=== PATIENT | female | born 1975 | race Caucasian/White ===

== ENCOUNTER 2016-08-10 14:38 | Emergency (ER) | payer MEDICARE, MEDICAID ==
[2005-12-31 18:10] VITALS: BP 97/63
[~2016-08-10] VITALS: Ht 157.5 cm; Wt 87.7 kg
[~2016-08-10 14:38] MED LIST: ABILIFY30 MG PO; ALBUTEROL0.83 MG/ML IH; ANTABUSE250 MG PO; ATARAX; ATARAX50 MG PO; ATIVAN2 MG PO; B COMPLEX & B121 TAB PO; B12 SHOTS; BENZTROPINE1 MG PO; BUSPIRONE; CARBATROL300 MG; CATAPRES 0.1MG0.1 MG PO; CHLORPROMAZINE10 M1 PO; CIPRO 500MG TA500 MG PO; CLINDAMYCIN300 MG PO; CLONAZEPAM0.5 MG PO; DESYREL 50MG50 MG PO; DEXILANT PO; DISULFIRAM250 MG; DUO-KAPS1 CAP PO; EFFEXOR 3737.5 MG/TA PO; EQUETRO300MG; FERROUSAL325 MG; FLAGYL500 MG PO; GEODON80 MG PO; HYDROXY; KLONOPIN 0.5MG0.5 MG PO; KLONOPIN 1MG1 MG PO; LAMICTAL 100MG100 MG PO; LAMICTAL CD5 MG PO; LAMICTAL XR100 MG PO; LAMICTAL XR200 MG PO; LAMICTAL150 MG PO; LATUDA80 MG PO; LEXAPRO 5MG5 MG PO; LEXAPRO20 MG PO; LIP PO; LIPITOR 80MG80 MG PO; LITHIUM 30300 MG/CAP PO; LITHIUM 60600 MG/CAP PO; LITHIUM8 MEQ/5 ML PO; METAMUCIL1 PDR PO; MINIPRESS 1M1 MG/CAP PO; MINIPRESS 5M5 MG/CAP PO; MINIPRESS2 MG; MINIPRESS2 MG PO; NEURONTIN100 MG/CAP PO; NEXIUM PO; NORCO 325 MG-51 TAB PO; OLEPTRO150 MG PO; PERCOCET 325 MG1 TA2 PO; PERCOCET 325 MG1 TAB PO; PERCOCET 500 MG1 TAB PO; PERPHENAZINE; PRIL40 PO; PRILOSEC 20MG20 MG PO; PROTONIX 40MG T40 MG PO; RT ADVAIR 228 DISKUS IH; RT SPIRIVA18 MCG IH; TAMIFLU 75MG75 MG PO; TEGRETOL100 MG PO; TRILEPTAL 300M300 MG PO; VALIUM 5MG T5 MG/TAB PO; VENLAFAXINE225 MG PO; VESICARE10 MG PO; VITAMIN B121000 MCG SQ; ZANAFLEX 4MG TAB4 MG PO; ZANTAC150 MG PO; ZIPRASIDONE; ZOCOR 80MG80 MG PO; ZOCOR5 MG; ZOFRAN 4MG T4 MG/TAB PO; ZOFRAN ODT4 MG PO; ZOLOFT 100MG100 MG PO; [UNRECOGNIZED DRUG - OTHER] PO; antibiotic
[2016-08-10 14:39] VITALS: TEMP 98
[2016-08-10 15:26] LABS: BASO % 0.2 % (0.0-2.0); EOS # 0.4 (0.0-0.7); EOS % 2.2 % (0-4.0); GRAN # 11.7 (1.4-6.5); GRAN % 71.7 % (42.2-75.2); HEMATOCRIT 41.7 % (37.0-47.0); HEMOGLOBIN 13.9 g/dl (12.5-16.0); LYMPH # 3.5 (1.2-3.4); LYMPH % 21.3 % (20.0-51.0); MEAN CELL VOLUME 100 fl (80.0-100.0); MEAN CORPUSCULAR HEMOGLOBIN 33 pg (27.0-31.0); MEAN CORPUSCULAR HGB CONC 33 g/dl (33.0-37.0); MEAN PLATELET VOLUME 8.6 fl (7.4-10.4); MONO # 0.7 (0.1-0.6); MONO % 4.3 % (1.7-9.3); PLATELET COUNT 290 K/mm3 (130-400); RED BLOOD COUNT 4.16 M/mm3 (4.10-5.30); REDCELL DISTRIBUTION WIDTH-CV 12.7 % (11.5-14.5); WHITE BLOOD COUNT 16.3 K/mm3 (4.8-10.8)
[2016-08-10 15:34] LABS: ADJUSTED CALCIUM 9.2 mg/dL (8.4-10.2); ALANINE AMINOTRANSFERASE 35 U/L (9-52); ALBUMIN 4.2 gm/dL (3.5-5.0); ALKALINE PHOSPHATASE 74 U/L (50-136); ANION GAP 11 mmol/L (7-16); BILIRUBIN,TOTAL 0.8 mg/dL (0.0-1.0); BLOOD UREA NITROGEN 7 mg/dL (7-17); CALCIUM 9.4 mg/dL (8.4-10.2); CARBON DIOXIDE 23 mmol/L (22-30); CHLORIDE 105 mmol/L (98-107); CREATININE, serum 1.08 mg/dL (0.52-1.25); GLUCOSE 60 mg/dL (74-106); LIPASE 39 U/L (23-300); POTASSIUM 3.8 mmol/L (3.4-5.0); SODIUM 139 mmol/L (137-145); TOTAL PROTEIN 6.7 gm/dL (6.4-8.2)
[2016-08-10] MEDS ORDERED: NORCO 325 MG-101 TAB PO (15:44)
[2016-08-10] MEDS ORDERED: BREO IH (15:45)
[2016-08-10 15:46] LABS: TROPONIN-I < 0.012 ng/mL (0.000-0.034)
[2016-08-10] MEDS ORDERED: LAMICTAL200 MG PO (15:47)
[2016-08-10] MEDS ORDERED: ABILIFY5 MG PO (15:47)
[2016-08-10 15:48] LABS: PH 6 (5-8); URINE APPEARANCE Hazy; URINE BACTERIA Rare /hpf; URINE BILIRUBIN Negative (NEGATIVE); URINE BLOOD 2+ (NEGATIVE); URINE COLOR Yellow; URINE GLUCOSE Negative (NEGATIVE); URINE KETONE Negative (NEGATIVE); URINE UROBILINOGEN Negative (NEGATIVE); URINE WBC 0-2 /hpf
[2016-08-10] MEDS ORDERED: LAMICTAL 100MG100 MG PO (15:48)
[2016-08-10] MEDS ORDERED: NEXIUM 40MG40 MG PO (15:49)
[2016-08-10] MEDS ORDERED: CEFTIN500 MG PO (17:21)
[2016-08-10] MEDS ORDERED: VALIUM 5MG T5 MG/TAB PO (17:23)
[2016-08-10 18:00] VITALS: BP 108/69; PULSE 64
== END 2016-08-10 18:00 | disposition home or self-care (01) ==
LOC: COL.ER 14:38
PROVIDERS: Physician Assistant
DX: R07.89 Other chest pain (principal); M62.830 Muscle spasm of back; J44.9 Chronic obstructive pulmonary disease, unspecified; F17.210 Nicotine dependence, cigarettes, uncomplicated
CPT/HCPCS: J2270

== ENCOUNTER 2016-09-12 15:14 | Emergency (ER) | payer MEDICARE, MEDICAID ==
[2005-12-31 18:10] VITALS: BP 97/63
[~2016-09-12] VITALS: Ht 157.5 cm; Wt 90.0 kg
[~2016-09-12 15:14] MED LIST changes: +ABILIFY5 MG PO; +BREO IH; +CEFTIN500 MG PO; +LAMICTAL200 MG PO; +NEXIUM 40MG40 MG PO; +NORCO 325 MG-101 TAB PO
[2016-09-12 15:15] VITALS: BP 113/82; TEMP 98.3
[2016-09-12 16:41] VITALS: PULSE 90
== END 2016-09-12 16:42 | disposition home or self-care (01) ==
LOC: COL.ER 15:14
DX: S30.0XXA Contusion of lower back and pelvis, initial encounter (principal); W01.198A Fall on same level from slipping, tripping and stumbling with subsequent striking against other object, initial encounter; Y92.009 Unspecified place in unspecified non-institutional (private) residence as the place of occurrence of the external cause
CPT/HCPCS: J1885

== ENCOUNTER 2016-12-21 10:40 | Emergency (ER) | payer MEDICARE, MEDICAID ==
[2005-12-31 18:10] VITALS: BP 97/63
[~2016-12-21] VITALS: Ht 154.9 cm; Wt 85.5 kg
[2016-12-21 10:46] VITALS: TEMP 97.7
[2016-12-21 11:37] LABS: BASO % 0.2 % (0.0-2.0); EOS # 0.2 (0.0-0.7); EOS % 1.4 % (0-4.0); GRAN # 8.6 (1.4-6.5); GRAN % 77.7 % (42.2-75.2); HEMATOCRIT 44.1 % (37.0-47.0); HEMOGLOBIN 14.6 g/dl (12.5-16.0); LYMPH # 1.6 (1.2-3.4); LYMPH % 14.8 % (20.0-51.0); MEAN CELL VOLUME 100 fl (80.0-100.0); MEAN CORPUSCULAR HEMOGLOBIN 33 pg (27.0-31.0); MEAN CORPUSCULAR HGB CONC 33 g/dl (33.0-37.0); MEAN PLATELET VOLUME 8.7 fl (7.4-10.4); MONO # 0.6 (0.1-0.6); MONO % 5.4 % (1.7-9.3); PLATELET COUNT 310 K/mm3 (130-400); RED BLOOD COUNT 4.42 M/mm3 (4.10-5.30); REDCELL DISTRIBUTION WIDTH-CV 13.2 % (11.5-14.5)
[2016-12-21 11:39] LABS: ADJUSTED CALCIUM 9.7 mg/dL (8.4-10.2); ALANINE AMINOTRANSFERASE 29 U/L (9-52); ALBUMIN 4.3 gm/dL (3.5-5.0); ALKALINE PHOSPHATASE 91 U/L (50-136); ANION GAP 9 mmol/L (7-16); BILIRUBIN,TOTAL 0.7 mg/dL (0.0-1.0); BLOOD UREA NITROGEN 2 mg/dL (7-17); CALCIUM 9.9 mg/dL (8.4-10.2); CARBON DIOXIDE 23 mmol/L (22-30); CHLORIDE 107 mmol/L (98-107); CREATININE, serum 0.83 mg/dL (0.52-1.25); GLUCOSE 96 mg/dL (74-106); POTASSIUM 3.5 mmol/L (3.4-5.0); SODIUM 139 mmol/L (137-145); TOTAL PROTEIN 7.1 gm/dL (6.4-8.2)
[2016-12-21 11:40] LABS: AMPHETAMINE URINE POSITIVE; BARBITURATES URINE NEGATIVE; BENZODIAZEPINES URINE NEGATIVE; BUPRENORPHINE URINE NEGATIVE; METHADONE URINE NEGATIVE; OPIATES URINE POSITIVE; OXYCODONE URINE NEGATIVE; PHENCYCLIDINE URINE NEGATIVE; PROPOXYPHENE URINE NEGATIVE; THC CANNABINOIDS URINE NEGATIVE
[2016-12-21] MEDS ORDERED: ABIL400 (12:25)
[2016-12-21] MEDS ORDERED: LIORESAL 1010 MG/TAB PO (12:26)
[2016-12-21] MEDS ORDERED: LITHIUM CA150 MG/CAP PO (12:36)
[2016-12-21] MEDS ORDERED: PATADAY 2.5 ML2.5 ML OU (12:41)
[2016-12-21] MEDS ORDERED: ADDERALL10 MG PO (12:42)
[2016-12-21] MEDS ORDERED: VENTOLIN0.09 MG IH (12:42)
[2016-12-21] MEDS ORDERED: BASE, PCCA POLY1 FLA (12:43)
[2016-12-21] MEDS ORDERED: REXULTI1 MG PO (12:44)
[2016-12-21] MEDS ORDERED: MYRBETR50MG PO (12:44)
[2016-12-21] MEDS ORDERED: CELEBREX 200MG200 MG PO (12:45)
[2016-12-21] MEDS ORDERED: INCRUSE EL62.5 MCG/A IH (12:45)
[2016-12-21 14:00] VITALS: BP 139/93
[2016-12-21 14:21] VITALS: PULSE 78
== END 2016-12-21 14:22 | disposition home or self-care (01) ==
LOC: COL.ER 10:40
PROVIDERS: Physician Assistant Medical
DX: R26.81 Unsteadiness on feet (principal); F31.9 Bipolar disorder, unspecified; F25.9 Schizoaffective disorder, unspecified

== ENCOUNTER 2016-12-23 09:34 | Emergency (ER) | payer MEDICARE, MEDICAID ==
[2005-12-31 18:10] VITALS: BP 97/63
[~2016-12-23] VITALS: Ht 154.9 cm; Wt 81.8 kg
[~2016-12-23 09:34] MED LIST changes: +ABIL400; +ADDERALL10 MG PO; +BASE, PCCA POLY1 FLA; +CELEBREX 200MG200 MG PO; +INCRUSE EL62.5 MCG/A IH; +LIORESAL 1010 MG/TAB PO; +LITHIUM CA150 MG/CAP PO; +MYRBETR50MG PO; +PATADAY 2.5 ML2.5 ML OU; +REXULTI1 MG PO; +VENTOLIN0.09 MG IH
[2016-12-23 09:48] VITALS: BP 131/77; TEMP 98.3
[2016-12-23 10:58] LABS: BASO % 0.2 % (0.0-2.0); EOS # 0.5 (0.0-0.7); EOS % 3.8 % (0-4.0); GRAN # 8.7 (1.4-6.5); GRAN % 71.3 % (42.2-75.2); HEMATOCRIT 42.1 % (37.0-47.0); HEMOGLOBIN 13.9 g/dl (12.5-16.0); LYMPH # 2.3 (1.2-3.4); LYMPH % 18.4 % (20.0-51.0); MEAN CELL VOLUME 100 fl (80.0-100.0); MEAN CORPUSCULAR HEMOGLOBIN 33 pg (27.0-31.0); MEAN CORPUSCULAR HGB CONC 33 g/dl (33.0-37.0); MEAN PLATELET VOLUME 8.6 fl (7.4-10.4); MONO # 0.7 (0.1-0.6); PLATELET COUNT 264 K/mm3 (130-400); RED BLOOD COUNT 4.21 M/mm3 (4.10-5.30); REDCELL DISTRIBUTION WIDTH-CV 13.3 % (11.5-14.5); WHITE BLOOD COUNT 12.3 K/mm3 (4.8-10.8)
[2016-12-23 11:16] LABS: ACETAMINOPHEN < 10 ug/mL (10-30); ADJUSTED CALCIUM 9.8 mg/dL (8.4-10.2); ALANINE AMINOTRANSFERASE 31 U/L (9-52); ALBUMIN 3.7 gm/dL (3.5-5.0); ALKALINE PHOSPHATASE 84 U/L (50-136); ANION GAP 9 mmol/L (7-16); BILIRUBIN,TOTAL 0.9 mg/dL (0.0-1.0); BLOOD UREA NITROGEN 5 mg/dL (7-17); CALCIUM 9.6 mg/dL (8.4-10.2); CARBON DIOXIDE 22 mmol/L (22-30); CHLORIDE 107 mmol/L (98-107); CREATININE, serum 1.01 mg/dL (0.52-1.25); GLUCOSE 93 mg/dL (74-106); POTASSIUM 3.5 mmol/L (3.4-5.0); SALICYLATE < 1.0 mg/dL; SODIUM 138 mmol/L (137-145); TOTAL PROTEIN 6.4 gm/dL (6.4-8.2)
[2016-12-23 11:24] LABS: AMPHETAMINE URINE POSITIVE; BARBITURATES URINE NEGATIVE; BENZODIAZEPINES URINE NEGATIVE; BUPRENORPHINE URINE NEGATIVE; METHADONE URINE NEGATIVE; OPIATES URINE POSITIVE; OXYCODONE URINE NEGATIVE; PHENCYCLIDINE URINE NEGATIVE; PROPOXYPHENE URINE NEGATIVE; THC CANNABINOIDS URINE NEGATIVE
[2016-12-23 11:24] LABS: LITHIUM 2.2 mmol/L (0.6-1.2)
[2016-12-23 17:38] VITALS: PULSE 71
== END 2016-12-23 18:00 ==
LOC: COL.ER 09:34
PROVIDERS: Nurse Practitioner
DX: F29 Unspecified psychosis not due to a substance or known physiological condition (principal); F15.90 Other stimulant use, unspecified, uncomplicated; F31.9 Bipolar disorder, unspecified; F25.9 Schizoaffective disorder, unspecified; Z90.49 Acquired absence of other specified parts of digestive tract; Z90.710 Acquired absence of both cervix and uterus

== ENCOUNTER → 2017-02-19 | Outpatient (CLI) | payer MEDICARE, MEDICAID | LOC: COL.RAD 10:00 | DX: R13.10 Dysphagia, unspecified (principal) ==

== ENCOUNTER 2017-03-19 10:52 | Emergency (ER) | payer MEDICARE, MEDICAID ==
[2005-12-31 18:10] VITALS: BP 97/63
[~2017-03-19] VITALS: Ht 157.5 cm; Wt 89.5 kg
[2017-03-19 11:09] VITALS: BP 118/73; PULSE 76; TEMP 98.7
== END 2017-03-19 13:44 | disposition home or self-care (01) ==
LOC: COL.ER 10:52
DX: G89.29 Other chronic pain (principal); M25.551 Pain in right hip; I10 Essential (primary) hypertension; F25.0 Schizoaffective disorder, bipolar type; F12.10 Cannabis abuse, uncomplicated; F17.210 Nicotine dependence, cigarettes, uncomplicated; Z90.710 Acquired absence of both cervix and uterus; Z90.49 Acquired absence of other specified parts of digestive tract; Z98.51 Tubal ligation status; Z98.890 Other specified postprocedural states
CPT/HCPCS: J1100; J1885

== ENCOUNTER → 2017-04-09 | Outpatient (CLI) | payer MEDICARE, MEDICAID | LOC: COL.CARD 04-07 11:00 | DX: R55 Syncope and collapse (principal) ==

== ENCOUNTER 2017-05-14 10:36 | Emergency (ER) | payer MEDICARE ==
[2005-12-31 18:10] VITALS: BP 97/63
[~2017-05-14] VITALS: Ht 157.5 cm; Wt 90.9 kg
[2017-05-14 10:39] VITALS: TEMP 98.6
[2017-05-14 11:41] LABS: BASO % 0.4 % (0.0-2.0); EOS # 0.2 (0.0-0.7); EOS % 1.9 % (0-4.0); GRAN # 8.1 (1.4-6.5); GRAN % 72.1 % (42.2-75.2); HEMATOCRIT 43.1 % (37.0-47.0); HEMOGLOBIN 14.3 g/dl (12.5-16.0); LYMPH # 2.2 (1.2-3.4); LYMPH % 19.6 % (20.0-51.0); MEAN CELL VOLUME 97 fl (80.0-100.0); MEAN CORPUSCULAR HEMOGLOBIN 32 pg (27.0-31.0); MEAN CORPUSCULAR HGB CONC 33 g/dl (33.0-37.0); MONO # 0.6 (0.1-0.6); MONO % 5.6 % (1.7-9.3); PLATELET COUNT 320 K/mm3 (130-400); RED BLOOD COUNT 4.46 M/mm3 (4.10-5.30); REDCELL DISTRIBUTION WIDTH-CV 12.5 % (11.5-14.5)
[2017-05-14 11:53] LABS: ALANINE AMINOTRANSFERASE 28 U/L (9-52); ALBUMIN 4.4 gm/dL (3.5-5.0); ALKALINE PHOSPHATASE 110 U/L (50-136); ANION GAP 12 mmol/L (7-16); AST,SGOT 31 U/L (15-37); BILIRUBIN,TOTAL 0.6 mg/dL (0.0-1.0); BLOOD UREA NITROGEN 7 mg/dL (7-17); CALCIUM 9.5 mg/dL (8.4-10.2); CARBON DIOXIDE 25 mmol/L (22-30); CHLORIDE 107 mmol/L (98-107); CREATININE, serum 0.88 mg/dL (0.52-1.25); GLUCOSE 106 mg/dL (74-106); POTASSIUM 3.7 mmol/L (3.4-5.0); SODIUM 143 mmol/L (137-145); TOTAL PROTEIN 7.3 gm/dL (6.4-8.2)
[2017-05-14 12:07] LABS: PROLACTIN 52.8 ng/mL (3.0-18.6)
[2017-05-14 12:48] LABS: LITHIUM < 0.2 mmol/L (0.6-1.2)
[2017-05-14] MEDS ORDERED: LEXAPRO 5MG5 MG PO (13:47)
[2017-05-14] MEDS ORDERED: TRILEPTAL 300M300 MG PO (14:23)
[2017-05-14 14:39] VITALS: BP 134/85; PULSE 60
== END 2017-05-14 14:47 | disposition home or self-care (01) ==
LOC: COL.ER 10:36
PROVIDERS: Emergency Medicine
DX: G40.909 Epilepsy, unspecified, not intractable, without status epilepticus (principal); J44.9 Chronic obstructive pulmonary disease, unspecified; F17.210 Nicotine dependence, cigarettes, uncomplicated
CPT/HCPCS: J7030

== ENCOUNTER 2017-05-27 08:21 | Emergency (ER) | payer MEDICARE ==
[2005-12-31 18:10] VITALS: BP 97/63
[~2017-05-27] VITALS: Ht 157.5 cm; Wt 90.9 kg
[2017-05-27 08:24] VITALS: PULSE 90; TEMP 97.7
[2017-05-27 09:05] LABS: COLLECTION METHOD CLEAN CATCH
[2017-05-27 09:13] LABS: MUCOUS Present /lpf; PH 5 (5-8); URINE APPEARANCE Hazy; URINE BACTERIA Rare /hpf; URINE BILIRUBIN Negative (NEGATIVE); URINE BLOOD 1+ (NEGATIVE); URINE COLOR Yellow; URINE GLUCOSE Negative (NEGATIVE); URINE KETONE Negative (NEGATIVE); URINE LEUKOCYTE ESTERASE Negative (NEGATIVE); URINE NITRATE Negative (NEGATIVE); URINE PROTEIN(semi-quant) Negative (NEGATIVE); URINE RBC 0-2 /hpf; URINE UROBILINOGEN Negative (NEGATIVE)
[2017-05-27 11:09] VITALS: BP 104/69
[2017-05-27] MEDS ORDERED: MAG-OX 400400 MG/TAB PO (11:27)
== END 2017-05-27 11:18 | disposition home or self-care (01) ==
LOC: COL.ER 08:21
PROVIDERS: Physician Assistant
DX: G43.909 Migraine, unspecified, not intractable, without status migrainosus (principal); G40.909 Epilepsy, unspecified, not intractable, without status epilepticus; J44.9 Chronic obstructive pulmonary disease, unspecified; G89.29 Other chronic pain; F17.210 Nicotine dependence, cigarettes, uncomplicated
CPT/HCPCS: J0595; J2550

== ENCOUNTER 2017-05-29 19:18 | Inpatient (IN) | payer MEDICARE ==
[~2017-05-29] VITALS: Ht 157.5 cm; Wt 96.0 kg
[~2017-05-29 19:18] MED LIST changes: +MAG-OX 400400 MG/TAB PO
[2017-05-29 21:04] LABS: BASO # 0.1 (0.0-0.2); BASO % 0.4 % (0.0-2.0); EOS # 0.4 (0.0-0.7); EOS % 2.7 % (0-4.0); GRAN # 8.3 (1.4-6.5); GRAN % 63.6 % (42.2-75.2); HEMATOCRIT 40.6 % (37.0-47.0); HEMOGLOBIN 13.7 g/dl (12.5-16.0); LYMPH # 3.3 (1.2-3.4); LYMPH % 25.6 % (20.0-51.0); MEAN CELL VOLUME 94 fl (80.0-100.0); MEAN CORPUSCULAR HEMOGLOBIN 32 pg (27.0-31.0); MEAN CORPUSCULAR HGB CONC 34 g/dl (33.0-37.0); MEAN PLATELET VOLUME 8.4 fl (7.4-10.4); MONO % 7.3 % (1.7-9.3); PLATELET COUNT 367 K/mm3 (130-400); RED BLOOD COUNT 4.32 M/mm3 (4.10-5.30); REDCELL DISTRIBUTION WIDTH-CV 12.2 % (11.5-14.5)
[2017-05-29 21:19] LABS: ALANINE AMINOTRANSFERASE 31 U/L (9-52); ALBUMIN 4.4 gm/dL (3.5-5.0); ALKALINE PHOSPHATASE 101 U/L (50-136); ANION GAP 8 mmol/L (7-16); AST,SGOT 31 U/L (15-37); BILIRUBIN,TOTAL 0.6 mg/dL (0.0-1.0); BLOOD UREA NITROGEN 10 mg/dL (7-17); CALCIUM 9.3 mg/dL (8.4-10.2); CARBON DIOXIDE 22 mmol/L (22-30); CHLORIDE 94 mmol/L (98-107); CREATININE, serum 0.91 mg/dL (0.52-1.25); GLUCOSE 89 mg/dL (74-106); POTASSIUM 4.5 mmol/L (3.4-5.0); SODIUM 124 mmol/L (137-145); TOTAL PROTEIN 7.4 gm/dL (6.4-8.2)
[2017-05-29 21:20] LABS: C-REACTIVE PROTEIN < 0.5 mg/dL (0.0-0.9)
[2017-05-29] MEDS ORDERED: TRILEPTAL600 MG PO (21:41)
[2017-05-29] MEDS ORDERED: GEODON80 MG PO (21:45)
[2017-05-29 23:49] VITALS: BP 115/75; PULSE 78; TEMP 97.4
[2017-05-30 04:18] VITALS: BP 114/78; PULSE 66; TEMP 97.6
[2017-05-30 04:24] LABS: BASO % 0.4 % (0.0-2.0); EOS # 0.5 (0.0-0.7); EOS % 4.2 % (0-4.0); GRAN # 5.7 (1.4-6.5); GRAN % 52.4 % (42.2-75.2); HEMATOCRIT 38.2 % (37.0-47.0); HEMOGLOBIN 12.9 g/dl (12.5-16.0); LYMPH # 3.7 (1.2-3.4); LYMPH % 34.3 % (20.0-51.0); MEAN CELL VOLUME 93 fl (80.0-100.0); MEAN CORPUSCULAR HEMOGLOBIN 32 pg (27.0-31.0); MEAN CORPUSCULAR HGB CONC 34 g/dl (33.0-37.0); MEAN PLATELET VOLUME 8.4 fl (7.4-10.4); MONO # 0.9 (0.1-0.6); MONO % 8.4 % (1.7-9.3); PLATELET COUNT 327 K/mm3 (130-400); REDCELL DISTRIBUTION WIDTH-CV 12.3 % (11.5-14.5)
[2017-05-30 04:34] LABS: CALCIUM 8.8 mg/dL (8.4-10.2); CHOLESTEROL RISK RATIO 4.4; CREATININE, serum 0.87 mg/dL (0.52-1.25); POTASSIUM 4.1 mmol/L (3.4-5.0)
[2017-05-30 07:32] VITALS: BP 110/70; PULSE 74; TEMP 98.1
[2017-05-30 11:54] VITALS: BP 110/70; PULSE 67; TEMP 97.9
[2017-05-30 15:38] VITALS: BP 111/67; PULSE 69; TEMP 97.9
[2017-05-30 19:15] VITALS: BP 113/65; PULSE 64; TEMP 97.9
[2017-05-31 00:07] VITALS: BP 98/59; PULSE 70; TEMP 97.8
[2017-05-31 04:57] VITALS: BP 99/57; PULSE 66; TEMP 98.2
[2017-05-31 04:59] LABS: MAGNESIUM 1.6 mg/dL (1.6-2.3)
[2017-05-31 08:11] VITALS: BP 102/59; PULSE 81; TEMP 98.2
[2017-05-31] MEDS ORDERED: PERCOCET 325 MG1 TA2 PO (10:41)
[2017-05-31 11:54] VITALS: BP 93/60; PULSE 64; TEMP 97.9
[2017-05-31 15:08] VITALS: BP 107/44; PULSE 72; TEMP 98.6
[2017-05-31 15:12] VITALS: BP 108/63; PULSE 73; TEMP 97.6
[2017-05-31] MEDS ORDERED: LEXAPRO 10MG10 MG PO (16:17)
[2017-05-31] MEDS ORDERED: CLARITIN 1010 MG/TAB PO (16:22)
[2017-05-31] MEDS ORDERED: SINGULAIR 110 MG/TAB PO (16:22)
[2017-05-31] MEDS ORDERED: NEXIUM 40MG40 MG PO (16:22)
[2017-05-31] MEDS ORDERED: NEURONTIN300 MG/CAP PO (16:23)
[2017-05-31] MEDS ORDERED: ENABLEX15 MG PO (16:23)
[2017-05-31] MEDS ORDERED: TORADOL 10MG TA10 MG PO (16:24)
[2017-05-31] MEDS ORDERED: D3-5050000 IU PO (16:24)
[2017-05-31] MEDS ORDERED: LAMICTAL 25MG T25 MG PO (16:30)
== END 2017-05-31 17:45 | disposition home or self-care (01) | DRG 641 ==
LOC: COL.ER 19:18 → MEDICAL 21:31
PROVIDERS: Emergency Medicine; Nurse Practitioner
DX: E87.1 Hypo-osmolality and hyponatremia (principal); R56.9 Unspecified convulsions; J44.9 Chronic obstructive pulmonary disease, unspecified; T42.1X5A Adverse effect of iminostilbenes, initial encounter; F31.9 Bipolar disorder, unspecified; F17.210 Nicotine dependence, cigarettes, uncomplicated; G43.119 Migraine with aura, intractable, without status migrainosus
CPT/HCPCS: 99222-AI; 99232-AI; 99239; J0595; J1170; J1200; J1885; J2405; J2550; J2765; J7030; J7040; J7050; Q9967

== ENCOUNTER 2017-06-05 11:50 | Emergency (ER) | payer MEDICARE ==
[2005-12-31 18:10] VITALS: BP 97/63
[~2017-06-05] VITALS: Ht 157.5 cm; Wt 90.9 kg
[~2017-06-05 11:50] MED LIST changes: +CLARITIN 1010 MG/TAB PO; +D3-5050000 IU PO; +ENABLEX15 MG PO; +LAMICTAL 25MG T25 MG PO; +LEXAPRO 10MG10 MG PO; +NEURONTIN300 MG/CAP PO; +SINGULAIR 110 MG/TAB PO; +TORADOL 10MG TA10 MG PO; +TRILEPTAL600 MG PO
[2017-06-05 11:55] VITALS: TEMP 98.8
[2017-06-05 13:52] LABS: BASO % 0.3 % (0.0-2.0); EOS # 0.3 (0.0-0.7); EOS % 2.9 % (0-4.0); GRAN % 68.4 % (42.2-75.2); HEMATOCRIT 40.8 % (37.0-47.0); HEMOGLOBIN 13.2 g/dl (12.5-16.0); LYMPH # 2.2 (1.2-3.4); LYMPH % 21.6 % (20.0-51.0); MEAN CELL VOLUME 97 fl (80.0-100.0); MEAN CORPUSCULAR HEMOGLOBIN 31 pg (27.0-31.0); MEAN CORPUSCULAR HGB CONC 32 g/dl (33.0-37.0); MEAN PLATELET VOLUME 8.8 fl (7.4-10.4); MONO # 0.7 (0.1-0.6); MONO % 6.6 % (1.7-9.3); PLATELET COUNT 311 K/mm3 (130-400); RED BLOOD COUNT 4.21 M/mm3 (4.10-5.30); REDCELL DISTRIBUTION WIDTH-CV 13.1 % (11.5-14.5)
[2017-06-05 14:07] LABS: ALANINE AMINOTRANSFERASE 38 U/L (9-52); ALBUMIN 4.3 gm/dL (3.5-5.0); ALKALINE PHOSPHATASE 107 U/L (50-136); ANION GAP 7 mmol/L (7-16); AST,SGOT 32 U/L (15-37); BILIRUBIN,TOTAL 0.5 mg/dL (0.0-1.0); BLOOD UREA NITROGEN 9 mg/dL (7-17); CALCIUM 9.7 mg/dL (8.4-10.2); CARBON DIOXIDE 23 mmol/L (22-30); CHLORIDE 106 mmol/L (98-107); CREATININE, serum 1.03 mg/dL (0.52-1.25); GLUCOSE 103 mg/dL (74-106); POTASSIUM 4.1 mmol/L (3.4-5.0); SODIUM 136 mmol/L (137-145); TOTAL PROTEIN 7.3 gm/dL (6.4-8.2)
[2017-06-05 14:18] LABS: C-REACTIVE PROTEIN < 0.5 mg/dL (0.0-0.9)
[2017-06-05 14:19] LABS: COLLECTION METHOD CLEAN CATCH
[2017-06-05 14:25] LABS: MUCOUS Present /lpf; PH 7 (5-8); URINE APPEARANCE Clear; URINE BACTERIA Rare /hpf; URINE BILIRUBIN Negative (NEGATIVE); URINE BLOOD 2+ (NEGATIVE); URINE COLOR Yellow; URINE GLUCOSE Negative (NEGATIVE); URINE KETONE Negative (NEGATIVE); URINE LEUKOCYTE ESTERASE Negative (NEGATIVE); URINE NITRATE Negative (NEGATIVE); URINE PROTEIN(semi-quant) Negative (NEGATIVE); URINE RBC 0-2 /hpf; URINE UROBILINOGEN Negative (NEGATIVE)
[2017-06-05 15:54] VITALS: BP 116/78; PULSE 78
== END 2017-06-05 15:58 | disposition home or self-care (01) ==
LOC: COL.ER 11:50
PROVIDERS: Family Medicine
DX: G43.909 Migraine, unspecified, not intractable, without status migrainosus (principal); G40.909 Epilepsy, unspecified, not intractable, without status epilepticus; F17.210 Nicotine dependence, cigarettes, uncomplicated
CPT/HCPCS: J1170; J1885; J2405; J7030

== ENCOUNTER 2017-06-09 14:02 | Emergency (ER) | payer MEDICARE ==
[2005-12-31 18:10] VITALS: BP 97/63
[~2017-06-09] VITALS: Ht 157.5 cm; Wt 90.9 kg
[2017-06-09 14:05] VITALS: BP 112/65; TEMP 98.6
[2017-06-09 16:14] VITALS: PULSE 82
== END 2017-06-09 16:15 | disposition home or self-care (01) ==
LOC: COL.ER 14:02
DX: G43.909 Migraine, unspecified, not intractable, without status migrainosus (principal); F31.9 Bipolar disorder, unspecified
CPT/HCPCS: J1170; J2060; J2405

== ENCOUNTER 2017-06-19 15:09 | Emergency (ER) | payer MEDICARE, MEDICAID ==
[2005-12-31 18:10] VITALS: BP 97/63
[~2017-06-19] VITALS: Ht 157.5 cm; Wt 90.9 kg
[2017-06-19 15:20] VITALS: BP 120/71; TEMP 99.3
[2017-06-19] MEDS ORDERED: SEROQUEL50 MG PO (15:48)
[2017-06-19] MEDS ORDERED: SEROQUEL 2525 MG/TAB PO (15:48)
[2017-06-19 16:18] LABS: CALCIUM 9.7 mg/dL (8.4-10.2); CREATININE, serum 1.06 mg/dL (0.52-1.25); POTASSIUM 4.4 mmol/L (3.4-5.0)
[2017-06-19 18:20] VITALS: PULSE 98
== END 2017-06-19 18:23 | disposition home or self-care (01) ==
LOC: COL.ER 15:09
PROVIDERS: Emergency Medicine
DX: G43.909 Migraine, unspecified, not intractable, without status migrainosus (principal); J44.9 Chronic obstructive pulmonary disease, unspecified; F25.9 Schizoaffective disorder, unspecified; F31.9 Bipolar disorder, unspecified; F17.210 Nicotine dependence, cigarettes, uncomplicated; Z98.51 Tubal ligation status; Z90.710 Acquired absence of both cervix and uterus; Z79.51 Long term (current) use of inhaled steroids
CPT/HCPCS: J0780; J1170; J1200; J1885; J7030

== ENCOUNTER 2017-07-03 23:08 | Emergency (ER) | payer MEDICARE, MEDICAID ==
[~2017-07-03] VITALS: Ht 157.5 cm; Wt 92.3 kg
[~2017-07-03 23:08] MED LIST changes: +SEROQUEL 2525 MG/TAB PO; +SEROQUEL50 MG PO
[2017-07-03 23:29] LABS: BASO % 0.3 % (0.0-2.0); EOS # 0.1 (0.0-0.7); EOS % 0.6 % (0-4.0); GRAN # 12.7 (1.4-6.5); GRAN % 80.2 % (42.2-75.2); HEMATOCRIT 40.9 % (37.0-47.0); HEMOGLOBIN 13.1 g/dl (12.5-16.0); LYMPH # 2.1 (1.2-3.4); LYMPH % 13.4 % (20.0-51.0); MEAN CELL VOLUME 97 fl (80.0-100.0); MEAN CORPUSCULAR HEMOGLOBIN 31 pg (27.0-31.0); MEAN CORPUSCULAR HGB CONC 32 g/dl (33.0-37.0); MEAN PLATELET VOLUME 8.5 fl (7.4-10.4); MONO # 0.8 (0.1-0.6); MONO % 5.1 % (1.7-9.3); PLATELET COUNT 294 K/mm3 (130-400); RED BLOOD COUNT 4.23 M/mm3 (4.10-5.30); REDCELL DISTRIBUTION WIDTH-CV 13.2 % (11.5-14.5)
[2017-07-03 23:40] LABS: ALANINE AMINOTRANSFERASE 30 U/L (9-52); ALBUMIN 3.7 gm/dL (3.5-5.0); ALCOHOL(ethanol),MEDICAL < 10 mg/dL; ALKALINE PHOSPHATASE 92 U/L (50-136); ANION GAP 10 mmol/L (7-16); AST,SGOT 22 U/L (15-37); BILIRUBIN,TOTAL 0.5 mg/dL (0.0-1.0); BLOOD UREA NITROGEN 8 mg/dL (7-17); CALCIUM 8.6 mg/dL (8.4-10.2); CARBON DIOXIDE 19 mmol/L (22-30); CHLORIDE 114 mmol/L (98-107); GLUCOSE 117 mg/dL (74-106); POTASSIUM 3.7 mmol/L (3.4-5.0); SODIUM 142 mmol/L (137-145); TOTAL PROTEIN 6.5 gm/dL (6.4-8.2)
[2017-07-03 23:56] LABS: PROLACTIN 82.4 ng/mL (3.0-18.6)
[2017-07-03 23:57] LABS: ACETAMINOPHEN 189 ug/mL (10-30); SALICYLATE < 1.0 mg/dL
[2017-07-04 03:00] LABS: INR 1.1 (0.8-3.0); PROTHROMBIN TIME 12.3 SECONDS (9.7-12.8)
[2017-07-04 03:00] LABS: COLLECTION METHOD CLEAN CATCH
[2017-07-04 03:05] LABS: PH 5 (5-8); SQUAMOUS EPITHELIAL 0-2 /hpf; URINE APPEARANCE Clear; URINE BACTERIA None Seen /hpf; URINE BILIRUBIN Negative (NEGATIVE); URINE BLOOD Negative (NEGATIVE); URINE COLOR Yellow; URINE GLUCOSE Negative (NEGATIVE); URINE KETONE Negative (NEGATIVE); URINE LEUKOCYTE ESTERASE Negative (NEGATIVE); URINE NITRATE Negative (NEGATIVE); URINE PROTEIN(semi-quant) Negative (NEGATIVE); URINE RBC 0-2 /hpf; URINE UROBILINOGEN Negative (NEGATIVE)
[2017-07-04 04:05] VITALS: BP 132/84; PULSE 74
[2017-07-04 07:37] LABS: TRICYCLIC ANTIDEPRESS URINE POSITIVE
== END 2017-07-04 04:05 | disposition short-term general hospital (02) ==
LOC: COL.ER 23:08
PROVIDERS: Emergency Medicine
DX: G40.909 Epilepsy, unspecified, not intractable, without status epilepticus (principal); T39.1X5A Adverse effect of 4-Aminophenol derivatives, initial encounter; I10 Essential (primary) hypertension; F31.9 Bipolar disorder, unspecified; E78.5 Hyperlipidemia, unspecified; F17.210 Nicotine dependence, cigarettes, uncomplicated; Z98.51 Tubal ligation status; Z90.710 Acquired absence of both cervix and uterus; Z98.890 Other specified postprocedural states; Z79.51 Long term (current) use of inhaled steroids
CPT/HCPCS: J0132; J7030; J7060

== ENCOUNTER 2017-07-25 13:46 | Emergency (ER) | payer MEDICARE, MEDICAID ==
[2005-12-31 18:10] VITALS: BP 97/63
[~2017-07-25] VITALS: Ht 157.5 cm; Wt 93.2 kg
[2017-07-25 13:50] VITALS: BP 127/71; TEMP 98.9
[2017-07-25 14:34] LABS: COLLECTION METHOD CLEAN CATCH
[2017-07-25 14:38] LABS: BASO % 0.3 % (0.0-2.0); EOS # 0.3 (0.0-0.7); EOS % 2.2 % (0-4.0); GRAN # 7.9 (1.4-6.5); GRAN % 66.4 % (42.2-75.2); HEMATOCRIT 39.1 % (37.0-47.0); HEMOGLOBIN 12.8 g/dl (12.5-16.0); LYMPH # 2.9 (1.2-3.4); LYMPH % 24.7 % (20.0-51.0); MEAN CELL VOLUME 94 fl (80.0-100.0); MEAN CORPUSCULAR HEMOGLOBIN 31 pg (27.0-31.0); MEAN CORPUSCULAR HGB CONC 33 g/dl (33.0-37.0); MEAN PLATELET VOLUME 8.6 fl (7.4-10.4); MONO # 0.7 (0.1-0.6); MONO % 6.1 % (1.7-9.3); PLATELET COUNT 337 K/mm3 (130-400); RED BLOOD COUNT 4.15 M/mm3 (4.10-5.30); REDCELL DISTRIBUTION WIDTH-CV 13.7 % (11.5-14.5)
[2017-07-25 14:40] LABS: PH 6 (5-8); SQUAMOUS EPITHELIAL 0-2 /hpf; URINE APPEARANCE Clear; URINE BACTERIA None Seen /hpf; URINE BILIRUBIN Negative (NEGATIVE); URINE BLOOD Negative (NEGATIVE); URINE COLOR Straw; URINE GLUCOSE Negative (NEGATIVE); URINE KETONE Negative (NEGATIVE); URINE LEUKOCYTE ESTERASE Negative (NEGATIVE); URINE NITRATE Negative (NEGATIVE); URINE PROTEIN(semi-quant) Negative (NEGATIVE); URINE RBC 0-2 /hpf; URINE UROBILINOGEN Negative (NEGATIVE)
[2017-07-25 14:42] LABS: PROTHROMBIN TIME 11.1 SECONDS (9.7-12.8)
[2017-07-25 14:48] LABS: ACETAMINOPHEN < 10 ug/mL (10-30); ALANINE AMINOTRANSFERASE 53 U/L (9-52); ALBUMIN 3.8 gm/dL (3.5-5.0); ALKALINE PHOSPHATASE 103 U/L (50-136); ANION GAP 11 mmol/L (7-16); AST,SGOT 24 U/L (15-37); BILIRUBIN,TOTAL 0.4 mg/dL (0.0-1.0); BLOOD UREA NITROGEN 15 mg/dL (7-17); CARBON DIOXIDE 24 mmol/L (22-30); CHLORIDE 105 mmol/L (98-107); CREATININE, serum 1.06 mg/dL (0.52-1.25); GLUCOSE 99 mg/dL (74-106); LIPASE 29 U/L (23-300); SALICYLATE < 1.0 mg/dL; SODIUM 140 mmol/L (137-145)
[2017-07-25] MEDS ORDERED: ULTRAM 50MG TAB50 MG PO (15:32)
[2017-07-25 16:35] VITALS: PULSE 64
== END 2017-07-25 16:35 | disposition home or self-care (01) ==
LOC: COL.ER 13:46
PROVIDERS: Emergency Medicine
DX: R10.12 Left upper quadrant pain (principal)
CPT/HCPCS: J1885; J2270; J7030

== ENCOUNTER 2017-08-07 23:10 | Emergency (ER) | payer MEDICARE, MEDICAID ==
[2005-12-31 18:10] VITALS: BP 97/63
[~2017-08-07] VITALS: Ht 157.5 cm; Wt 95.5 kg
[2017-08-07 23:10] VITALS: BP 108/72; TEMP 97.5
[~2017-08-07 23:10] MED LIST changes: +ULTRAM 50MG TAB50 MG PO
[2017-08-07 23:55] LABS: BASO % 0.3 % (0.0-2.0); EOS # 0.3 (0.0-0.7); EOS % 2.1 % (0-4.0); GRAN # 9.1 (1.4-6.5); GRAN % 68.1 % (42.2-75.2); HEMATOCRIT 38.3 % (37.0-47.0); HEMOGLOBIN 12.6 g/dl (12.5-16.0); LYMPH % 22.3 % (20.0-51.0); MEAN CELL VOLUME 91 fl (80.0-100.0); MEAN CORPUSCULAR HEMOGLOBIN 30 pg (27.0-31.0); MEAN CORPUSCULAR HGB CONC 33 g/dl (33.0-37.0); MEAN PLATELET VOLUME 8.5 fl (7.4-10.4); MONO # 0.9 (0.1-0.6); MONO % 6.8 % (1.7-9.3); PLATELET COUNT 384 K/mm3 (130-400); RED BLOOD COUNT 4.19 M/mm3 (4.10-5.30); REDCELL DISTRIBUTION WIDTH-CV 13.5 % (11.5-14.5)
[2017-08-08 00:02] LABS: INR 1.1 (0.8-3.0); PROTHROMBIN TIME 12.4 SECONDS (9.7-12.8)
[2017-08-08 00:05] LABS: PARTIAL THROMBOPLASTIN TIME 32.2 SECONDS (26.0-37.0)
[2017-08-08 00:06] LABS: D-DIMER < 200.00 ng/mLDDu (200-230)
[2017-08-08 00:08] LABS: ALANINE AMINOTRANSFERASE 40 U/L (9-52); ALBUMIN 3.6 gm/dL (3.5-5.0); ALKALINE PHOSPHATASE 117 U/L (50-136); ANION GAP 11 mmol/L (7-16); AST,SGOT 32 U/L (15-37); BLOOD UREA NITROGEN 12 mg/dL (7-17); CALCIUM 8.8 mg/dL (8.4-10.2); CARBON DIOXIDE 26 mmol/L (22-30); CHLORIDE 105 mmol/L (98-107); GLUCOSE 92 mg/dL (74-106); POTASSIUM 3.3 mmol/L (3.4-5.0); SODIUM 142 mmol/L (137-145); TOTAL PROTEIN 6.9 gm/dL (6.4-8.2)
[2017-08-08 00:17] LABS: TROPONIN-I < 0.012 ng/mL (0.000-0.034)
[2017-08-08] MEDS ORDERED: KLONOPIN 0.5MG0.5 MG PO (00:25)
[2017-08-08] MEDS ORDERED: MAG-OX 400400 MG/TAB PO (00:26)
[2017-08-08 02:38] VITALS: PULSE 69
== END 2017-08-08 02:36 | disposition home or self-care (01) ==
LOC: COL.ER 23:10
PROVIDERS: Family Medicine
DX: R07.89 Other chest pain (principal); G43.909 Migraine, unspecified, not intractable, without status migrainosus; J44.9 Chronic obstructive pulmonary disease, unspecified; F31.9 Bipolar disorder, unspecified; Z79.51 Long term (current) use of inhaled steroids

== ENCOUNTER 2017-08-24 11:15 | Outpatient (RCR) | payer MEDICARE, MEDICAID | END 2017-09-20 14:12 | disposition home or self-care (01) | LOC: WSPT 11:15 | DX: M54.41 Lumbago with sciatica, right side (principal); M25.80 Other specified joint disorders, unspecified joint; G89.29 Other chronic pain | CPT/HCPCS: G8978-GP; G8979-GP ==

== ENCOUNTER 2017-08-26 13:58 | Emergency (ER) | payer MEDICARE, MEDICAID ==
[2005-12-31 18:10] VITALS: BP 97/63
[~2017-08-26] VITALS: Ht 157.5 cm; Wt 90.9 kg
[2017-08-26 14:00] VITALS: TEMP 97.2
[2017-08-26 15:22] LABS: BASO % 0.3 % (0.0-2.0); EOS # 0.3 (0.0-0.7); EOS % 3.4 % (0-4.0); GRAN # 5.7 (1.4-6.5); GRAN % 60.9 % (42.2-75.2); HEMATOCRIT 40.7 % (37.0-47.0); HEMOGLOBIN 13.4 g/dl (12.5-16.0); LYMPH # 2.6 (1.2-3.4); LYMPH % 27.6 % (20.0-51.0); MEAN CELL VOLUME 88 fl (80.0-100.0); MEAN CORPUSCULAR HEMOGLOBIN 29 pg (27.0-31.0); MEAN CORPUSCULAR HGB CONC 33 g/dl (33.0-37.0); MONO # 0.7 (0.1-0.6); MONO % 7.5 % (1.7-9.3); PLATELET COUNT 308 K/mm3 (130-400); RED BLOOD COUNT 4.61 M/mm3 (4.10-5.30); REDCELL DISTRIBUTION WIDTH-CV 13.8 % (11.5-14.5)
[2017-08-26 15:36] LABS: ALBUMIN 3.8 gm/dL (3.5-5.0); BILIRUBIN,TOTAL 0.5 mg/dL (0.0-1.0); CALCIUM 9.2 mg/dL (8.4-10.2); CREATININE, serum 1.13 mg/dL (0.52-1.25); POTASSIUM 3.1 mmol/L (3.4-5.0); TOTAL PROTEIN 7.3 gm/dL (6.4-8.2)
[2017-08-26 16:26] LABS: TROPONIN-I < 0.012 ng/mL (0.000-0.034)
[2017-08-26 16:31] LABS: PROLACTIN 76.9 ng/mL (3.0-18.6)
[2017-08-26 17:06] VITALS: BP 117/70; PULSE 66
== END 2017-08-26 17:08 | disposition home or self-care (01) ==
LOC: COL.ER 13:58
PROVIDERS: Emergency Medicine
DX: R55 Syncope and collapse (principal); I10 Essential (primary) hypertension; J44.9 Chronic obstructive pulmonary disease, unspecified; G40.909 Epilepsy, unspecified, not intractable, without status epilepticus; G43.909 Migraine, unspecified, not intractable, without status migrainosus; E78.5 Hyperlipidemia, unspecified; F17.210 Nicotine dependence, cigarettes, uncomplicated; Z90.49 Acquired absence of other specified parts of digestive tract; Z90.710 Acquired absence of both cervix and uterus; Z98.890 Other specified postprocedural states; Z98.51 Tubal ligation status; Z79.51 Long term (current) use of inhaled steroids

== ENCOUNTER 2017-09-13 14:11 | Emergency (ER) | payer MEDICARE, MEDICAID ==
[2005-12-31 18:10] VITALS: BP 97/63
[~2017-09-13] VITALS: Ht 157.5 cm; Wt 93.5 kg
[2017-09-13 14:15] VITALS: TEMP 97.9
[2017-09-13 15:50] LABS: ALANINE AMINOTRANSFERASE 36 U/L (9-52); ALKALINE PHOSPHATASE 122 U/L (50-136); ANION GAP 11 mmol/L (7-16); AST,SGOT 39 U/L (15-37); BILIRUBIN,TOTAL 0.7 mg/dL (0.0-1.0); CALCIUM 9.4 mg/dL (8.4-10.2); CARBON DIOXIDE 24 mmol/L (22-30); CHLORIDE 102 mmol/L (98-107); CREATININE, serum 1.03 mg/dL (0.52-1.25); GLUCOSE 106 mg/dL (74-106); POTASSIUM 3.9 mmol/L (3.4-5.0); SODIUM 137 mmol/L (137-145); TOTAL PROTEIN 7.5 gm/dL (6.4-8.2)
[2017-09-13 15:56] LABS: ACETAMINOPHEN < 10 ug/mL (10-30); ALCOHOL(ethanol),MEDICAL < 10 mg/dL; SALICYLATE < 1.0 mg/dL
[2017-09-13 16:07] LABS: ALBUMIN 3.9 gm/dL (3.5-5.0); BLOOD UREA NITROGEN 7 mg/dL (7-17)
[2017-09-13 16:16] LABS: TRICYCLIC ANTIDEPRESS URINE NEGATIVE
[2017-09-13 19:23] VITALS: BP 101/72; PULSE 64
== END 2017-09-13 19:24 | disposition home or self-care (01) ==
LOC: COL.ER 14:11
PROVIDERS: Emergency Medicine
DX: R51 Headache (principal); Z79.51 Long term (current) use of inhaled steroids
CPT/HCPCS: J2765

== ENCOUNTER → 2017-09-22 | Outpatient (CLI) | payer MEDICARE, MEDICAID | LOC: COL.RAD 07:10 | DX: I34.1 Nonrheumatic mitral (valve) prolapse (principal); G40.909 Epilepsy, unspecified, not intractable, without status epilepticus; H53.462 Homonymous bilateral field defects, left side; R41.82 Altered mental status, unspecified; G43.009 Migraine without aura, not intractable, without status migrainosus ==

== ENCOUNTER 2017-10-03 21:00 | Emergency (ER) | payer MEDICARE, MEDICAID ==
[2005-12-31 18:10] VITALS: BP 97/63
[~2017-10-03] VITALS: Ht 157.5 cm; Wt 93.6 kg
[2017-10-03 21:03] VITALS: BP 115/68; TEMP 98.8
[2017-10-03 23:35] VITALS: PULSE 89
== END 2017-10-03 23:35 | disposition home or self-care (01) ==
LOC: COL.ER 21:00
DX: G43.909 Migraine, unspecified, not intractable, without status migrainosus (principal); E78.5 Hyperlipidemia, unspecified; F31.9 Bipolar disorder, unspecified; F17.210 Nicotine dependence, cigarettes, uncomplicated; F12.90 Cannabis use, unspecified, uncomplicated; Z98.51 Tubal ligation status; Z98.890 Other specified postprocedural states
CPT/HCPCS: J1170; J1885

== ENCOUNTER 2017-10-13 11:45 | Outpatient (RCR) | payer MEDICARE, MEDICAID ==
[2017-10-29] MEDS ORDERED: ASPI325T6 PO (07:47)
[2017-10-29] MEDS ORDERED: KLONOPIN 1MG1 MG PO (07:50)
[2017-10-29] MEDS ORDERED: CYANOCOBAL1000 MCG/M IM (07:51)
[2017-10-29] MEDS ORDERED: ZETIA 10MG TAB10 MG PO (07:55)
[2017-10-29] MEDS ORDERED: FLONASE NASAL S16 GM NS (07:56)
[2017-10-29] MEDS ORDERED: MELATONIN5 M1 PO (08:14)
[2017-10-29] MEDS ORDERED: ALEVE 220MG220 MG PO (08:15)
[2017-10-29] MEDS ORDERED: VITAMIND3 5000 PO (08:17)
[2017-10-29] MEDS ORDERED: NATURAL IRON65 MG PO (08:18)
[2017-10-29] MEDS ORDERED: VITAMIN C500 MG PO (08:18)
[2017-11-07] MEDS ORDERED: KLONOPIN 0.5MG0.5 MG PO (12:55)
[2017-11-07] MEDS ORDERED: NEXIUM 40MG40 MG PO (12:57)
[2017-11-07] MEDS ORDERED: HCTZ 25MG TAB25 MG PO (12:59)
[2017-11-07] MEDS ORDERED: PATADAY 2.5 ML2.5 ML OU (13:02)
[2017-11-07] MEDS ORDERED: K-TAB20 PO (13:03)
[2017-11-07] MEDS ORDERED: D3-5050000 IU PO (13:05)
[2017-11-07] MEDS ORDERED: FLEXERIL 1010 MG/TAB PO (13:06)
[2017-11-07] MEDS ORDERED: LIDODERM 5% PATC1 EA TP (13:24)
== END 2018-01-04 | disposition home or self-care (01) ==
LOC: WSPT
DX: M54.5 Low back pain (principal); G89.29 Other chronic pain; M53.3 Sacrococcygeal disorders, not elsewhere classified; M70.72 Other bursitis of hip, left hip; M70.71 Other bursitis of hip, right hip; M76.30 Iliotibial band syndrome, unspecified leg; Z79.899 Other long term (current) drug therapy; Z79.82 Long term (current) use of aspirin; F17.210 Nicotine dependence, cigarettes, uncomplicated; Z68.38 Body mass index [BMI] 38.0-38.9, adult
CPT/HCPCS: G8978-GP; G8979-GP

== ENCOUNTER 2017-10-14 11:30 | Outpatient (RCR) | payer MEDICARE, MEDICAID ==
[2017-10-29] MEDS ORDERED: ASPI325T6 PO (07:47)
[2017-10-29] MEDS ORDERED: KLONOPIN 1MG1 MG PO (07:50)
[2017-10-29] MEDS ORDERED: CYANOCOBAL1000 MCG/M IM (07:51)
[2017-10-29] MEDS ORDERED: ZETIA 10MG TAB10 MG PO (07:55)
[2017-10-29] MEDS ORDERED: FLONASE NASAL S16 GM NS (07:56)
[2017-10-29] MEDS ORDERED: MELATONIN5 M1 PO (08:14)
[2017-10-29] MEDS ORDERED: ALEVE 220MG220 MG PO (08:15)
[2017-10-29] MEDS ORDERED: VITAMIND3 5000 PO (08:17)
[2017-10-29] MEDS ORDERED: VITAMIN C500 MG PO (08:18)
[2017-10-29] MEDS ORDERED: NATURAL IRON65 MG PO (08:18)
[2017-11-07] MEDS ORDERED: KLONOPIN 0.5MG0.5 MG PO (12:55)
[2017-11-07] MEDS ORDERED: NEXIUM 40MG40 MG PO (12:57)
[2017-11-07] MEDS ORDERED: HCTZ 25MG TAB25 MG PO (12:59)
[2017-11-07] MEDS ORDERED: PATADAY 2.5 ML2.5 ML OU (13:02)
[2017-11-07] MEDS ORDERED: K-TAB20 PO (13:03)
[2017-11-07] MEDS ORDERED: D3-5050000 IU PO (13:05)
[2017-11-07] MEDS ORDERED: FLEXERIL 1010 MG/TAB PO (13:06)
[2017-11-07] MEDS ORDERED: LIDODERM 5% PATC1 EA TP (13:24)
== END 2017-12-02 11:16 | disposition home or self-care (01) ==
LOC: WSOT 11:30
DX: G56.03 Carpal tunnel syndrome, bilateral upper limbs (principal)
CPT/HCPCS: G8987-GO; G8988-GO

== ENCOUNTER 2017-10-29 07:13 | Outpatient (CLI) | payer MEDICARE, MEDICAID ==
[2005-12-31 18:10] VITALS: BP 97/63
[~2017-10-29] VITALS: Ht 157.6 cm; Wt 91.0 kg
[2017-10-29] MEDS ORDERED: ASPI325T6 PO (07:47)
[2017-10-29] MEDS ORDERED: KLONOPIN 1MG1 MG PO (07:50)
[2017-10-29] MEDS ORDERED: CYANOCOBAL1000 MCG/M IM (07:51)
[2017-10-29] MEDS ORDERED: ZETIA 10MG TAB10 MG PO (07:55)
[2017-10-29] MEDS ORDERED: FLONASE NASAL S16 GM NS (07:56)
[2017-10-29] MEDS ORDERED: MELATONIN5 M1 PO (08:14)
[2017-10-29] MEDS ORDERED: ALEVE 220MG220 MG PO (08:15)
[2017-10-29] MEDS ORDERED: VITAMIND3 5000 PO (08:17)
[2017-10-29] MEDS ORDERED: NATURAL IRON65 MG PO (08:18)
[2017-10-29] MEDS ORDERED: VITAMIN C500 MG PO (08:18)
[2017-10-29 08:42] VITALS: BP 104/59; PULSE 83; TEMP 98.6
[2017-10-29 10:22] VITALS: BP 108/64; PULSE 74; TEMP 97.2
[2017-10-29 10:54] VITALS: BP 99/66; PULSE 68
== END 2017-10-29 11:36 | disposition home or self-care (01) ==
LOC: COL.CAR 07:13
DX: R55 Syncope and collapse (principal); G43.909 Migraine, unspecified, not intractable, without status migrainosus

== ENCOUNTER 2017-11-07 12:06 | Emergency (ER) | payer MEDICARE, MEDICAID ==
[2005-12-31 18:10] VITALS: BP 97/63
[~2017-11-07] VITALS: Ht 157.5 cm; Wt 92.4 kg
[~2017-11-07 12:06] MED LIST changes: -FLEXERIL 1010 MG/TAB PO; -HCTZ 25MG TAB25 MG PO; -K-TAB20 PO; -LIDODERM 5% PATC1 EA TP
[2017-11-07 12:09] VITALS: BP 132/82; PULSE 99; TEMP 98.7
[2017-11-07] MEDS ORDERED: KLONOPIN 0.5MG0.5 MG PO (12:55)
[2017-11-07] MEDS ORDERED: NEXIUM 40MG40 MG PO (12:57)
[2017-11-07] MEDS ORDERED: HCTZ 25MG TAB25 MG PO (12:59)
[2017-11-07] MEDS ORDERED: PATADAY 2.5 ML2.5 ML OU (13:02)
[2017-11-07] MEDS ORDERED: K-TAB20 PO (13:03)
[2017-11-07] MEDS ORDERED: D3-5050000 IU PO (13:05)
[2017-11-07] MEDS ORDERED: FLEXERIL 1010 MG/TAB PO (13:06)
[2017-11-07] MEDS ORDERED: LIDODERM 5% PATC1 EA TP (13:24)
== END 2017-11-07 13:26 | disposition home or self-care (01) ==
LOC: COL.ER 12:06
DX: M54.5 Low back pain (principal); F31.9 Bipolar disorder, unspecified; G89.29 Other chronic pain; F41.9 Anxiety disorder, unspecified; F17.210 Nicotine dependence, cigarettes, uncomplicated; Z79.51 Long term (current) use of inhaled steroids; X50.0XXA Overexertion from strenuous movement or load, initial encounter; Y92.096 Garden or yard of other non-institutional residence as the place of occurrence of the external cause

== ENCOUNTER → 2017-11-07 | Outpatient (CLI) | payer MEDICARE, MEDICAID ==
[~2017-11-07] MED LIST changes: +ALEVE 220MG220 MG PO; +ASPI325T6 PO; +CYANOCOBAL1000 MCG/M IM; +FLEXERIL 1010 MG/TAB PO; +FLONASE NASAL S16 GM NS; +HCTZ 25MG TAB25 MG PO; +K-TAB20 PO; +LIDODERM 5% PATC1 EA TP; +MELATONIN5 M1 PO; +NATURAL IRON65 MG PO; +VITAMIN C500 MG PO; +VITAMIND3 5000 PO; +ZETIA 10MG TAB10 MG PO
== END ==
LOC: COL.RAD 11:44
DX: M54.17 Radiculopathy, lumbosacral region (principal); Z96.9 Presence of functional implant, unspecified

== ENCOUNTER 2018-01-21 07:38 | Day surgery (SDC) | payer MEDICARE, MEDICAID ==
[2005-12-31 18:10] VITALS: BP 97/63
[~2018-01-21] VITALS: Ht 157.5 cm; Wt 94.9 kg
[~2018-01-21 07:38] MED LIST changes: +FLEXERIL 1010 MG/TAB PO; +HCTZ 25MG TAB25 MG PO; +K-TAB20 PO; +LIDODERM 5% PATC1 EA TP
[2018-01-21 08:17] VITALS: BP 103/68; PULSE 77; TEMP 98.5
[2018-01-21] MEDS ORDERED: LAMICTAL200 MG PO (08:28)
[2018-01-21] MEDS ORDERED: LEXAPRO20 MG PO (08:38)
[2018-01-21] MEDS ORDERED: ROXICODONE 55 MG/TAB PO (08:50)
[2018-01-21 10:47] VITALS: BP 96/64; PULSE 71; TEMP 98
[2018-01-21 11:02] VITALS: BP 95/54; PULSE 70
[2018-01-21 11:17] VITALS: BP 95/55; PULSE 69
== END 2018-01-21 11:31 | disposition home or self-care (01) ==
LOC: SDCO 07:38
DX: N39.41 Urge incontinence (principal); R15.2 Fecal urgency; R35.0 Frequency of micturition; J44.9 Chronic obstructive pulmonary disease, unspecified; K21.9 Gastro-esophageal reflux disease without esophagitis; E78.5 Hyperlipidemia, unspecified; G47.33 Obstructive sleep apnea (adult) (pediatric); G62.9 Polyneuropathy, unspecified; G89.29 Other chronic pain; M54.5 Low back pain; F17.210 Nicotine dependence, cigarettes, uncomplicated; F32.9 Major depressive disorder, single episode, unspecified; G43.909 Migraine, unspecified, not intractable, without status migrainosus; E66.9 Obesity, unspecified; Z68.37 Body mass index [BMI] 37.0-37.9, adult; Z90.49 Acquired absence of other specified parts of digestive tract; Z90.710 Acquired absence of both cervix and uterus; Z79.82 Long term (current) use of aspirin; Z88.1 Allergy status to other antibiotic agents; Z88.8 Allergy status to other drugs, medicaments and biological substances; Z84.1 Family history of disorders of kidney and ureter; Z82.49 Family history of ischemic heart disease and other diseases of the circulatory system
CPT/HCPCS: C1767; C1778; C1787; C1894; J1100; J1885; J2250; J2405; J2704; J3010; J7120

== ENCOUNTER → 2018-01-25 | Outpatient (CLI) | payer MEDICARE, MEDICAID ==
[~2018-01-25] VITALS: Ht 154.9 cm; Wt 95.7 kg
[~2018-01-25] MED LIST changes: +ROXICODONE 55 MG/TAB PO
[2018-01-25 08:17] VITALS: BP 90/60; PULSE 72
== END ==
LOC: LIGHT 07:47
DX: G47.33 Obstructive sleep apnea (adult) (pediatric) (principal); M54.5 Low back pain; F32.9 Major depressive disorder, single episode, unspecified; E66.9 Obesity, unspecified; Z68.39 Body mass index [BMI] 39.0-39.9, adult; Z71.3 Dietary counseling and surveillance
CPT/HCPCS: G0463

== ENCOUNTER 2018-02-19 12:15 | Emergency (ER) | payer MEDICARE, MEDICAID ==
[2005-12-31 18:10] VITALS: BP 97/63
[~2018-02-19] VITALS: Ht 154.9 cm; Wt 95.5 kg
[2018-02-19 12:22] VITALS: TEMP 99.4
[2018-02-19 13:39] LABS: BASO % 0.3 % (0.0-2.0); EOS # 0.3 (0.0-0.7); EOS % 3.3 % (0-4.0); GRAN # 6.3 (1.4-6.5); GRAN % 70.8 % (42.2-75.2); HEMATOCRIT 47.7 % (37.0-47.0); HEMOGLOBIN 16.5 g/dl (12.5-16.0); LYMPH # 1.6 (1.2-3.4); MEAN CELL VOLUME 99 fl (80.0-100.0); MEAN CORPUSCULAR HEMOGLOBIN 34 pg (27.0-31.0); MEAN CORPUSCULAR HGB CONC 35 g/dl (33.0-37.0); MEAN PLATELET VOLUME 8.4 fl (7.4-10.4); MONO # 0.7 (0.1-0.6); MONO % 7.3 % (1.7-9.3); PLATELET COUNT 260 K/mm3 (130-400); RED BLOOD COUNT 4.81 M/mm3 (4.10-5.30); REDCELL DISTRIBUTION WIDTH-CV 12.5 % (11.5-14.5)
[2018-02-19 13:49] LABS: ALANINE AMINOTRANSFERASE 33 U/L (9-52); ALBUMIN 3.8 gm/dL (3.5-5.0); ALKALINE PHOSPHATASE 80 U/L (50-136); ANION GAP 5 mmol/L (7-16); AST,SGOT 24 U/L (15-37); BILIRUBIN,TOTAL 0.7 mg/dL (0.0-1.0); BLOOD UREA NITROGEN 13 mg/dL (7-17); CALCIUM 9.2 mg/dL (8.4-10.2); CARBON DIOXIDE 29 mmol/L (22-30); CHLORIDE 106 mmol/L (98-107); CREATININE, serum 0.88 mg/dL (0.52-1.25); GLUCOSE 99 mg/dL (74-106); POTASSIUM 4.1 mmol/L (3.4-5.0); SODIUM 140 mmol/L (137-145); TOTAL PROTEIN 6.6 gm/dL (6.4-8.2)
[2018-02-19 14:00] LABS: TROPONIN-I < 0.012 ng/mL (0.000-0.034)
[2018-02-19 16:20] VITALS: BP 107/69; PULSE 65
== END 2018-02-19 16:23 | disposition home or self-care (01) ==
LOC: COL.ER 12:15
PROVIDERS: Physician Assistant Medical
DX: R07.89 Other chest pain (principal); M79.662 Pain in left lower leg; F25.9 Schizoaffective disorder, unspecified; E78.5 Hyperlipidemia, unspecified; F17.210 Nicotine dependence, cigarettes, uncomplicated; Z90.49 Acquired absence of other specified parts of digestive tract; Z90.710 Acquired absence of both cervix and uterus; Z98.51 Tubal ligation status; Z98.890 Other specified postprocedural states; Z88.6 Allergy status to analgesic agent; Z88.8 Allergy status to other drugs, medicaments and biological substances
CPT/HCPCS: J2270; J2405

== ENCOUNTER → 2018-02-22 | Outpatient (CLI) | payer MEDICARE, MEDICAID ==
[~2018-02-22] VITALS: Ht 154.9 cm; Wt 95.7 kg
== END ==
LOC: LIGHT 09:52
DX: G47.33 Obstructive sleep apnea (adult) (pediatric) (principal); M54.5 Low back pain; E66.01 Morbid (severe) obesity due to excess calories; Z68.39 Body mass index [BMI] 39.0-39.9, adult; Z71.3 Dietary counseling and surveillance

== ENCOUNTER 2018-02-23 11:57 | Emergency (ER) | payer MEDICARE, MEDICAID ==
[2005-12-31 18:10] VITALS: BP 97/63
[~2018-02-23] VITALS: Ht 154.9 cm; Wt 95.5 kg
[2018-02-23 12:04] VITALS: BP 112/59; TEMP 99
[2018-02-23 16:56] VITALS: PULSE 63
== END 2018-02-23 16:59 | disposition home or self-care (01) ==
LOC: COL.ER 11:57
DX: J44.1 Chronic obstructive pulmonary disease with (acute) exacerbation (principal); R51 Headache; E78.5 Hyperlipidemia, unspecified; F31.9 Bipolar disorder, unspecified; F41.9 Anxiety disorder, unspecified; Z90.49 Acquired absence of other specified parts of digestive tract; Z98.51 Tubal ligation status
CPT/HCPCS: J2270; J8540

== ENCOUNTER → 2018-03-08 | Outpatient (CLI) | payer MEDICARE, MEDICAID ==
[~2018-03-08] VITALS: Ht 154.9 cm; Wt 95.0 kg
[2018-03-08 14:05] VITALS: BP 100/60; PULSE 72
== END ==
LOC: LIGHT 13:53
DX: G47.33 Obstructive sleep apnea (adult) (pediatric) (principal); M54.5 Low back pain; F32.9 Major depressive disorder, single episode, unspecified; E66.9 Obesity, unspecified; Z68.39 Body mass index [BMI] 39.0-39.9, adult; Z71.3 Dietary counseling and surveillance
CPT/HCPCS: G0463

== ENCOUNTER 2018-03-25 21:01 | Emergency (ER) | payer MEDICARE, MEDICAID ==
[2005-12-31 18:10] VITALS: BP 97/63
[~2018-03-25] VITALS: Ht 154.9 cm; Wt 93.2 kg
[2018-03-25 21:06] VITALS: TEMP 98
[2018-03-25 21:38] LABS: BASO % 0.3 % (0.0-2.0); EOS # 0.1 (0.0-0.7); EOS % 0.9 % (0-4.0); GRAN # 7.7 (1.4-6.5); GRAN % 79.5 % (42.2-75.2); HEMATOCRIT 46.2 % (37.0-47.0); HEMOGLOBIN 15.7 g/dl (12.5-16.0); LYMPH # 1.1 (1.2-3.4); LYMPH % 11.8 % (20.0-51.0); MEAN CELL VOLUME 99 fl (80.0-100.0); MEAN CORPUSCULAR HEMOGLOBIN 34 pg (27.0-31.0); MEAN CORPUSCULAR HGB CONC 34 g/dl (33.0-37.0); MEAN PLATELET VOLUME 8.7 fl (7.4-10.4); MONO # 0.7 (0.1-0.6); MONO % 7.2 % (1.7-9.3); PLATELET COUNT 219 K/mm3 (130-400); RED BLOOD COUNT 4.69 M/mm3 (4.10-5.30); REDCELL DISTRIBUTION WIDTH-CV 11.8 % (11.5-14.5)
[2018-03-25 21:59] LABS: ALANINE AMINOTRANSFERASE 35 U/L (9-52); ALBUMIN 3.7 gm/dL (3.5-5.0); ALKALINE PHOSPHATASE 82 U/L (50-136); ANION GAP 6 mmol/L (7-16); AST,SGOT 27 U/L (15-37); BILIRUBIN,TOTAL 0.5 mg/dL (0.0-1.0); BLOOD UREA NITROGEN 10 mg/dL (7-17); CARBON DIOXIDE 26 mmol/L (22-30); CHLORIDE 109 mmol/L (98-107); CREATININE, serum 0.89 mg/dL (0.52-1.25); GLUCOSE 109 mg/dL (74-106); LIPASE 56 U/L (23-300); POTASSIUM 3.6 mmol/L (3.4-5.0); SODIUM 140 mmol/L (137-145); TOTAL PROTEIN 6.4 gm/dL (6.4-8.2)
[2018-03-25 22:00] LABS: INR 0.9 (0.8-3.0); PROTHROMBIN TIME 10.7 SECONDS (9.7-12.8)
[2018-03-25 22:14] LABS: TROPONIN-I < 0.012 ng/mL (0.000-0.034)
[2018-03-25] MEDS ORDERED: NITROSTAT0.4 MG/TAB SL (23:17)
[2018-03-26 01:49] VITALS: BP 110/63; PULSE 72
[2018-03-28] VITALS (336 sets, daily range): O2SAT 88–100
[2018-03-29] VITALS (250 sets, daily range): O2SAT 88–100
== END 2018-03-26 02:12 | disposition home or self-care (01) ==
LOC: COL.ER 21:01
PROVIDERS: Emergency Medicine
DX: R07.89 Other chest pain (principal); Z79.51 Long term (current) use of inhaled steroids; Z79.82 Long term (current) use of aspirin
CPT/HCPCS: J0780; J1170; J7030

== ENCOUNTER 2018-03-28 06:41 | Day surgery (SDC) | payer MEDICARE, MEDICAID ==
[~2018-03-28] VITALS: Ht 154.9 cm; Wt 92.5 kg
[2018-03-28] VITALS (18 sets, daily range): BP systolic 99–132; BP diastolic 50–86; PULSE 67–90; TEMP 98–99.2
[~2018-03-28 06:41] MED LIST changes: +NITROSTAT0.4 MG/TAB SL
[2018-03-28 07:27] LABS: HEMOGLOBIN 16.5 g/dl (12.5-16.0); MEAN CELL VOLUME 97 fl (80.0-100.0); MEAN CORPUSCULAR HEMOGLOBIN 33 pg (27.0-31.0); MEAN CORPUSCULAR HGB CONC 34 g/dl (33.0-37.0); PLATELET COUNT 149 K/mm3 (130-400); RED BLOOD COUNT 4.94 M/mm3 (4.10-5.30); REDCELL DISTRIBUTION WIDTH-CV 11.9 % (11.5-14.5)
[2018-03-28 07:32] LABS: INR 1.1 (0.8-3.0); PROTHROMBIN TIME 12.9 SECONDS (9.7-12.8)
[2018-03-28] MEDS ORDERED: NITROSTAT0.4 MG/TAB SL (08:03)
[2018-03-28 08:05] LABS: CALCIUM 8.7 mg/dL (8.4-10.2); CREATININE, serum 0.86 mg/dL (0.52-1.25); POTASSIUM 3.9 mmol/L (3.4-5.0)
[2018-03-28] MEDS ORDERED: VITAMIN B-625 MG PO (08:06)
[2018-03-28] MEDS ORDERED: ZANAFLEX2 MG PO (14:44)
[2018-03-29] VITALS: BP 93/52; PULSE 76
[2018-03-29 04:00] VITALS: BP 104/59; PULSE 83; TEMP 98.2
[2018-03-29 05:38] LABS: BASO % 0.3 % (0.0-2.0); EOS # 0.1 (0.0-0.7); EOS % 1.3 % (0-4.0); GRAN # 6.4 (1.4-6.5); GRAN % 69.1 % (42.2-75.2); HEMATOCRIT 45.3 % (37.0-47.0); HEMOGLOBIN 15.3 g/dl (12.5-16.0); LYMPH # 1.9 (1.2-3.4); LYMPH % 19.9 % (20.0-51.0); MEAN CELL VOLUME 97 fl (80.0-100.0); MEAN CORPUSCULAR HEMOGLOBIN 33 pg (27.0-31.0); MEAN CORPUSCULAR HGB CONC 34 g/dl (33.0-37.0); MEAN PLATELET VOLUME 8.9 fl (7.4-10.4); MONO # 0.9 (0.1-0.6); MONO % 9.2 % (1.7-9.3); PLATELET COUNT 131 K/mm3 (130-400); RED BLOOD COUNT 4.66 M/mm3 (4.10-5.30); REDCELL DISTRIBUTION WIDTH-CV 12.1 % (11.5-14.5)
[2018-03-29 05:47] LABS: CALCIUM 8.7 mg/dL (8.4-10.2); CREATININE, serum 0.85 mg/dL (0.52-1.25); POTASSIUM 3.9 mmol/L (3.4-5.0)
[2018-03-29 08:15] VITALS: BP 111/56; PULSE 89; TEMP 98.3
[2018-03-29] MEDS ORDERED: BRILINTA90 MG PO (09:18)
[2018-03-29] MEDS ORDERED: TOPROL XL 25MG25 MG PO (09:19)
[2018-03-29] MEDS ORDERED: ASPIRIN E.C. 8181 MG PO (11:59)
== END 2018-03-29 12:00 | disposition home or self-care (01) ==
LOC: COL.CAR 06:41 → ICU 11:00 → COL.CAR 03-29 12:00
PROVIDERS: Internal Medicine Cardiovascular Disease; Nurse Practitioner
DX: I25.10 Atherosclerotic heart disease of native coronary artery without angina pectoris (principal); G47.33 Obstructive sleep apnea (adult) (pediatric); I34.1 Nonrheumatic mitral (valve) prolapse; F17.210 Nicotine dependence, cigarettes, uncomplicated; F41.9 Anxiety disorder, unspecified; F31.9 Bipolar disorder, unspecified; I10 Essential (primary) hypertension; E78.2 Mixed hyperlipidemia; G40.909 Epilepsy, unspecified, not intractable, without status epilepticus; K21.9 Gastro-esophageal reflux disease without esophagitis; I42.9 Cardiomyopathy, unspecified; Z82.49 Family history of ischemic heart disease and other diseases of the circulatory system; F32.89 Other specified depressive episodes; Z79.899 Other long term (current) drug therapy; Z79.82 Long term (current) use of aspirin
CPT/HCPCS: OP; C1725; C1760; C1769; C1874; C1887; C1894; C9600; J0583; J1644; J2250; J3010; Q9967

== ENCOUNTER 2018-04-01 14:30 | Observation (INO) | payer MEDICARE, MEDICAID ==
[~2018-04-01] VITALS: Ht 154.9 cm; Wt 94.3 kg
[~2018-04-01 14:30] MED LIST changes: +ASPIRIN E.C. 8181 MG PO; +BRILINTA90 MG PO; +TOPROL XL 25MG25 MG PO; +VITAMIN B-625 MG PO; +ZANAFLEX2 MG PO
[2018-04-01 14:52] LABS: BASO # 0.1 (0.0-0.2); BASO % 0.3 % (0.0-2.0); EOS # 0.2 (0.0-0.7); GRAN % 76.9 % (42.2-75.2); HEMATOCRIT 46.4 % (37.0-47.0); LYMPH # 2.5 (1.2-3.4); LYMPH % 13.6 % (20.0-51.0); MEAN CELL VOLUME 98 fl (80.0-100.0); MEAN CORPUSCULAR HEMOGLOBIN 34 pg (27.0-31.0); MEAN CORPUSCULAR HGB CONC 35 g/dl (33.0-37.0); MEAN PLATELET VOLUME 8.6 fl (7.4-10.4); MONO # 1.4 (0.1-0.6); MONO % 7.7 % (1.7-9.3); PLATELET COUNT 220 K/mm3 (130-400); RED BLOOD COUNT 4.76 M/mm3 (4.10-5.30); REDCELL DISTRIBUTION WIDTH-CV 11.9 % (11.5-14.5)
[2018-04-01 14:59] LABS: PROTHROMBIN TIME 11.3 SECONDS (9.7-12.8)
[2018-04-01 15:01] LABS: ALBUMIN 3.8 gm/dL (3.5-5.0); CALCIUM 8.8 mg/dL (8.4-10.2); CREATININE, serum 1.19 mg/dL (0.52-1.25); POTASSIUM 3.3 mmol/L (3.4-5.0); TOTAL PROTEIN 6.7 gm/dL (6.4-8.2)
[2018-04-01 15:12] LABS: TROPONIN-I 0.024 ng/mL (0.000-0.034)
[2018-04-01 21:53] VITALS: BP 92/50; PULSE 65; TEMP 98.5
[2018-04-01] MEDS ORDERED: KLONOPIN 0.5MG0.5 MG PO (22:15)
[2018-04-02] VITALS (7 sets, daily range): BP systolic 84–101; BP diastolic 33–58; PULSE 55–66; TEMP 97.4–98.2
[2018-04-02 06:08] LABS: BASO % 0.3 % (0.0-2.0); EOS # 0.2 (0.0-0.7); EOS % 2.3 % (0-4.0); GRAN # 6.3 (1.4-6.5); GRAN % 66.8 % (42.2-75.2); HEMATOCRIT 42.8 % (37.0-47.0); HEMOGLOBIN 14.6 g/dl (12.5-16.0); LYMPH # 1.9 (1.2-3.4); LYMPH % 19.7 % (20.0-51.0); MEAN CELL VOLUME 97 fl (80.0-100.0); MEAN CORPUSCULAR HEMOGLOBIN 33 pg (27.0-31.0); MEAN CORPUSCULAR HGB CONC 34 g/dl (33.0-37.0); MEAN PLATELET VOLUME 8.5 fl (7.4-10.4); MONO % 10.4 % (1.7-9.3); PLATELET COUNT 198 K/mm3 (130-400); RED BLOOD COUNT 4.42 M/mm3 (4.10-5.30); REDCELL DISTRIBUTION WIDTH-CV 11.9 % (11.5-14.5)
[2018-04-02 06:21] LABS: CALCIUM 8.3 mg/dL (8.4-10.2); CREATININE, serum 0.88 mg/dL (0.52-1.25); POTASSIUM 3.3 mmol/L (3.4-5.0)
[2018-04-02 10:53] LABS: COLLECTION METHOD CLEAN CATCH
[2018-04-02 11:03] LABS: PH 5 (5-8); URINE APPEARANCE Clear; URINE BACTERIA None Seen /hpf; URINE BILIRUBIN Negative (NEGATIVE); URINE BLOOD Negative (NEGATIVE); URINE COLOR Yellow; URINE GLUCOSE Negative (NEGATIVE); URINE KETONE Negative (NEGATIVE); URINE LEUKOCYTE ESTERASE Negative (NEGATIVE); URINE NITRATE Negative (NEGATIVE); URINE PROTEIN(semi-quant) Negative (NEGATIVE); URINE RBC 0-2 /hpf; URINE UROBILINOGEN Negative (NEGATIVE)
[2018-04-05] MEDS ORDERED: CHANTIX 1MG1 MG PO (13:57)
== END 2018-04-02 10:58 | disposition left against medical advice (07) ==
LOC: COL.ER 14:30 → MEDICAL 20:42
PROVIDERS: Emergency Medicine; Nurse Practitioner
DX: Z53.21 Procedure and treatment not carried out due to patient leaving prior to being seen by health care provider (principal); D72.829 Elevated white blood cell count, unspecified; E87.6 Hypokalemia; J44.9 Chronic obstructive pulmonary disease, unspecified; I25.10 Atherosclerotic heart disease of native coronary artery without angina pectoris; Z95.5 Presence of coronary angioplasty implant and graft; R56.9 Unspecified convulsions; F17.210 Nicotine dependence, cigarettes, uncomplicated; Z79.899 Other long term (current) drug therapy; Z79.82 Long term (current) use of aspirin; R07.89 Other chest pain; F31.9 Bipolar disorder, unspecified; Z96.9 Presence of functional implant, unspecified
CPT/HCPCS: G0378; J2270; J3010; J7030; J7040; Q9967

== ENCOUNTER → 2018-04-05 | Outpatient (CLI) | payer MEDICARE, MEDICAID ==
[~2018-04-05] VITALS: Ht 154.9 cm; Wt 93.0 kg
[~2018-04-05] MED LIST changes: +CHANTIX 1MG1 MG PO
[2018-04-05 13:58] VITALS: BP 94/52; PULSE 64
== END ==
LOC: LIGHT 13:42
DX: G47.33 Obstructive sleep apnea (adult) (pediatric) (principal); M54.5 Low back pain; F32.9 Major depressive disorder, single episode, unspecified; E66.9 Obesity, unspecified; Z68.38 Body mass index [BMI] 38.0-38.9, adult; Z71.3 Dietary counseling and surveillance
CPT/HCPCS: G0463

== ENCOUNTER 2018-04-08 11:15 | Emergency (ER) | payer MEDICARE, MEDICAID ==
[2005-12-31 18:10] VITALS: BP 97/63
[~2018-04-08] VITALS: Ht 154.9 cm; Wt 93.2 kg
[2018-04-08 11:18] VITALS: BP 115/68; TEMP 98
[2018-04-08 12:22] LABS: BASO % 0.4 % (0.0-2.0); EOS # 0.2 (0.0-0.7); EOS % 2.2 % (0-4.0); GRAN # 7.2 (1.4-6.5); HEMATOCRIT 44.7 % (37.0-47.0); LYMPH % 19.5 % (20.0-51.0); MEAN CELL VOLUME 98 fl (80.0-100.0); MEAN CORPUSCULAR HEMOGLOBIN 33 pg (27.0-31.0); MEAN CORPUSCULAR HGB CONC 34 g/dl (33.0-37.0); MEAN PLATELET VOLUME 8.1 fl (7.4-10.4); MONO # 0.9 (0.1-0.6); MONO % 8.5 % (1.7-9.3); PLATELET COUNT 340 K/mm3 (130-400); RED BLOOD COUNT 4.57 M/mm3 (4.10-5.30)
[2018-04-08 12:25] LABS: ALBUMIN 3.3 gm/dL (3.5-5.0); BILIRUBIN,TOTAL 0.6 mg/dL (0.0-1.0); CALCIUM 8.8 mg/dL (8.4-10.2); CREATININE, serum 0.92 mg/dL (0.52-1.25); POTASSIUM 3.8 mmol/L (3.4-5.0); TOTAL PROTEIN 6.1 gm/dL (6.4-8.2)
[2018-04-08 12:41] LABS: PROLACTIN 50.9 ng/mL (3.0-18.6)
[2018-04-08 13:00] LABS: COLLECTION METHOD CLEAN CATCH
[2018-04-08 13:11] LABS: MUCOUS Present /lpf; PH 5 (5-8); URINE APPEARANCE Clear; URINE BACTERIA None Seen /hpf; URINE BILIRUBIN Negative (NEGATIVE); URINE BLOOD Negative (NEGATIVE); URINE COLOR Yellow; URINE GLUCOSE Negative (NEGATIVE); URINE KETONE Negative (NEGATIVE); URINE LEUKOCYTE ESTERASE Negative (NEGATIVE); URINE NITRATE Negative (NEGATIVE); URINE PROTEIN(semi-quant) Negative (NEGATIVE); URINE UROBILINOGEN Negative (NEGATIVE); URINE WBC None Seen /hpf
[2018-04-08 16:39] VITALS: PULSE 67
== END 2018-04-08 16:39 | disposition home or self-care (01) ==
LOC: COL.ER 11:15
PROVIDERS: Emergency Medicine
DX: G40.909 Epilepsy, unspecified, not intractable, without status epilepticus (principal); J44.9 Chronic obstructive pulmonary disease, unspecified; I25.10 Atherosclerotic heart disease of native coronary artery without angina pectoris; F17.210 Nicotine dependence, cigarettes, uncomplicated; Z79.82 Long term (current) use of aspirin; Z79.51 Long term (current) use of inhaled steroids
CPT/HCPCS: J2060

== ENCOUNTER 2018-04-13 15:50 | Outpatient (RCR) | payer MEDICARE, MEDICAID ==
[2018-05-23] MEDS ORDERED: D3-5050000 IU (11:37)
[2018-05-23] MEDS ORDERED: TOPAMAX 25MG25 M1 PO (11:40)
[2018-07-01] MEDS ORDERED: TAMIFLU 75MG75 MG PO (20:40)
== END 2018-07-10 | disposition home or self-care (01) ==
LOC: COL.CR
DX: Z48.812 Encounter for surgical aftercare following surgery on the circulatory system (principal); Z95.5 Presence of coronary angioplasty implant and graft

== ENCOUNTER 2018-04-29 19:21 | Emergency (ER) | payer MEDICARE, MEDICAID ==
[2005-12-31 18:10] VITALS: BP 97/63
[~2018-04-29] VITALS: Ht 154.9 cm; Wt 93.2 kg
[2018-04-29 19:25] VITALS: TEMP 98.8
[2018-04-29 21:31] LABS: BASO % 0.2 % (0.0-2.0); EOS # 0.4 (0.0-0.7); EOS % 3.2 % (0-4.0); GRAN # 8.6 (1.4-6.5); GRAN % 71.3 % (42.2-75.2); HEMATOCRIT 42.4 % (37.0-47.0); HEMOGLOBIN 14.1 g/dl (12.5-16.0); LYMPH # 2.3 (1.2-3.4); LYMPH % 18.8 % (20.0-51.0); MEAN CELL VOLUME 101 fl (80.0-100.0); MEAN CORPUSCULAR HEMOGLOBIN 34 pg (27.0-31.0); MEAN CORPUSCULAR HGB CONC 33 g/dl (33.0-37.0); MEAN PLATELET VOLUME 7.9 fl (7.4-10.4); MONO # 0.7 (0.1-0.6); MONO % 6.1 % (1.7-9.3); PLATELET COUNT 291 K/mm3 (130-400); REDCELL DISTRIBUTION WIDTH-CV 13.2 % (11.5-14.5)
[2018-04-29 21:44] LABS: ALANINE AMINOTRANSFERASE 24 U/L (9-52); ALKALINE PHOSPHATASE 101 U/L (50-136); ANION GAP 4 mmol/L (7-16); AST,SGOT 25 U/L (15-37); BILIRUBIN,TOTAL 0.5 mg/dL (0.0-1.0); BLOOD UREA NITROGEN 10 mg/dL (7-17); CALCIUM 9.4 mg/dL (8.4-10.2); CARBON DIOXIDE 30 mmol/L (22-30); CHLORIDE 105 mmol/L (98-107); CREATININE, serum 1.15 mg/dL (0.52-1.25); GLUCOSE 91 mg/dL (74-106); POTASSIUM 3.8 mmol/L (3.4-5.0); SODIUM 139 mmol/L (137-145); TOTAL PROTEIN 6.9 gm/dL (6.4-8.2)
[2018-04-29 21:57] LABS: TROPONIN-I < 0.012 ng/mL (0.000-0.034)
[2018-04-29 22:32] VITALS: BP 99/77; PULSE 71
== END 2018-04-29 22:38 | disposition home or self-care (01) ==
LOC: COL.ER 19:21
PROVIDERS: Emergency Medicine
DX: J44.9 Chronic obstructive pulmonary disease, unspecified (principal); R07.81 Pleurodynia; G89.29 Other chronic pain; I10 Essential (primary) hypertension; F17.210 Nicotine dependence, cigarettes, uncomplicated; Z79.82 Long term (current) use of aspirin; Z79.891 Long term (current) use of opiate analgesic; Z95.5 Presence of coronary angioplasty implant and graft
CPT/HCPCS: J3010

== ENCOUNTER → 2018-05-02 | Outpatient (CLI) | payer MEDICARE, MEDICAID | LOC: COL.RAD 08:10 | DX: R51 Headache (principal) ==

== ENCOUNTER → 2018-05-20 | Outpatient (CLI) | payer MEDICARE, MEDICAID ==
[~2018-05-20] MED LIST changes: +D3-5050000 IU; +TOPAMAX 25MG25 M1 PO
== END ==
LOC: COL.RAD 11:30
DX: G44.311 Acute post-traumatic headache, intractable (principal)

== ENCOUNTER 2018-05-23 10:35 | Emergency (ER) | payer MEDICARE, MEDICAID ==
[2005-12-31 18:10] VITALS: BP 97/63
[~2018-05-23] VITALS: Ht 154.9 cm; Wt 91.4 kg
[~2018-05-23 10:35] MED LIST changes: -D3-5050000 IU; -TOPAMAX 25MG25 M1 PO
[2018-05-23 10:50] VITALS: TEMP 98
[2018-05-23] MEDS ORDERED: D3-5050000 IU (11:37)
[2018-05-23] MEDS ORDERED: TOPAMAX 25MG25 M1 PO (11:40)
[2018-05-23 12:18] LABS: BASO % 0.3 % (0.0-2.0); EOS # 0.3 (0.0-0.7); EOS % 3.6 % (0-4.0); GRAN # 7.1 (1.4-6.5); GRAN % 75.5 % (42.2-75.2); HEMOGLOBIN 13.7 g/dl (12.5-16.0); LYMPH # 1.2 (1.2-3.4); MEAN CELL VOLUME 103 fl (80.0-100.0); MEAN CORPUSCULAR HEMOGLOBIN 34 pg (27.0-31.0); MEAN CORPUSCULAR HGB CONC 33 g/dl (33.0-37.0); MEAN PLATELET VOLUME 8.8 fl (7.4-10.4); MONO # 0.7 (0.1-0.6); MONO % 7.3 % (1.7-9.3); PLATELET COUNT 252 K/mm3 (130-400); RED BLOOD COUNT 4.08 M/mm3 (4.10-5.30); REDCELL DISTRIBUTION WIDTH-CV 13.2 % (11.5-14.5)
[2018-05-23 12:34] LABS: ALANINE AMINOTRANSFERASE 38 U/L (9-52); ALBUMIN 3.2 gm/dL (3.5-5.0); ALKALINE PHOSPHATASE 80 U/L (50-136); ANION GAP 5 mmol/L (7-16); AST,SGOT 36 U/L (15-37); BILIRUBIN,TOTAL 0.5 mg/dL (0.0-1.0); BLOOD UREA NITROGEN 8 mg/dL (7-17); CALCIUM 8.7 mg/dL (8.4-10.2); CARBON DIOXIDE 25 mmol/L (22-30); CHLORIDE 110 mmol/L (98-107); CREATININE, serum 1.14 mg/dL (0.52-1.25); GLUCOSE 87 mg/dL (74-106); POTASSIUM 3.8 mmol/L (3.4-5.0); SODIUM 140 mmol/L (137-145); TOTAL PROTEIN 5.9 gm/dL (6.4-8.2)
[2018-05-23 12:35] LABS: C-REACTIVE PROTEIN < 0.5 mg/dL (0.0-0.9)
[2018-05-23 13:23] VITALS: BP 107/69; PULSE 67
== END 2018-05-23 13:32 | disposition home or self-care (01) ==
LOC: COL.ER 10:35
PROVIDERS: Family Medicine
DX: R53.81 Other malaise (principal); R53.83 Other fatigue; J44.9 Chronic obstructive pulmonary disease, unspecified; Z79.82 Long term (current) use of aspirin; Z79.51 Long term (current) use of inhaled steroids
CPT/HCPCS: J7030

== ENCOUNTER 2018-07-01 15:46 | Emergency (ER) | payer MEDICARE, MEDICAID ==
[2005-12-31 18:10] VITALS: BP 97/63
[~2018-07-01] VITALS: Ht 154.9 cm; Wt 90.9 kg
[~2018-07-01 15:46] MED LIST changes: +D3-5050000 IU; +TOPAMAX 25MG25 M1 PO
[2018-07-01 15:58] VITALS: TEMP 99.7
[2018-07-01 17:20] LABS: BASO % 0.2 % (0.0-2.0); EOS # 0.1 (0.0-0.7); EOS % 0.7 % (0-4.0); GRAN # 10.1 (1.4-6.5); GRAN % 87.3 % (42.2-75.2); HEMATOCRIT 42.6 % (37.0-47.0); HEMOGLOBIN 14.3 g/dl (12.5-16.0); LYMPH # 0.8 (1.2-3.4); LYMPH % 6.6 % (20.0-51.0); MEAN CELL VOLUME 101 fl (80.0-100.0); MEAN CORPUSCULAR HEMOGLOBIN 34 pg (27.0-31.0); MEAN CORPUSCULAR HGB CONC 34 g/dl (33.0-37.0); MEAN PLATELET VOLUME 8.7 fl (7.4-10.4); MONO # 0.6 (0.1-0.6); MONO % 4.9 % (1.7-9.3); PLATELET COUNT 266 K/mm3 (130-400); RED BLOOD COUNT 4.23 M/mm3 (4.10-5.30)
[2018-07-01 17:23] LABS: PROTHROMBIN TIME 10.8 SECONDS (9.7-12.8)
[2018-07-01 17:26] LABS: PARTIAL THROMBOPLASTIN TIME 36.8 SECONDS (26.0-37.0)
[2018-07-01 17:33] LABS: ALANINE AMINOTRANSFERASE 78 U/L (9-52); ALBUMIN 4.1 gm/dL (3.5-5.0); ALKALINE PHOSPHATASE 107 U/L (50-136); ANION GAP 8 mmol/L (7-16); AST,SGOT 46 U/L (15-37); BILIRUBIN,TOTAL 0.6 mg/dL (0.0-1.0); BLOOD UREA NITROGEN 12 mg/dL (7-17); CALCIUM 9.7 mg/dL (8.4-10.2); CARBON DIOXIDE 20 mmol/L (22-30); CHLORIDE 112 mmol/L (98-107); CREATININE, serum 1.09 mg/dL (0.52-1.25); GLUCOSE 97 mg/dL (74-106); LIPASE 106 U/L (23-300); POTASSIUM 3.5 mmol/L (3.4-5.0); SODIUM 140 mmol/L (137-145); TOTAL PROTEIN 7.2 gm/dL (6.4-8.2)
[2018-07-01 17:36] LABS: C-REACTIVE PROTEIN < 0.5 mg/dL (0.0-0.9)
[2018-07-01 17:45] LABS: TROPONIN-I < 0.012 ng/mL (0.000-0.035)
[2018-07-01] MEDS ORDERED: TAMIFLU 75MG75 MG PO (20:40)
[2018-07-01 20:47] VITALS: BP 106/65; PULSE 92
== END 2018-07-01 20:51 | disposition home or self-care (01) ==
LOC: COL.ER 15:46
PROVIDERS: Emergency Medicine
DX: J10.1 Influenza due to other identified influenza virus with other respiratory manifestations (principal); K21.9 Gastro-esophageal reflux disease without esophagitis; F17.210 Nicotine dependence, cigarettes, uncomplicated; J44.9 Chronic obstructive pulmonary disease, unspecified; I10 Essential (primary) hypertension; Z98.890 Other specified postprocedural states
CPT/HCPCS: J3010

== ENCOUNTER → 2018-07-05 | Outpatient (CLI) | payer MEDICARE, MEDICAID ==
[~2018-07-05] VITALS: Ht 154.9 cm; Wt 83.0 kg
[2018-07-05 15:19] VITALS: BP 94/64; PULSE 72
== END ==
LOC: LIGHT 05-17 08:34
DX: G47.33 Obstructive sleep apnea (adult) (pediatric) (principal); M54.5 Low back pain; F32.9 Major depressive disorder, single episode, unspecified; E66.9 Obesity, unspecified; Z68.34 Body mass index [BMI] 34.0-34.9, adult; Z71.3 Dietary counseling and surveillance
CPT/HCPCS: G0463

== ENCOUNTER 2018-07-21 19:58 | Emergency (ER) | payer MEDICARE, MEDICAID ==
[2005-12-31 18:10] VITALS: BP 97/63
[~2018-07-21] VITALS: Ht 154.9 cm; Wt 84.1 kg
[2018-07-21 20:08] VITALS: BP 120/82; PULSE 77; TEMP 98.5
[2018-07-21] MEDS ORDERED: NORCO 325 MG-51 TAB PO (21:55)
== END 2018-07-21 22:23 | disposition home or self-care (01) ==
LOC: COL.ER 19:58
DX: M54.5 Low back pain (principal); F17.210 Nicotine dependence, cigarettes, uncomplicated; Z79.82 Long term (current) use of aspirin; Z79.51 Long term (current) use of inhaled steroids

== ENCOUNTER 2018-08-02 06:02 | Day surgery (SDC) | payer MEDICARE, MEDICAID ==
[2005-12-31 18:10] VITALS: BP 97/63
[~2018-08-02] VITALS: Ht 154.9 cm; Wt 82.9 kg
[2018-08-02 06:51] VITALS: BP 101/69; PULSE 80; TEMP 97.7
[2018-08-02] MEDS ORDERED: DESYREL 100MG100 MG PO (07:17)
--- NOTE | 2018-08-02 07:19 | NUR ---
PATIENT VERY DROWSY AND SPEAKING VERY SLOW, ASKING FOR SOMETHING FOR NERVES. REVIEWED MED LIST THAT WAS ALREADY IN THE SYSTEM. PATIENT DID NOT BRING A LIST ENCOURAGED PATIENT STRONGLY TO BRING BOTTLES OF MEDS OR A LIST FROM HER PYCAIN.
--- NOTE | 2018-08-02 07:23 | NUR ---
CALL LIGHT IN REACH NO ONE WITH PATIENT, WILL NEED TO CALL FOR RIDE.
[2018-08-02 08:00] VITALS: BP 101/69; PULSE 63; TEMP 97.5
--- NOTE | 2018-08-02 08:00 | NUR ---
TO BAY 4 PER CART FROM ENDOSCOPY. AMBULTED TO RECLINER WITH 2 ASSIST AND TOLERATED WELL. ONCE IN CHAIR PATIENT ASLEEP. AROUSES TO NAME AND FALLS BACK TO SLEEP.
[2018-08-02 08:15] VITALS: BP 88/69; PULSE 67
--- NOTE | 2018-08-02 08:15 | NUR ---
MORE AWAKE AND ASKING FOR SOMETHING TO EAT AND DRINK RECEIVED WATER, OJ, AND WATER SITTING UP AND FEEDING SELF
[2018-08-02] MEDS ORDERED: DIFLUCAN200 MG PO (08:19)
[2018-08-02 08:37] VITALS: BP 99/63; PULSE 56
--- NOTE | 2018-08-02 08:37 | NUR ---
RECEIVED DISCHARGE INSTRUCTIONS AND VERBALIZED UNDERSTANDING RECEIVED PRESCRIPTION FOR DIFLUCAN
--- NOTE | 2018-08-02 08:40 | NUR ---
DR BUSTOS INTO TALK WITH PATIENT PATIENT CALLED FOR RIDE HOME
--- NOTE | 2018-08-02 09:15 | NUR ---
DISCHARGED PER WC BY NURSING STAFF TO PRIVATE CAR IN CARE OF FRIEND IVON
== END 2018-08-02 09:42 | disposition home or self-care (01) ==
LOC: SDCO 06:02
DX: K29.50 Unspecified chronic gastritis without bleeding (principal); K22.8 Other specified diseases of esophagus; K31.84 Gastroparesis; Z79.82 Long term (current) use of aspirin; Z79.899 Other long term (current) drug therapy; Z98.890 Other specified postprocedural states; Z95.5 Presence of coronary angioplasty implant and graft; E78.5 Hyperlipidemia, unspecified; J45.909 Unspecified asthma, uncomplicated; G62.9 Polyneuropathy, unspecified; E66.9 Obesity, unspecified; Z68.33 Body mass index [BMI] 33.0-33.9, adult; F31.9 Bipolar disorder, unspecified; G47.33 Obstructive sleep apnea (adult) (pediatric); Z96.9 Presence of functional implant, unspecified; Z90.710 Acquired absence of both cervix and uterus
CPT/HCPCS: OP; J2704; J3010; J7120

== ENCOUNTER 2018-08-08 17:21 | Emergency (ER) | payer MEDICARE, MEDICAID ==
[2005-12-31 18:10] VITALS: BP 97/63
[~2018-08-08] VITALS: Ht 154.9 cm; Wt 80.9 kg
[~2018-08-08 17:21] MED LIST changes: +DESYREL 100MG100 MG PO; +DIFLUCAN200 MG PO
[2018-08-08 17:35] VITALS: TEMP 98.5
[2018-08-08 19:28] LABS: BASO % 0.2 % (0.0-2.0); EOS # 0.1 (0.0-0.7); GRAN # 10.7 (1.4-6.5); GRAN % 81.1 % (42.2-75.2); HEMATOCRIT 43.2 % (37.0-47.0); HEMOGLOBIN 14.5 g/dl (12.5-16.0); LYMPH # 1.5 (1.2-3.4); LYMPH % 11.3 % (20.0-51.0); MEAN CELL VOLUME 101 fl (80.0-100.0); MEAN CORPUSCULAR HEMOGLOBIN 34 pg (27.0-31.0); MEAN CORPUSCULAR HGB CONC 34 g/dl (33.0-37.0); MEAN PLATELET VOLUME 8.8 fl (7.4-10.4); MONO # 0.8 (0.1-0.6); MONO % 5.9 % (1.7-9.3); PLATELET COUNT 291 K/mm3 (130-400); RED BLOOD COUNT 4.26 M/mm3 (4.10-5.30)
[2018-08-08 19:40] LABS: ALANINE AMINOTRANSFERASE 53 U/L (9-52); ALKALINE PHOSPHATASE 97 U/L (50-136); ANION GAP 7 mmol/L (7-16); AST,SGOT 33 U/L (15-37); BILIRUBIN,TOTAL 0.6 mg/dL (0.0-1.0); BLOOD UREA NITROGEN 15 mg/dL (7-17); C-REACTIVE PROTEIN < 0.5 mg/dL (0.0-0.9); CALCIUM 9.5 mg/dL (8.4-10.2); CARBON DIOXIDE 26 mmol/L (22-30); CHLORIDE 105 mmol/L (98-107); CREATININE, serum 1.14 (0.52-1.25); GLUCOSE 100 mg/dL (74-106); LIPASE 33 U/L (23-300); POTASSIUM 4.1 mmol/L (3.4-5.0); SODIUM 137 mmol/L (137-145); TOTAL PROTEIN 6.9 gm/dL (6.4-8.2)
[2018-08-08 20:27] LABS: COLLECTION METHOD CLEAN CATCH
[2018-08-08 20:35] LABS: MUCOUS Present /lpf; PH 6 (5-8); SQUAMOUS EPITHELIAL 0-2 /hpf; URINE APPEARANCE Clear; URINE BACTERIA None Seen /hpf; URINE BILIRUBIN Negative (NEGATIVE); URINE BLOOD Negative (NEGATIVE); URINE COLOR Yellow; URINE GLUCOSE Negative (NEGATIVE); URINE KETONE Negative (NEGATIVE); URINE LEUKOCYTE ESTERASE Negative (NEGATIVE); URINE NITRATE Negative (NEGATIVE); URINE PROTEIN(semi-quant) Negative (NEGATIVE); URINE RBC 0-2 /hpf; URINE UROBILINOGEN Negative (NEGATIVE)
[2018-08-08] MEDS ORDERED: PHENERGAN 25 TA25 MG PO (20:38)
[2018-08-08] MEDS ORDERED: PERCOCET 325 MG1 TA2 PO (20:38)
[2018-08-08 21:15] VITALS: BP 127/93; PULSE 68
== END 2018-08-08 21:15 | disposition home or self-care (01) ==
LOC: COL.ER 17:21
PROVIDERS: Emergency Medicine
DX: R10.31 Right lower quadrant pain (principal); R11.0 Nausea; J44.9 Chronic obstructive pulmonary disease, unspecified; G43.909 Migraine, unspecified, not intractable, without status migrainosus; Z90.710 Acquired absence of both cervix and uterus; Z98.890 Other specified postprocedural states; Z79.82 Long term (current) use of aspirin; Z90.49 Acquired absence of other specified parts of digestive tract; Z79.51 Long term (current) use of inhaled steroids
CPT/HCPCS: J1170; J2405; J2550; J7030; Q9967

== ENCOUNTER 2018-09-02 19:40 | Emergency (ER) | payer MEDICARE, MEDICAID ==
[2005-12-31 18:10] VITALS: BP 97/63
[~2018-09-02] VITALS: Ht 154.9 cm; Wt 77.3 kg
[~2018-09-02 19:40] MED LIST changes: +PHENERGAN 25 TA25 MG PO
[2018-09-02 19:49] VITALS: TEMP 97.5
[2018-09-02 21:37] LABS: HEMATOCRIT 45.7 % (37.0-47.0); HEMOGLOBIN 15.2 g/dl (12.5-16.0); MEAN CELL VOLUME 103 fl (80.0-100.0); MEAN CORPUSCULAR HEMOGLOBIN 34 pg (27.0-31.0); MEAN CORPUSCULAR HGB CONC 33 g/dl (33.0-37.0); MEAN PLATELET VOLUME 9.2 fl (7.4-10.4); PLATELET COUNT 239 K/mm3 (130-400); RED BLOOD COUNT 4.42 M/mm3 (4.10-5.30); REDCELL DISTRIBUTION WIDTH-CV 13.2 % (11.5-14.5)
[2018-09-02 22:57] VITALS: BP 121/97; PULSE 80
== END 2018-09-02 22:13 | disposition home or self-care (01) ==
LOC: COL.ER 19:40
PROVIDERS: Emergency Medicine
DX: G89.29 Other chronic pain (principal); R10.9 Unspecified abdominal pain; I25.10 Atherosclerotic heart disease of native coronary artery without angina pectoris; J44.9 Chronic obstructive pulmonary disease, unspecified; K21.9 Gastro-esophageal reflux disease without esophagitis; E78.5 Hyperlipidemia, unspecified; F31.9 Bipolar disorder, unspecified; F17.210 Nicotine dependence, cigarettes, uncomplicated; Z90.49 Acquired absence of other specified parts of digestive tract; Z79.82 Long term (current) use of aspirin; Z79.51 Long term (current) use of inhaled steroids
CPT/HCPCS: J2405

== ENCOUNTER 2018-09-04 12:26 | Emergency (ER) | payer MEDICARE, MEDICAID ==
[2005-12-31 18:10] VITALS: BP 97/63
[2018-09-04 12:30] VITALS: TEMP 97.3
[2018-09-04] MEDS ORDERED: NORCO 325 MG-51 TAB PO (13:29)
[2018-09-04 14:00] VITALS: BP 100/73; PULSE 62
== END 2018-09-04 14:16 | disposition home or self-care (01) ==
LOC: COL.ER 12:26
DX: S30.0XXA Contusion of lower back and pelvis, initial encounter (principal); Z79.82 Long term (current) use of aspirin; W01.0XXA Fall on same level from slipping, tripping and stumbling without subsequent striking against object, initial encounter
CPT/HCPCS: J1170

== ENCOUNTER 2018-09-13 15:00 | Emergency (ER) | payer MEDICARE, MEDICAID ==
[2005-12-31 18:10] VITALS: BP 97/63
[~2018-09-13] VITALS: Ht 154.9 cm; Wt 79.5 kg
[2018-09-13 15:09] VITALS: BP 131/63; PULSE 92; TEMP 97.4
== END 2018-09-13 15:45 | disposition left against medical advice (07) ==
LOC: COL.ER 15:00
DX: F31.9 Bipolar disorder, unspecified (principal)

== ENCOUNTER 2018-09-14 10:03 | Emergency (ER) | payer OTHER, MEDICARE, MEDICAID ==
[2005-12-31 18:10] VITALS: BP 97/63
[~2018-09-14] VITALS: Ht 154.9 cm; Wt 79.5 kg
[2018-09-14 11:30] VITALS: BP 100/72; PULSE 83; TEMP 98
== END 2018-09-14 11:31 | disposition home or self-care (01) ==
LOC: COL.ER 10:03
DX: S16.1XXA Strain of muscle, fascia and tendon at neck level, initial encounter (principal); S00.531A Contusion of lip, initial encounter; K21.9 Gastro-esophageal reflux disease without esophagitis; E78.5 Hyperlipidemia, unspecified; F31.9 Bipolar disorder, unspecified; F17.210 Nicotine dependence, cigarettes, uncomplicated; V47.0XXA Car driver injured in collision with fixed or stationary object in nontraffic accident, initial encounter; Y92.481 Parking lot as the place of occurrence of the external cause

== ENCOUNTER → 2018-09-20 | Outpatient (CLI) | payer MEDICARE, MEDICAID | LOC: COL.RAD 09:24 | DX: R15.9 Full incontinence of feces (principal); Z90.49 Acquired absence of other specified parts of digestive tract ==

== ENCOUNTER 2018-10-06 22:38 | Emergency (ER) | payer MEDICARE, MEDICAID ==
[2005-12-31 18:10] VITALS: BP 97/63
[~2018-10-06] VITALS: Ht 154.9 cm; Wt 77.3 kg
[2018-10-06 22:47] VITALS: BP 116/72; TEMP 98.8
[2018-10-07 00:15] VITALS: PULSE 74
== END 2018-10-07 00:15 | disposition home or self-care (01) ==
LOC: COL.ER 22:38
DX: J95.830 Postprocedural hemorrhage of a respiratory system organ or structure following a respiratory system procedure (principal); I25.10 Atherosclerotic heart disease of native coronary artery without angina pectoris; J44.9 Chronic obstructive pulmonary disease, unspecified; F31.9 Bipolar disorder, unspecified; F17.210 Nicotine dependence, cigarettes, uncomplicated; Z79.82 Long term (current) use of aspirin; Z79.51 Long term (current) use of inhaled steroids

== ENCOUNTER 2018-10-27 16:20 | Emergency (ER) | payer MEDICARE, MEDICAID ==
[2005-12-31 18:10] VITALS: BP 97/63
[~2018-10-27] VITALS: Ht 154.9 cm; Wt 72.7 kg
[2018-10-27 16:22] VITALS: TEMP 97.9
[2018-10-27] MEDS ORDERED: VALIUM 2MG T2 MG/TAB PO (16:25)
[2018-10-27 17:16] VITALS: BP 101/69; PULSE 92
== END 2018-10-27 17:16 | disposition home or self-care (01) ==
LOC: COL.ER 16:20
DX: S70.01XA Contusion of right hip, initial encounter (principal); S70.11XA Contusion of right thigh, initial encounter; J44.9 Chronic obstructive pulmonary disease, unspecified; I25.10 Atherosclerotic heart disease of native coronary artery without angina pectoris; K21.9 Gastro-esophageal reflux disease without esophagitis; E78.5 Hyperlipidemia, unspecified; F31.9 Bipolar disorder, unspecified; Z79.82 Long term (current) use of aspirin; F17.210 Nicotine dependence, cigarettes, uncomplicated; Z95.5 Presence of coronary angioplasty implant and graft; W18.30XA Fall on same level, unspecified, initial encounter; Y92.524 Gas station as the place of occurrence of the external cause

== ENCOUNTER 2019-01-01 15:17 | Emergency (ER) | payer MEDICARE, MEDICAID ==
[2005-12-31 18:10] VITALS: BP 97/63
[~2019-01-01] VITALS: Ht 154.9 cm; Wt 72.7 kg
[~2019-01-01 15:17] MED LIST changes: -D3-5050000 IU; +EMGALITY120 MG/1 M SQ; +ENABLEX 7.5MG7.5 MG PO; -ENABLEX15 MG PO; +VALIUM 2MG T2 MG/TAB PO
[2019-01-01 15:19] VITALS: TEMP 98.2
[2019-01-01 15:30] LABS: BASO % 0.3 % (0.0-2.0); EOS # 0.2 (0.0-0.7); EOS % 3.6 % (0-4.0); HEMATOCRIT 42.4 % (37.0-47.0); HEMOGLOBIN 14.1 g/dl (12.5-16.0); LYMPH # 1.8 (1.2-3.4); MEAN CELL VOLUME 101 fl (80.0-100.0); MEAN CORPUSCULAR HEMOGLOBIN 33 pg (27.0-31.0); MEAN CORPUSCULAR HGB CONC 33 g/dl (33.0-37.0); MEAN PLATELET VOLUME 8.7 fl (7.4-10.4); MONO # 0.4 (0.1-0.6); MONO % 6.8 % (1.7-9.3); PLATELET COUNT 274 K/mm3 (130-400); RED BLOOD COUNT 4.22 M/mm3 (4.10-5.30); REDCELL DISTRIBUTION WIDTH-CV 13.1 % (11.5-14.5)
[2019-01-01 15:37] LABS: INR 0.9 (0.8-3.0); PROTHROMBIN TIME 10.9 SECONDS (9.7-12.8)
[2019-01-01 15:41] LABS: ALANINE AMINOTRANSFERASE 13 U/L (9-52); ALBUMIN 3.9 gm/dL (3.5-5.0); ALKALINE PHOSPHATASE 103 U/L (50-136); ANION GAP 8 mmol/L (7-16); AST,SGOT 24 U/L (15-37); BILIRUBIN,TOTAL 0.4 mg/dL (0.0-1.0); BLOOD UREA NITROGEN 11 mg/dL (7-17); CALCIUM 9.6 mg/dL (8.4-10.2); CARBON DIOXIDE 26 mmol/L (22-30); CHLORIDE 103 mmol/L (98-107); CREATININE, serum 1.04 (0.52-1.25); GLUCOSE 85 mg/dL (74-106); LIPASE 27 U/L (23-300); POTASSIUM 4.7 mmol/L (3.4-5.0); SODIUM 138 mmol/L (137-145); TOTAL PROTEIN 6.7 gm/dL (6.4-8.2)
[2019-01-01 16:07] LABS: TROPONIN-I < 0.012 ng/mL (0.000-0.035)
[2019-01-01 20:03] VITALS: BP 108/62; PULSE 76
== END 2019-01-01 20:03 | disposition home or self-care (01) ==
LOC: COL.ER 15:17
PROVIDERS: Emergency Medicine
DX: J40 Bronchitis, not specified as acute or chronic (principal); R07.89 Other chest pain; E78.5 Hyperlipidemia, unspecified; I25.10 Atherosclerotic heart disease of native coronary artery without angina pectoris; F17.210 Nicotine dependence, cigarettes, uncomplicated; Z95.5 Presence of coronary angioplasty implant and graft
CPT/HCPCS: J0780; J2270; J7030

== ENCOUNTER 2019-01-04 17:34 | Emergency (ER) | payer MEDICARE, MEDICAID ==
[2005-12-31 18:10] VITALS: BP 97/63
[~2019-01-04] VITALS: Ht 154.9 cm; Wt 74.1 kg
[2019-01-04 18:15] LABS: BASO % 0.3 % (0.0-2.0); EOS # 0.1 (0.0-0.7); EOS % 1.2 % (0-4.0); GRAN # 6.6 (1.4-6.5); GRAN % 76.6 % (42.2-75.2); HEMATOCRIT 44.8 % (37.0-47.0); HEMOGLOBIN 14.8 g/dl (12.5-16.0); LYMPH # 1.5 (1.2-3.4); LYMPH % 16.8 % (20.0-51.0); MEAN CELL VOLUME 100 fl (80.0-100.0); MEAN CORPUSCULAR HEMOGLOBIN 33 pg (27.0-31.0); MEAN CORPUSCULAR HGB CONC 33 g/dl (33.0-37.0); MEAN PLATELET VOLUME 8.6 fl (7.4-10.4); MONO # 0.4 (0.1-0.6); MONO % 4.8 % (1.7-9.3); PLATELET COUNT 271 K/mm3 (130-400); RED BLOOD COUNT 4.47 M/mm3 (4.10-5.30); REDCELL DISTRIBUTION WIDTH-CV 13.2 % (11.5-14.5)
[2019-01-04 18:26] LABS: ALANINE AMINOTRANSFERASE 11 U/L (9-52); ALBUMIN 4.2 gm/dL (3.5-5.0); ALKALINE PHOSPHATASE 107 U/L (50-136); ANION GAP 9 mmol/L (7-16); AST,SGOT 25 U/L (15-37); BILIRUBIN,TOTAL 0.6 mg/dL (0.0-1.0); BLOOD UREA NITROGEN 8 mg/dL (7-17); CALCIUM 9.6 mg/dL (8.4-10.2); CARBON DIOXIDE 23 mmol/L (22-30); CHLORIDE 104 mmol/L (98-107); CREATININE, serum 1.04 (0.52-1.25); GLUCOSE 101 mg/dL (74-106); POTASSIUM 3.9 mmol/L (3.4-5.0); SODIUM 136 mmol/L (137-145); TOTAL PROTEIN 7.3 gm/dL (6.4-8.2)
[2019-01-04 18:28] LABS: C-REACTIVE PROTEIN < 0.5 mg/dL (0.0-0.9)
[2019-01-04 20:33] VITALS: BP 102/60; PULSE 79; TEMP 98.3
== END 2019-01-04 20:34 | disposition home or self-care (01) ==
LOC: COL.ER 17:34
PROVIDERS: Emergency Medicine
DX: G40.89 Other seizures (principal); I25.10 Atherosclerotic heart disease of native coronary artery without angina pectoris; F17.210 Nicotine dependence, cigarettes, uncomplicated; E78.00 Pure hypercholesterolemia, unspecified; Z79.82 Long term (current) use of aspirin
CPT/HCPCS: J2060; J7030

== ENCOUNTER 2019-02-10 13:12 | Emergency (ER) | payer MEDICARE, MEDICAID ==
[2005-12-31 18:10] VITALS: BP 97/63
[~2019-02-10] VITALS: Ht 154.9 cm; Wt 75.0 kg
[2019-02-10 13:26] VITALS: BP 117/67; TEMP 98.8
[2019-02-10 15:58] VITALS: PULSE 78
== END 2019-02-10 16:01 | disposition home or self-care (01) ==
LOC: COL.ER 13:12
DX: G43.909 Migraine, unspecified, not intractable, without status migrainosus (principal); G40.909 Epilepsy, unspecified, not intractable, without status epilepticus; F32.9 Major depressive disorder, single episode, unspecified; F17.210 Nicotine dependence, cigarettes, uncomplicated; Z90.89 Acquired absence of other organs; Z90.49 Acquired absence of other specified parts of digestive tract
CPT/HCPCS: J0780; J1200; J1885; J2405; J7030

== ENCOUNTER 2019-02-17 10:35 | Emergency (ER) | payer MEDICARE, MEDICAID ==
[2005-12-31 18:10] VITALS: BP 97/63
[~2019-02-17] VITALS: Ht 154.9 cm; Wt 75.0 kg
[2019-02-17 10:40] VITALS: BP 98/64; PULSE 93; TEMP 97.6
== END 2019-02-17 14:17 | disposition home or self-care (01) ==
LOC: COL.ER 10:35
DX: G43.909 Migraine, unspecified, not intractable, without status migrainosus (principal); F31.9 Bipolar disorder, unspecified; F17.210 Nicotine dependence, cigarettes, uncomplicated; Z79.82 Long term (current) use of aspirin
CPT/HCPCS: J1170; J1200; J1885; J2550; J2765; J7030

== ENCOUNTER 2019-02-22 15:08 | Emergency (ER) | payer MEDICARE, MEDICAID ==
[2005-12-31 18:10] VITALS: BP 97/63
[~2019-02-22] VITALS: Ht 154.9 cm; Wt 72.7 kg
[2019-02-22 18:25] VITALS: BP 134/82; PULSE 62; TEMP 98.2
== END 2019-02-22 18:25 | disposition home or self-care (01) ==
LOC: COL.ER 15:08
DX: G43.909 Migraine, unspecified, not intractable, without status migrainosus (principal); I25.10 Atherosclerotic heart disease of native coronary artery without angina pectoris; G40.909 Epilepsy, unspecified, not intractable, without status epilepticus; F17.210 Nicotine dependence, cigarettes, uncomplicated; F31.9 Bipolar disorder, unspecified; Z90.89 Acquired absence of other organs; Z98.51 Tubal ligation status; Z23 Encounter for immunization; Z90.710 Acquired absence of both cervix and uterus
CPT/HCPCS: J1170; J1200; J1630; J2405; J3030; J7030

== ENCOUNTER 2019-03-17 15:00 | Emergency (ER) | payer MEDICARE, MEDICAID ==
[2005-12-31 18:10] VITALS: BP 97/63
[~2019-03-17] VITALS: Ht 154.9 cm; Wt 72.7 kg
[2019-03-17 15:23] VITALS: BP 98/71; TEMP 97.9
[2019-03-17 17:24] VITALS: PULSE 63
== END 2019-03-17 17:21 | disposition home or self-care (01) ==
LOC: COL.ER 15:00
DX: G43.909 Migraine, unspecified, not intractable, without status migrainosus (principal); I25.10 Atherosclerotic heart disease of native coronary artery without angina pectoris; G40.909 Epilepsy, unspecified, not intractable, without status epilepticus; F17.210 Nicotine dependence, cigarettes, uncomplicated; Z79.82 Long term (current) use of aspirin
CPT/HCPCS: J1170; J1200; J1630; J2405; J7030

== ENCOUNTER 2019-04-08 09:34 | Emergency (ER) | payer MEDICARE, MEDICAID ==
[2005-12-31 18:10] VITALS: BP 97/63
[~2019-04-08] VITALS: Ht 154.9 cm; Wt 68.2 kg
[2019-04-08 09:38] VITALS: BP 98/65; TEMP 98.4
[2019-04-08 10:11] LABS: BASO % 0.4 % (0.0-2.0); EOS # 0.5 (0.0-0.7); EOS % 5.1 % (0-4.0); GRAN # 6.6 (1.4-6.5); GRAN % 71.8 % (42.2-75.2); HEMATOCRIT 44.9 % (37.0-47.0); HEMOGLOBIN 14.5 g/dl (12.5-16.0); LYMPH # 1.6 (1.2-3.4); LYMPH % 17.4 % (20.0-51.0); MEAN CELL VOLUME 104 fl (80.0-100.0); MEAN CORPUSCULAR HEMOGLOBIN 34 pg (27.0-31.0); MEAN CORPUSCULAR HGB CONC 32 g/dl (33.0-37.0); MONO # 0.5 (0.1-0.6); MONO % 5.1 % (1.7-9.3); PLATELET COUNT 281 K/mm3 (130-400); REDCELL DISTRIBUTION WIDTH-CV 13.2 % (11.5-14.5)
[2019-04-08 10:22] LABS: CALCIUM 9.8 mg/dL (8.4-10.2); CREATININE, serum 1.2 (0.52-1.25); POTASSIUM 4.3 mmol/L (3.4-5.0)
[2019-04-08 11:02] VITALS: PULSE 74
== END 2019-04-08 11:04 | disposition home or self-care (01) ==
LOC: COL.ER 09:34
PROVIDERS: Emergency Medicine
DX: G40.909 Epilepsy, unspecified, not intractable, without status epilepticus (principal); E78.5 Hyperlipidemia, unspecified; I25.10 Atherosclerotic heart disease of native coronary artery without angina pectoris; F31.9 Bipolar disorder, unspecified; F17.210 Nicotine dependence, cigarettes, uncomplicated; Z79.82 Long term (current) use of aspirin
CPT/HCPCS: J7030

== ENCOUNTER 2019-04-17 19:26 | Emergency (ER) | payer MEDICARE, MEDICAID ==
[2019-04-18] MEDS ORDERED: MINIPRESS 5M5 MG/CAP PO (11:37)
[2019-04-18] MEDS ORDERED: NEXIUM 40MG40 MG PO (11:38)
[2019-04-18] MEDS ORDERED: ZETIA 10MG TAB10 MG PO (11:41)
[2019-04-18] MEDS ORDERED: CELEBREX 200MG200 MG PO (11:42)
[2019-04-18] MEDS ORDERED: BRILINTA90 MG PO (11:43)
[2019-04-18] MEDS ORDERED: LITHIUM 30300 MG/CAP PO (11:44)
[2019-04-18] MEDS ORDERED: TOPAMAX 100MG100 M1 PO (11:44)
[2019-04-18] MEDS ORDERED: OXAYDO5 MG PO (11:47)
[2019-04-18] MEDS ORDERED: CARAFATE 1GM1 G PO (12:45)
== END 2019-04-17 20:00 | disposition left against medical advice (07) ==
LOC: COL.ER 19:26
DX: Z72.89 Other problems related to lifestyle (principal)

== ENCOUNTER 2019-04-18 08:47 | Emergency (ER) | payer MEDICARE, MEDICAID ==
[2005-12-31 18:10] VITALS: BP 97/63
[~2019-04-18] VITALS: Ht 154.9 cm; Wt 68.7 kg
[2019-04-18 09:06] VITALS: TEMP 97.7
[2019-04-18 11:23] LABS: COLLECTION METHOD CLEAN CATCH
[2019-04-18 11:27] LABS: BASO % 0.3 % (0.0-2.0); EOS # 0.4 (0.0-0.7); EOS % 3.1 % (0-4.0); GRAN % 78.5 % (42.2-75.2); HEMATOCRIT 49.1 % (37.0-47.0); HEMOGLOBIN 16.2 g/dl (12.5-16.0); LYMPH # 1.6 (1.2-3.4); LYMPH % 11.5 % (20.0-51.0); MEAN CELL VOLUME 102 fl (80.0-100.0); MEAN CORPUSCULAR HEMOGLOBIN 34 pg (27.0-31.0); MEAN CORPUSCULAR HGB CONC 33 g/dl (33.0-37.0); MONO # 0.9 (0.1-0.6); MONO % 6.2 % (1.7-9.3); PLATELET COUNT 345 K/mm3 (130-400); RED BLOOD COUNT 4.81 M/mm3 (4.10-5.30); REDCELL DISTRIBUTION WIDTH-CV 12.8 % (11.5-14.5)
[2019-04-18 11:37] LABS: MUCOUS Present /lpf; PH 6 (5-8); URINE APPEARANCE Clear; URINE BACTERIA Rare /hpf; URINE BILIRUBIN Negative (NEGATIVE); URINE BLOOD Negative (NEGATIVE); URINE COLOR Yellow; URINE GLUCOSE Negative (NEGATIVE); URINE KETONE Negative (NEGATIVE); URINE LEUKOCYTE ESTERASE Negative (NEGATIVE); URINE NITRATE Negative (NEGATIVE); URINE PROTEIN(semi-quant) Negative (NEGATIVE); URINE RBC 0-2 /hpf; URINE UROBILINOGEN Negative (NEGATIVE)
[2019-04-18] MEDS ORDERED: MINIPRESS 5M5 MG/CAP PO (11:37)
[2019-04-18] MEDS ORDERED: NEXIUM 40MG40 MG PO (11:38)
[2019-04-18 11:40] LABS: ALANINE AMINOTRANSFERASE 13 U/L (9-52); ALBUMIN 4.5 gm/dL (3.5-5.0); ALKALINE PHOSPHATASE 143 U/L (50-136); ANION GAP 11 mmol/L (7-16); AST,SGOT 21 U/L (15-37); BILIRUBIN,TOTAL 0.5 mg/dL (0.0-1.0); BLOOD UREA NITROGEN 4 mg/dL (7-17); CALCIUM 9.9 mg/dL (8.4-10.2); CARBON DIOXIDE 25 mmol/L (22-30); CHLORIDE 102 mmol/L (98-107); GLUCOSE 101 mg/dL (74-106); SODIUM 138 mmol/L (137-145); TOTAL PROTEIN 7.9 gm/dL (6.4-8.2)
[2019-04-18] MEDS ORDERED: ZETIA 10MG TAB10 MG PO (11:41)
[2019-04-18] MEDS ORDERED: CELEBREX 200MG200 MG PO (11:42)
[2019-04-18] MEDS ORDERED: BRILINTA90 MG PO (11:43)
[2019-04-18 11:44] LABS: C-REACTIVE PROTEIN < 0.5 mg/dL (0.0-0.9)
[2019-04-18] MEDS ORDERED: TOPAMAX 100MG100 M1 PO (11:44)
[2019-04-18] MEDS ORDERED: LITHIUM 30300 MG/CAP PO (11:44)
[2019-04-18] MEDS ORDERED: OXAYDO5 MG PO (11:47)
[2019-04-18] MEDS ORDERED: CARAFATE 1GM1 G PO (12:45)
[2019-04-18 13:24] VITALS: BP 126/78; PULSE 64
== END 2019-04-18 13:30 | disposition home or self-care (01) ==
LOC: COL.ER 08:47
PROVIDERS: Physician Assistant
DX: R10.13 Epigastric pain (principal); I25.10 Atherosclerotic heart disease of native coronary artery without angina pectoris; J44.9 Chronic obstructive pulmonary disease, unspecified; G40.909 Epilepsy, unspecified, not intractable, without status epilepticus; F32.9 Major depressive disorder, single episode, unspecified; F17.210 Nicotine dependence, cigarettes, uncomplicated; Z95.5 Presence of coronary angioplasty implant and graft; Z90.710 Acquired absence of both cervix and uterus; Z90.49 Acquired absence of other specified parts of digestive tract; Z98.890 Other specified postprocedural states; Z88.0 Allergy status to penicillin; Z88.1 Allergy status to other antibiotic agents
CPT/HCPCS: C9113; J2405; J7030

== ENCOUNTER 2019-05-08 08:23 | Emergency (ER) | payer MEDICARE, MEDICAID ==
[2005-12-31 18:10] VITALS: BP 97/63
[~2019-05-08] VITALS: Ht 154.9 cm; Wt 65.9 kg
[~2019-05-08 08:23] MED LIST changes: +CARAFATE 1GM1 G PO; +OXAYDO5 MG PO; +TOPAMAX 100MG100 M1 PO
[2019-05-08 08:27] VITALS: TEMP 97.6
[2019-05-08 09:32] LABS: BASO % 0.3 % (0.0-2.0); EOS # 0.4 (0.0-0.7); EOS % 3.8 % (0-4.0); GRAN # 7.4 (1.4-6.5); GRAN % 69.5 % (42.2-75.2); HEMOGLOBIN 13.5 g/dl (12.5-16.0); LYMPH # 2.2 (1.2-3.4); LYMPH % 20.3 % (20.0-51.0); MEAN CELL VOLUME 105 fl (80.0-100.0); MEAN CORPUSCULAR HEMOGLOBIN 34 pg (27.0-31.0); MEAN CORPUSCULAR HGB CONC 32 g/dl (33.0-37.0); MEAN PLATELET VOLUME 9.4 fl (7.4-10.4); MONO # 0.6 (0.1-0.6); MONO % 5.8 % (1.7-9.3); PLATELET COUNT 329 K/mm3 (130-400); REDCELL DISTRIBUTION WIDTH-CV 13.2 % (11.5-14.5)
[2019-05-08 09:43] LABS: ALANINE AMINOTRANSFERASE 12 U/L (9-52); ALBUMIN 3.5 gm/dL (3.5-5.0); ALKALINE PHOSPHATASE 98 U/L (50-136); ANION GAP 7 mmol/L (7-16); AST,SGOT 20 U/L (15-37); BILIRUBIN,TOTAL 0.4 mg/dL (0.0-1.0); BLOOD UREA NITROGEN 4 mg/dL (7-17); C-REACTIVE PROTEIN < 0.5 mg/dL (0.0-0.9); CALCIUM 8.9 mg/dL (8.4-10.2); CARBON DIOXIDE 22 mmol/L (22-30); CHLORIDE 112 mmol/L (98-107); CREATININE, serum 0.84 (0.52-1.25); GLUCOSE 78 mg/dL (74-106); POTASSIUM 4.1 mmol/L (3.4-5.0); SODIUM 140 mmol/L (137-145); TOTAL PROTEIN 6.4 gm/dL (6.4-8.2)
[2019-05-08 09:43] LABS: COLLECTION METHOD CLEAN CATCH
[2019-05-08 09:51] LABS: PH 6 (5-8); URINE APPEARANCE Cloudy; URINE BACTERIA Rare /hpf; URINE BILIRUBIN Negative (NEGATIVE); URINE BLOOD 3+ (NEGATIVE); URINE COLOR Yellow; URINE GLUCOSE Negative (NEGATIVE); URINE KETONE Negative (NEGATIVE); URINE LEUKOCYTE ESTERASE Negative (NEGATIVE); URINE NITRATE Negative (NEGATIVE); URINE PROTEIN(semi-quant) Negative (NEGATIVE); URINE RBC 20-50 /hpf; URINE UROBILINOGEN Negative (NEGATIVE)
[2019-05-08] MEDS ORDERED: CEPHALEXIN500 M1 PO (10:42)
[2019-05-08 10:49] VITALS: BP 105/60; PULSE 87
== END 2019-05-08 10:50 | disposition home or self-care (01) ==
LOC: COL.ER 08:23
PROVIDERS: Physician Assistant
DX: N39.0 Urinary tract infection, site not specified (principal); R07.9 Chest pain, unspecified; M54.9 Dorsalgia, unspecified; G89.29 Other chronic pain; J44.9 Chronic obstructive pulmonary disease, unspecified; F32.9 Major depressive disorder, single episode, unspecified; F17.210 Nicotine dependence, cigarettes, uncomplicated; Z79.82 Long term (current) use of aspirin; Z79.891 Long term (current) use of opiate analgesic; Z90.49 Acquired absence of other specified parts of digestive tract; Z90.710 Acquired absence of both cervix and uterus
CPT/HCPCS: J1885; J2405; J7030

== ENCOUNTER 2019-05-08 14:43 | Emergency (ER) | payer MEDICARE, MEDICAID ==
[2005-12-31 18:10] VITALS: BP 97/63
[~2019-05-08] VITALS: Ht 154.9 cm; Wt 65.9 kg
[~2019-05-08 14:43] MED LIST changes: +CEPHALEXIN500 M1 PO
[2019-05-08 14:47] VITALS: BP 107/69; TEMP 98.1
[2019-05-08 16:31] VITALS: PULSE 90
== END 2019-05-08 16:31 | disposition home or self-care (01) ==
LOC: COL.ER 14:43
DX: N39.0 Urinary tract infection, site not specified (principal); J44.9 Chronic obstructive pulmonary disease, unspecified; F31.9 Bipolar disorder, unspecified; E78.5 Hyperlipidemia, unspecified; K21.9 Gastro-esophageal reflux disease without esophagitis; F17.210 Nicotine dependence, cigarettes, uncomplicated; Z95.9 Presence of cardiac and vascular implant and graft, unspecified; Z79.82 Long term (current) use of aspirin
CPT/HCPCS: J1885; Q9967

== ENCOUNTER 2019-05-25 14:13 | Emergency (ER) | payer MEDICARE, MEDICAID ==
[2005-12-31 18:10] VITALS: BP 97/63
[~2019-05-25] VITALS: Ht 154.9 cm; Wt 65.9 kg
[2019-05-25 14:20] VITALS: TEMP 97.6
[2019-05-25 15:13] LABS: BASO % 0.4 % (0.0-2.0); EOS # 0.2 (0.0-0.7); EOS % 2.5 % (0-4.0); GRAN # 4.6 (1.4-6.5); GRAN % 69.3 % (42.2-75.2); HEMATOCRIT 43.9 % (37.0-47.0); LYMPH # 1.4 (1.2-3.4); LYMPH % 20.4 % (20.0-51.0); MEAN CELL VOLUME 104 fl (80.0-100.0); MEAN CORPUSCULAR HEMOGLOBIN 33 pg (27.0-31.0); MEAN CORPUSCULAR HGB CONC 32 g/dl (33.0-37.0); MEAN PLATELET VOLUME 8.6 fl (7.4-10.4); MONO # 0.5 (0.1-0.6); MONO % 7.3 % (1.7-9.3); PLATELET COUNT 276 K/mm3 (130-400); RED BLOOD COUNT 4.23 M/mm3 (4.10-5.30); REDCELL DISTRIBUTION WIDTH-CV 12.8 % (11.5-14.5)
[2019-05-25 15:22] LABS: ALBUMIN 3.5 gm/dL (3.5-5.0); BILIRUBIN,TOTAL 0.5 mg/dL (0.0-1.0); CALCIUM 9.3 mg/dL (8.4-10.2); CREATININE, serum 1.12 (0.52-1.25); POTASSIUM 3.9 mmol/L (3.4-5.0); TOTAL PROTEIN 6.1 gm/dL (6.4-8.2)
[2019-05-25] MEDS ORDERED: PHENERGAN 25 TA25 MG PO (15:46)
[2019-05-25 16:25] VITALS: BP 92/59; PULSE 60
== END 2019-05-25 16:25 | disposition home or self-care (01) ==
LOC: COL.ER 14:13
PROVIDERS: Emergency Medicine
DX: R10.11 Right upper quadrant pain (principal); J44.9 Chronic obstructive pulmonary disease, unspecified; E78.5 Hyperlipidemia, unspecified; I25.10 Atherosclerotic heart disease of native coronary artery without angina pectoris; K21.9 Gastro-esophageal reflux disease without esophagitis; F31.9 Bipolar disorder, unspecified; F17.210 Nicotine dependence, cigarettes, uncomplicated; Z90.710 Acquired absence of both cervix and uterus; Z90.89 Acquired absence of other organs; Z98.890 Other specified postprocedural states; Z79.82 Long term (current) use of aspirin
CPT/HCPCS: J1885; J2550

== ENCOUNTER 2019-06-10 16:50 | Emergency (ER) | payer MEDICARE, MEDICAID ==
[2005-12-31 18:10] VITALS: BP 97/63
[~2019-06-10] VITALS: Ht 154.9 cm; Wt 63.6 kg
[2019-06-10 16:59] VITALS: TEMP 97.9
[2019-06-10] MEDS ORDERED: ALBUTEROL SULFAT3 M3 IH (17:12)
[2019-06-10] MEDS ORDERED: GEODON80 MG PO (17:27)
[2019-06-10 17:40] LABS: BASO % 0.4 % (0.0-2.0); EOS # 0.3 (0.0-0.7); EOS % 2.8 % (0-4.0); GRAN # 6.9 (1.4-6.5); GRAN % 67.7 % (42.2-75.2); HEMATOCRIT 42.6 % (37.0-47.0); HEMOGLOBIN 13.8 g/dl (12.5-16.0); LYMPH # 2.2 (1.2-3.4); LYMPH % 22.1 % (20.0-51.0); MEAN CELL VOLUME 102 fl (80.0-100.0); MEAN CORPUSCULAR HEMOGLOBIN 33 pg (27.0-31.0); MEAN CORPUSCULAR HGB CONC 32 g/dl (33.0-37.0); MEAN PLATELET VOLUME 9.2 fl (7.4-10.4); MONO # 0.7 (0.1-0.6); MONO % 6.8 % (1.7-9.3); PLATELET COUNT 305 K/mm3 (130-400); RED BLOOD COUNT 4.18 M/mm3 (4.10-5.30); REDCELL DISTRIBUTION WIDTH-CV 12.8 % (11.5-14.5)
[2019-06-10 17:51] LABS: ALANINE AMINOTRANSFERASE 27 U/L (9-52); ALKALINE PHOSPHATASE 98 U/L (50-136); ANION GAP 9 mmol/L (7-16); AST,SGOT 36 U/L (15-37); BILIRUBIN,TOTAL 0.5 mg/dL (0.0-1.0); BLOOD UREA NITROGEN 8 mg/dL (7-17); CALCIUM 9.8 mg/dL (8.4-10.2); CARBON DIOXIDE 21 mmol/L (22-30); CHLORIDE 109 mmol/L (98-107); CREATININE, serum 1.03 (0.52-1.25); GLUCOSE 109 mg/dL (74-106); LIPASE 110 U/L (23-300); POTASSIUM 3.8 mmol/L (3.4-5.0); SODIUM 139 mmol/L (137-145); TOTAL PROTEIN 6.7 gm/dL (6.4-8.2)
[2019-06-10 18:11] LABS: C-REACTIVE PROTEIN < 0.5 mg/dL (0.0-0.9); TROPONIN-I < 0.012 ng/mL (0.000-0.035)
[2019-06-10 19:05] LABS: COLLECTION METHOD CLEAN CATCH
[2019-06-10 19:12] LABS: PH 7 (5-8); URINE APPEARANCE Hazy; URINE BACTERIA None Seen /hpf; URINE BILIRUBIN Negative (NEGATIVE); URINE BLOOD Negative (NEGATIVE); URINE COLOR Straw; URINE GLUCOSE Negative (NEGATIVE); URINE KETONE Negative (NEGATIVE); URINE LEUKOCYTE ESTERASE Negative (NEGATIVE); URINE NITRATE Negative (NEGATIVE); URINE PROTEIN(semi-quant) Negative (NEGATIVE); URINE RBC 0-2 /hpf; URINE UROBILINOGEN Negative (NEGATIVE)
[2019-06-10 19:20] VITALS: BP 102/71; PULSE 72
== END 2019-06-10 19:30 | disposition home or self-care (01) ==
LOC: COL.ER 16:50
PROVIDERS: Emergency Medicine
DX: R10.11 Right upper quadrant pain (principal); R10.31 Right lower quadrant pain; I25.10 Atherosclerotic heart disease of native coronary artery without angina pectoris; E78.5 Hyperlipidemia, unspecified; F17.210 Nicotine dependence, cigarettes, uncomplicated; Z95.5 Presence of coronary angioplasty implant and graft; Z79.82 Long term (current) use of aspirin
CPT/HCPCS: J2405; J3010; J7030

== ENCOUNTER 2019-06-30 18:44 | Emergency (ER) | payer MEDICARE, MEDICAID ==
[2005-12-31 18:10] VITALS: BP 97/63
[~2019-06-30] VITALS: Ht 154.9 cm; Wt 57.6 kg
[~2019-06-30 18:44] MED LIST changes: +ALBUTEROL SULFAT3 M3 IH
[2019-06-30 18:55] VITALS: BP 111/72; PULSE 89; TEMP 97.4
[2019-06-30 19:52] LABS: BASO % 0.3 % (0.0-2.0); EOS # 0.3 (0.0-0.7); EOS % 2.4 % (0-4.0); GRAN # 8.5 (1.4-6.5); GRAN % 75.7 % (42.2-75.2); HEMATOCRIT 42.4 % (37.0-47.0); LYMPH # 1.6 (1.2-3.4); LYMPH % 14.3 % (20.0-51.0); MEAN CELL VOLUME 100 fl (80.0-100.0); MEAN CORPUSCULAR HEMOGLOBIN 33 pg (27.0-31.0); MEAN CORPUSCULAR HGB CONC 33 g/dl (33.0-37.0); MEAN PLATELET VOLUME 9.5 fl (7.4-10.4); MONO # 0.8 (0.1-0.6); MONO % 6.9 % (1.7-9.3); PLATELET COUNT 266 K/mm3 (130-400); RED BLOOD COUNT 4.26 M/mm3 (4.10-5.30); REDCELL DISTRIBUTION WIDTH-CV 12.6 % (11.5-14.5)
[2019-06-30 20:01] LABS: ALANINE AMINOTRANSFERASE 18 U/L (9-52); ALBUMIN 3.8 gm/dL (3.5-5.0); ALKALINE PHOSPHATASE 158 U/L (50-136); ANION GAP 9 mmol/L (7-16); AST,SGOT 21 U/L (15-37); BILIRUBIN,TOTAL 0.5 mg/dL (0.0-1.0); BLOOD UREA NITROGEN 9 mg/dL (7-17); CALCIUM 9.9 mg/dL (8.4-10.2); CARBON DIOXIDE 22 mmol/L (22-30); CHLORIDE 104 mmol/L (98-107); CREATININE, serum 1.01 (0.52-1.25); GLUCOSE 89 mg/dL (74-106); LIPASE 166 U/L (23-300); POTASSIUM 3.9 mmol/L (3.4-5.0); SODIUM 134 mmol/L (137-145); TOTAL PROTEIN 6.6 gm/dL (6.4-8.2)
[2019-06-30 20:13] LABS: TROPONIN-I < 0.012 ng/mL (0.000-0.035)
[2019-06-30 20:25] LABS: COLLECTION METHOD CLEAN CATCH
[2019-06-30 20:39] LABS: MUCOUS Present /lpf; PH 6 (5-8); URINE APPEARANCE Hazy; URINE BACTERIA None Seen /hpf; URINE BILIRUBIN Negative (NEGATIVE); URINE BLOOD Negative (NEGATIVE); URINE COLOR Yellow; URINE GLUCOSE Negative (NEGATIVE); URINE KETONE 1+ (NEGATIVE); URINE LEUKOCYTE ESTERASE Trace (NEGATIVE); URINE NITRATE Negative (NEGATIVE); URINE PROTEIN(semi-quant) Negative (NEGATIVE); URINE UROBILINOGEN Negative (NEGATIVE); URINE WBC 0-2 /hpf
[2019-06-30] MEDS ORDERED: PHENERGAN 25 TA25 MG PO (22:09)
[2019-06-30] MEDS ORDERED: COMPAZINE 110 MG/TAB PO (22:26)
== END 2019-06-30 23:40 | disposition home or self-care (01) ==
LOC: COL.ER 18:44
PROVIDERS: Emergency Medicine
DX: R53.81 Other malaise (principal); R53.83 Other fatigue; R11.2 Nausea with vomiting, unspecified; G89.29 Other chronic pain; R10.9 Unspecified abdominal pain; J44.9 Chronic obstructive pulmonary disease, unspecified; I25.10 Atherosclerotic heart disease of native coronary artery without angina pectoris; K21.9 Gastro-esophageal reflux disease without esophagitis; F31.9 Bipolar disorder, unspecified; E78.5 Hyperlipidemia, unspecified; F17.210 Nicotine dependence, cigarettes, uncomplicated; Z90.89 Acquired absence of other organs; Z88.1 Allergy status to other antibiotic agents; Z79.82 Long term (current) use of aspirin
CPT/HCPCS: J1885; J2405; J7030

== ENCOUNTER 2019-07-09 18:00 | Emergency (ER) | payer MEDICARE, MEDICAID ==
[2005-12-31 18:10] VITALS: BP 97/63
[~2019-07-09] VITALS: Ht 154.9 cm; Wt 59.1 kg
[~2019-07-09 18:00] MED LIST changes: +COMPAZINE 110 MG/TAB PO
[2019-07-09 18:08] VITALS: TEMP 97.8
[2019-07-09 18:59] LABS: COLLECTION METHOD CLEAN CATCH
[2019-07-09 19:02] LABS: BASO % 0.3 % (0.0-2.0); EOS # 0.3 (0.0-0.7); EOS % 2.5 % (0-4.0); GRAN # 9.1 (1.4-6.5); GRAN % 74.5 % (42.2-75.2); HEMATOCRIT 40.9 % (37.0-47.0); HEMOGLOBIN 13.5 g/dl (12.5-16.0); LYMPH # 1.8 (1.2-3.4); MEAN CELL VOLUME 98 fl (80.0-100.0); MEAN CORPUSCULAR HEMOGLOBIN 33 pg (27.0-31.0); MEAN CORPUSCULAR HGB CONC 33 g/dl (33.0-37.0); MEAN PLATELET VOLUME 8.8 fl (7.4-10.4); MONO # 0.9 (0.1-0.6); MONO % 7.4 % (1.7-9.3); PLATELET COUNT 333 K/mm3 (130-400); RED BLOOD COUNT 4.16 M/mm3 (4.10-5.30); REDCELL DISTRIBUTION WIDTH-CV 13.1 % (11.5-14.5)
[2019-07-09 19:05] LABS: PH 7 (5-8); SQUAMOUS EPITHELIAL 0-2 /hpf; URINE APPEARANCE Clear; URINE BACTERIA None Seen /hpf; URINE BILIRUBIN Negative (NEGATIVE); URINE BLOOD Negative (NEGATIVE); URINE COLOR Yellow; URINE GLUCOSE Negative (NEGATIVE); URINE KETONE Negative (NEGATIVE); URINE LEUKOCYTE ESTERASE Negative (NEGATIVE); URINE NITRATE Negative (NEGATIVE); URINE PROTEIN(semi-quant) Negative (NEGATIVE); URINE RBC 0-2 /hpf; URINE UROBILINOGEN Negative (NEGATIVE); URINE WBC 0-2 /hpf
[2019-07-09 19:21] LABS: ALANINE AMINOTRANSFERASE 17 U/L (9-52); ALBUMIN 3.4 gm/dL (3.5-5.0); ALKALINE PHOSPHATASE 158 U/L (50-136); ANION GAP 8 mmol/L (7-16); AST,SGOT 32 U/L (15-37); BILIRUBIN,TOTAL 0.5 mg/dL (0.0-1.0); BLOOD UREA NITROGEN 8 mg/dL (7-17); CALCIUM 9.8 mg/dL (8.4-10.2); CARBON DIOXIDE 22 mmol/L (22-30); CHLORIDE 106 mmol/L (98-107); CREATININE, serum 0.99 (0.52-1.25); GLUCOSE 93 mg/dL (74-106); LIPASE 251 U/L (23-300); POTASSIUM 3.2 mmol/L (3.4-5.0); SODIUM 135 mmol/L (137-145); TOTAL PROTEIN 6.2 gm/dL (6.4-8.2)
[2019-07-09 19:22] LABS: C-REACTIVE PROTEIN < 0.5 mg/dL (0.0-0.9)
[2019-07-09 20:15] VITALS: BP 110/76
[2019-07-09 21:36] VITALS: PULSE 75
== END 2019-07-09 21:41 | disposition home or self-care (01) ==
LOC: COL.ER 18:00
PROVIDERS: Emergency Medicine
DX: R33.9 Retention of urine, unspecified (principal); R11.2 Nausea with vomiting, unspecified; I25.10 Atherosclerotic heart disease of native coronary artery without angina pectoris; J44.9 Chronic obstructive pulmonary disease, unspecified; K21.9 Gastro-esophageal reflux disease without esophagitis; E78.5 Hyperlipidemia, unspecified; F31.9 Bipolar disorder, unspecified; F17.210 Nicotine dependence, cigarettes, uncomplicated; Z79.82 Long term (current) use of aspirin; Z95.5 Presence of coronary angioplasty implant and graft
CPT/HCPCS: J2270; J7030; Q9967

== ENCOUNTER 2019-08-13 20:40 | Emergency (ER) | payer MEDICARE, MEDICAID ==
[2005-12-31 18:10] VITALS: BP 97/63
[~2019-08-13] VITALS: Ht 154.9 cm; Wt 54.5 kg
[~2019-08-13 20:40] MED LIST changes: +ASPIRIN 81M81 MG/TA2 PO
[2019-08-13 20:44] VITALS: BP 115/66; TEMP 98.3
[2019-08-13 21:51] VITALS: PULSE 99
== END 2019-08-13 21:51 | disposition home or self-care (01) ==
LOC: COL.ER 20:40
DX: N34.2 Other urethritis (principal); M54.9 Dorsalgia, unspecified; W10.9XXA Fall (on) (from) unspecified stairs and steps, initial encounter

== ENCOUNTER 2019-08-14 14:54 | Emergency (ER) | payer MEDICARE, MEDICAID ==
[2005-12-31 18:10] VITALS: BP 97/63
[~2019-08-14] VITALS: Ht 154.9 cm; Wt 54.5 kg
[2019-08-14 15:14] VITALS: TEMP 98.5
[2019-08-14 15:51] LABS: BASO % 0.3 % (0.0-2.0); EOS # 0.6 (0.0-0.7); EOS % 5.8 % (0-4.0); GRAN # 6.2 (1.4-6.5); HEMOGLOBIN 11.4 g/dl (12.5-16.0); LYMPH # 2.2 (1.2-3.4); LYMPH % 23.2 % (20.0-51.0); MEAN CELL VOLUME 105 fl (80.0-100.0); MEAN CORPUSCULAR HEMOGLOBIN 33 pg (27.0-31.0); MEAN CORPUSCULAR HGB CONC 32 g/dl (33.0-37.0); MEAN PLATELET VOLUME 8.8 fl (7.4-10.4); MONO # 0.6 (0.1-0.6); MONO % 6.3 % (1.7-9.3); PLATELET COUNT 304 K/mm3 (130-400); RED BLOOD COUNT 3.42 M/mm3 (4.10-5.30); REDCELL DISTRIBUTION WIDTH-CV 16.8 % (11.5-14.5)
[2019-08-14 15:59] LABS: HEMATOCRIT 35.8 % (37.0-47.0)
[2019-08-14 16:19] LABS: ALANINE AMINOTRANSFERASE 16 U/L (4-34); ALKALINE PHOSPHATASE 86 U/L (50-136); ANION GAP 2 mmol/L (7-16); AST,SGOT 21 U/L (15-37); BILIRUBIN,TOTAL 0.3 mg/dL (0.0-1.0); BLOOD UREA NITROGEN 14 mg/dL (7-17); CALCIUM 8.8 mg/dL (8.4-10.2); CARBON DIOXIDE 25 mmol/L (22-30); CHLORIDE 109 mmol/L (98-107); CREATININE, serum 0.93 (0.52-1.25); GLUCOSE 90 mg/dL (74-106); POTASSIUM 3.9 mmol/L (3.4-5.0); SODIUM 136 mmol/L (137-145); TOTAL PROTEIN 5.6 gm/dL (6.4-8.2)
[2019-08-14 16:33] LABS: PROLACTIN 47.1 ng/mL (3.0-18.6)
[2019-08-14 16:34] LABS: C-REACTIVE PROTEIN < 0.5 mg/dL (0.0-0.9)
[2019-08-14 17:40] LABS: CARBAMAZEPINE (TEGRETOL) < 3.0 ug/mL (4.0-12.0)
[2019-08-14 18:15] VITALS: BP 95/67; PULSE 75
== END 2019-08-14 18:15 | disposition home or self-care (01) ==
LOC: COL.ER 14:54
PROVIDERS: Physician Assistant
DX: S06.0X0A Concussion without loss of consciousness, initial encounter (principal); J44.9 Chronic obstructive pulmonary disease, unspecified; F31.9 Bipolar disorder, unspecified; F17.210 Nicotine dependence, cigarettes, uncomplicated; Z79.51 Long term (current) use of inhaled steroids; Z79.82 Long term (current) use of aspirin; Z86.69 Personal history of other diseases of the nervous system and sense organs; W19.XXXA Unspecified fall, initial encounter

== ENCOUNTER 2019-09-19 11:53 | Emergency (ER) | payer MEDICARE, MEDICAID ==
[2005-12-31 18:10] VITALS: BP 97/63
[~2019-09-19] VITALS: Ht 160 cm; Wt 63.6 kg
[2019-09-19 11:55] VITALS: TEMP 98.2
[2019-09-19] MEDS ORDERED: MAG-OX 400400 MG/TAB PO (12:13)
[2019-09-19] MEDS ORDERED: FERRO-TIME325 MG PO (12:14)
[2019-09-19 12:32] LABS: BASO % 0.5 % (0.0-2.0); EOS # 0.3 (0.0-0.7); EOS % 4.3 % (0-4.0); GRAN # 5.8 (1.4-6.5); GRAN % 72.1 % (42.2-75.2); HEMATOCRIT 40.3 % (37.0-47.0); HEMOGLOBIN 12.5 g/dl (12.5-16.0); LYMPH # 1.3 (1.2-3.4); LYMPH % 16.7 % (20.0-51.0); MEAN CELL VOLUME 111 fl (80.0-100.0); MEAN CORPUSCULAR HEMOGLOBIN 34 pg (27.0-31.0); MEAN CORPUSCULAR HGB CONC 31 g/dl (33.0-37.0); MEAN PLATELET VOLUME 8.8 fl (7.4-10.4); MONO # 0.5 (0.1-0.6); MONO % 6.1 % (1.7-9.3); PLATELET COUNT 307 K/mm3 (130-400); RED BLOOD COUNT 3.64 M/mm3 (4.10-5.30); REDCELL DISTRIBUTION WIDTH-CV 14.6 % (11.5-14.5)
[2019-09-19 12:35] LABS: ALANINE AMINOTRANSFERASE 15 U/L (4-34); ALBUMIN 2.9 gm/dL (3.5-5.0); ALKALINE PHOSPHATASE 87 U/L (50-136); ANION GAP 2 mmol/L (7-16); AST,SGOT 27 U/L (15-37); BILIRUBIN,TOTAL 0.4 mg/dL (0.0-1.0); BLOOD UREA NITROGEN 8 mg/dL (7-17); CALCIUM 8.9 mg/dL (8.4-10.2); CARBON DIOXIDE 23 mmol/L (22-30); CHLORIDE 113 mmol/L (98-107); CREATININE, serum 1.03 (0.52-1.25); GLUCOSE 87 mg/dL (74-106); POTASSIUM 4.3 mmol/L (3.4-5.0); SODIUM 138 mmol/L (137-145); TOTAL PROTEIN 5.6 gm/dL (6.4-8.2)
[2019-09-19 12:36] LABS: C-REACTIVE PROTEIN < 0.5 mg/dL (0.0-0.9)
[2019-09-19 13:19] LABS: COLLECTION METHOD CLEAN CATCH
[2019-09-19 13:39] LABS: PH 7 (5-8); URINE APPEARANCE Hazy; URINE BACTERIA None Seen /hpf; URINE BILIRUBIN Negative (NEGATIVE); URINE BLOOD Negative (NEGATIVE); URINE COLOR Yellow; URINE GLUCOSE Negative (NEGATIVE); URINE KETONE Negative (NEGATIVE); URINE LEUKOCYTE ESTERASE 1+ (NEGATIVE); URINE NITRATE Positive (NEGATIVE); URINE PROTEIN(semi-quant) Negative (NEGATIVE); URINE RBC 0-2 /hpf; URINE UROBILINOGEN Negative (NEGATIVE)
[2019-09-19 14:30] VITALS: BP 91/47; PULSE 74
== END 2019-09-19 14:50 | disposition home or self-care (01) ==
LOC: COL.ER 11:53
PROVIDERS: Nurse Practitioner
DX: R56.9 Unspecified convulsions (principal); F31.9 Bipolar disorder, unspecified; F17.210 Nicotine dependence, cigarettes, uncomplicated; Z98.51 Tubal ligation status; Z90.49 Acquired absence of other specified parts of digestive tract; Z95.5 Presence of coronary angioplasty implant and graft; Z79.82 Long term (current) use of aspirin
CPT/HCPCS: J7030

== ENCOUNTER → 2020-01-11 | Outpatient (CLI) | payer MEDICARE, MEDICAID ==
[~2020-01-11] MED LIST changes: +FERRO-TIME325 MG PO
== END ==
LOC: COL.RAD 13:24
DX: R31.21 Asymptomatic microscopic hematuria (principal)

== ENCOUNTER 2020-02-06 09:45 | Emergency (ER) | payer MEDICARE, MEDICAID ==
[2005-12-31 18:10] VITALS: BP 97/63
[~2020-02-06] VITALS: Ht 154.9 cm; Wt 59.1 kg
[2020-02-06 11:15] LABS: COLLECTION METHOD CLEAN CATCH
[2020-02-06 11:22] LABS: BASO % 0.4 % (0.0-2.0); EOS # 1.1 (0.0-0.7); EOS % 11.8 % (0-4.0); GRAN # 5.5 (1.4-6.5); GRAN % 58.4 % (42.2-75.2); HEMATOCRIT 40.6 % (37.0-47.0); HEMOGLOBIN 13.2 g/dl (12.5-16.0); LYMPH # 2.2 (1.2-3.4); MEAN CELL VOLUME 103 fl (80.0-100.0); MEAN CORPUSCULAR HEMOGLOBIN 33 pg (27.0-31.0); MEAN CORPUSCULAR HGB CONC 33 g/dl (33.0-37.0); MEAN PLATELET VOLUME 8.6 fl (7.4-10.4); MONO # 0.6 (0.1-0.6); MONO % 6.2 % (1.7-9.3); PLATELET COUNT 287 K/mm3 (130-400); RED BLOOD COUNT 3.95 M/mm3 (4.10-5.30); REDCELL DISTRIBUTION WIDTH-CV 13.2 % (11.5-14.5)
[2020-02-06 11:26] LABS: PH 6 (5-8); URINE APPEARANCE Clear; URINE BACTERIA None Seen /hpf; URINE BILIRUBIN Negative (NEGATIVE); URINE BLOOD 2+ (NEGATIVE); URINE COLOR Straw; URINE GLUCOSE Negative (NEGATIVE); URINE KETONE Negative (NEGATIVE); URINE LEUKOCYTE ESTERASE Negative (NEGATIVE); URINE NITRATE Negative (NEGATIVE); URINE PROTEIN(semi-quant) Negative (NEGATIVE); URINE RBC 0-2 /hpf; URINE UROBILINOGEN Negative (NEGATIVE)
[2020-02-06 11:36] LABS: ALANINE AMINOTRANSFERASE 50 U/L (4-34); ALBUMIN 4.1 gm/dL (3.5-5.0); ALKALINE PHOSPHATASE 72 U/L (50-136); ANION GAP 7 mmol/L (7-16); AST,SGOT 40 U/L (15-37); BILIRUBIN,TOTAL 0.3 mg/dL (0.0-1.0); BLOOD UREA NITROGEN 15 mg/dL (7-17); CALCIUM 9.1 mg/dL (8.4-10.2); CARBON DIOXIDE 22 mmol/L (22-30); CHLORIDE 110 mmol/L (98-107); CREATININE, serum 0.91 (0.52-1.25); GLUCOSE 100 mg/dL (74-106); LIPASE 70 U/L (23-300); SODIUM 139 mmol/L (137-145); TOTAL PROTEIN 6.7 gm/dL (6.4-8.2)
[2020-02-06 11:40] LABS: C-REACTIVE PROTEIN < 0.5 mg/dL (0.0-0.9)
[2020-02-06 11:45] LABS: TROPONIN-I < 0.012 ng/mL (0.000-0.035)
[2020-02-06 13:12] VITALS: BP 112/75; PULSE 85; TEMP 98.3
== END 2020-02-06 13:10 | disposition home or self-care (01) ==
LOC: COL.ER 09:45
PROVIDERS: Emergency Medicine
DX: R10.11 Right upper quadrant pain (principal); J44.9 Chronic obstructive pulmonary disease, unspecified; F17.200 Nicotine dependence, unspecified, uncomplicated; Z90.49 Acquired absence of other specified parts of digestive tract; Z32.02 Encounter for pregnancy test, result negative; Z88.1 Allergy status to other antibiotic agents; Z88.8 Allergy status to other drugs, medicaments and biological substances; Z88.9 Allergy status to unspecified drugs, medicaments and biological substances; Z79.82 Long term (current) use of aspirin
CPT/HCPCS: J1170; J1790; J2270; J2405; J7030; Q9967

== ENCOUNTER 2020-03-11 04:55 | Emergency (ER) | payer MEDICARE, MEDICAID ==
[2005-12-31 18:10] VITALS: BP 97/63
[~2020-03-11] VITALS: Ht 154.9 cm; Wt 63.6 kg
[2020-03-11 04:55] VITALS: BP 102/71; PULSE 82; TEMP 98.5
[2020-03-11 05:30] LABS: BASO % 0.2 % (0.0-2.0); EOS # 0.4 (0.0-0.7); EOS % 4.5 % (0-4.0); GRAN # 5.2 (1.4-6.5); GRAN % 59.3 % (42.2-75.2); HEMATOCRIT 41.2 % (37.0-47.0); HEMOGLOBIN 13.7 g/dl (12.5-16.0); LYMPH # 2.6 (1.2-3.4); LYMPH % 28.9 % (20.0-51.0); MEAN CELL VOLUME 102 fl (80.0-100.0); MEAN CORPUSCULAR HEMOGLOBIN 34 pg (27.0-31.0); MEAN CORPUSCULAR HGB CONC 33 g/dl (33.0-37.0); MEAN PLATELET VOLUME 8.3 fl (7.4-10.4); MONO # 0.6 (0.1-0.6); MONO % 6.8 % (1.7-9.3); PLATELET COUNT 253 K/mm3 (130-400); RED BLOOD COUNT 4.04 M/mm3 (4.10-5.30); REDCELL DISTRIBUTION WIDTH-CV 12.5 % (11.5-14.5)
[2020-03-11 05:48] LABS: ALBUMIN 3.8 gm/dL (3.5-5.0); BILIRUBIN,TOTAL 0.3 mg/dL (0.0-1.0); CREATININE, serum 0.99 (0.52-1.25); POTASSIUM 3.9 mmol/L (3.4-5.0); TOTAL PROTEIN 6.3 gm/dL (6.4-8.2)
== END 2020-03-11 07:06 | disposition home or self-care (01) ==
LOC: COL.ER 04:55
PROVIDERS: Emergency Medicine
DX: R10.11 Right upper quadrant pain (principal); R10.13 Epigastric pain; I25.10 Atherosclerotic heart disease of native coronary artery without angina pectoris; E78.5 Hyperlipidemia, unspecified; J44.9 Chronic obstructive pulmonary disease, unspecified; F31.9 Bipolar disorder, unspecified; Z88.8 Allergy status to other drugs, medicaments and biological substances; Z88.1 Allergy status to other antibiotic agents; Z79.82 Long term (current) use of aspirin; Z79.02 Long term (current) use of antithrombotics/antiplatelets
CPT/HCPCS: J2270; J2550

== ENCOUNTER 2020-04-05 10:33 | Emergency (ER) | payer MEDICARE, MEDICAID ==
[2005-12-31 18:10] VITALS: BP 97/63
[~2020-04-05] VITALS: Ht 154.9 cm; Wt 68.2 kg
[2020-04-05 10:34] VITALS: TEMP 98.2
--- NOTE | 2020-04-05 12:54 | NUR ---
LYDIA was notified by the patient's RN that the patient needs transportation back home set up through her Medicaid. LYDIA contacted [employer] and scheduled her a ride home. Trip ID#[id number]. They give a 30 minutes-3 hour estimated time for picker tender and will call the ED when they arrive. LYDIA notified ED staff.
[2020-04-05 13:00] VITALS: BP 110/92; PULSE 99
== END 2020-04-05 13:00 | disposition home or self-care (01) ==
LOC: COL.ER 10:33
DX: S39.012A Strain of muscle, fascia and tendon of lower back, initial encounter (principal); S16.1XXA Strain of muscle, fascia and tendon at neck level, initial encounter; F17.290 Nicotine dependence, other tobacco product, uncomplicated; Z90.49 Acquired absence of other specified parts of digestive tract; Z88.8 Allergy status to other drugs, medicaments and biological substances; Z88.1 Allergy status to other antibiotic agents; Z79.02 Long term (current) use of antithrombotics/antiplatelets; Z79.82 Long term (current) use of aspirin; W01.190A Fall on same level from slipping, tripping and stumbling with subsequent striking against furniture, initial encounter
CPT/HCPCS: J1885

== ENCOUNTER 2020-04-07 01:15 | Emergency (ER) | payer MEDICARE, MEDICAID ==
[2005-12-31 18:10] VITALS: BP 97/63
[~2020-04-07] VITALS: Ht 154.9 cm; Wt 68.2 kg
[2020-04-07 01:15] VITALS: TEMP 97.3
[2020-04-07 02:55] VITALS: BP 105/76; PULSE 73
== END 2020-04-07 03:05 | disposition home or self-care (01) ==
LOC: COL.ER 01:15
DX: S16.1XXA Strain of muscle, fascia and tendon at neck level, initial encounter (principal); S00.93XA Contusion of unspecified part of head, initial encounter; E78.5 Hyperlipidemia, unspecified; F31.9 Bipolar disorder, unspecified; J44.9 Chronic obstructive pulmonary disease, unspecified; K21.9 Gastro-esophageal reflux disease without esophagitis; Z90.49 Acquired absence of other specified parts of digestive tract; Z95.5 Presence of coronary angioplasty implant and graft; Z86.79 Personal history of other diseases of the circulatory system; Z88.1 Allergy status to other antibiotic agents; Z79.82 Long term (current) use of aspirin; W19.XXXA Unspecified fall, initial encounter; Y92.009 Unspecified place in unspecified non-institutional (private) residence as the place of occurrence of the external cause
CPT/HCPCS: J2270

== ENCOUNTER 2020-05-10 09:28 | Inpatient (IN) | payer MEDICARE, MEDICAID ==
[2020-05-10] VITALS (12 sets, daily range): BP systolic 80–113; BP diastolic 52–77; PULSE 63–82; TEMP 94.4–99.1
[~2020-05-10] VITALS: Ht 154.9 cm; Wt 76.4 kg
[~2020-05-10 09:28] MED LIST changes: +GEODON 40MG40 MG PO
--- NOTE | 2020-05-10 10:56 | NUR ---
Patient complains of nausea and asks for nausea medication. VORB received for Zofran 4 mg IV once from Christophe Crane CRNA. EMAR gives a warning for QT prolongation. This RN calls derick Terrell MD and confirms it is safe to administer. Pharmacist approves medication and it is given pre-op.
[2020-05-10] MEDS ORDERED: DESYREL 100MG100 MG PO (10:59)
--- NOTE | 2020-05-10 12:55 | NUR ---
Pt to GI bay 6 via cart from [facility]. Pt drowsy, but awake. Pt c/o of pain 01/10 to RUQ/Midepigastric region. Pt assisted to recliner. Warm blanket provided. notified of pt's pain and orders given. Call light within reach.
--- NOTE | 2020-05-10 13:10 | NUR ---
Pt continues to rest. Fentanyl 50mcg IVSP given at 1304 per orders for pain. Call light within reach.
--- NOTE | 2020-05-10 13:25 | NUR ---
Pt sleeping. Respirations even and unlabored. Will continue to monitor. Call light within reach.
--- NOTE | 2020-05-10 13:40 | NUR ---
Pt c/o nausea. notified and orders given. Will given Zofran 4mg IV per orders. Ice chips provided to pt per request. Will continue to monitor. Call light within reach.
--- NOTE | 2020-05-10 14:10 | NUR ---
Pt continues to rest. Pt tolerating po ice chips without difficulites. Will continue to monitor. Call light within reach.
--- NOTE | 2020-05-10 14:40 | NUR ---
Pt up to restroom with stand by assist. Pt voids without difficulties. Will continue to monitor. Call light within reach.
--- NOTE | 2020-05-10 15:11 | NUR ---
Pt c/o belching and pain to RUQ. Pt describes it as "burning." and rates pain 11/09. notified. Mather 5/325mg 1 tablet po ordered. Will administer Mather when it becomes available from pharmacy. Call light within reach.
--- NOTE | 2020-05-10 15:35 | NUR ---
Pt continues to rest. Denies needs at this time. Call light within reach.
--- NOTE | 2020-05-10 15:59 | NUR ---
Pt continues to have pain. Pt rates pain 7/10 and reports no relief from [place] that was given. Will notify physician.
--- NOTE | 2020-05-10 16:17 | NUR ---
Orders recieved from for lab work. Lab notified. Will continue to monitor.
--- NOTE | 2020-05-10 17:06 | NUR ---
Lab drawn by this nurse from left AC. Pt continues to rest. Denies any improvement in pain. Will continue to monitor.
[2020-05-10 17:30] LABS: AMYLASE 241 U/L (30-110); HEMATOCRIT 43.2 % (37.0-47.0); HEMOGLOBIN 14.2 g/dl (12.5-16.0); MEAN CELL VOLUME 101 fl (80.0-100.0); MEAN CORPUSCULAR HEMOGLOBIN 33 pg (27.0-31.0); MEAN CORPUSCULAR HGB CONC 33 g/dl (33.0-37.0); PLATELET COUNT 309 K/mm3 (130-400); RED BLOOD COUNT 4.28 M/mm3 (4.10-5.30); REDCELL DISTRIBUTION WIDTH-CV 12.5 % (11.5-14.5)
[2020-05-10 18:11] LABS: LIPASE 4857 U/L (23-300)
--- NOTE | 2020-05-10 18:25 | NUR ---
Amylase and Lipase values have resulted high. Still awaiting CBC results. Amylase and lipase values reported to . Orders given to keep pt overnight under hospitalist care. Pt ok with this.
--- NOTE | 2020-05-10 19:23 | NUR ---
RECEIVED REPORT FROM DIONI FROM [facility]. WAITING FOR PATIENT ARRIVAL.
[2020-05-10 19:24] LABS: EOSINOPHIL 5 % (0-4); LYMPHOCYTE 34 % (20.0-51.0); NEUTROPHILS 57 % (42.0-75.2)
--- NOTE | 2020-05-10 19:24 | NUR ---
Awaiting clean room on floor for pt to be admitted in. Spoke with Bimal ROSENTHAL Hospitalist as pt is having 10/10 pain to abdomen. Orders given for NS bolus and PRN pain medication. NS bolus started. Morphine 2mg IVSP given. Will continue to monitor. Call light within reach.
[2020-05-10 19:25] LABS: HYPOCHROMIA 1+; PLATELET ESTIMATE NORMAL (NORMAL)
[2020-05-10 19:26] LABS: TOXIC GRANULATION PRESENT
--- NOTE | 2020-05-10 19:37 | NUR ---
Pt screaming out in pain. Pt states "Just put me to sleep, I can't do this, I don't know what to do, I'm dying, Please help me." Pt very restless, trying to climb out of chair. Bimal ROSENTHAL notified and updated. Blood pressure 104/77 with NS 500ml bolus complete. New orders were given. Will continue to monitor. Call light within reach.
[2020-05-10 20:03] LABS: ALBUMIN 3.6 gm/dL (3.5-5.0); BILIRUBIN,TOTAL 0.4 mg/dL (0.0-1.0); CALCIUM 9.4 mg/dL (8.4-10.2); CREATININE, serum 0.91 (0.52-1.25); POTASSIUM 3.6 mmol/L (3.4-5.0); TOTAL PROTEIN 6.2 gm/dL (6.4-8.2)
--- NOTE | 2020-05-10 20:24 | NUR ---
Pt transfered to room 347 via wheel chair. Pt assisted into bed. Dilaudid 0.5mg IVSP given. Aviva RN at bedside. VSS. Call light within reach. Side rails up x2.
[2020-05-11] VITALS (8 sets, daily range): BP systolic 107–139; BP diastolic 59–87; PULSE 68–115; TEMP 97.8–98.7
--- NOTE | 2020-05-11 01:17 | NUR ---
REPORTS DOES NOT WANT TO TAKE ANY LIQUIDS DIET, JUST ENOUGH TO SWALLOW PILLS, AFTER REFUSED OFFER OF CLEAR LIQUIDS TO EAT AT THIS TIME.
[2020-05-11 07:09] LABS: HEMOGLOBIN 13.6 g/dl (12.5-16.0); MEAN CELL VOLUME 100 fl (80.0-100.0); MEAN CORPUSCULAR HEMOGLOBIN 32 pg (27.0-31.0); MEAN CORPUSCULAR HGB CONC 32 g/dl (33.0-37.0); MEAN PLATELET VOLUME 9.1 fl (7.4-10.4); PLATELET COUNT 309 K/mm3 (130-400); REDCELL DISTRIBUTION WIDTH-CV 12.2 % (11.5-14.5)
--- NOTE | 2020-05-11 07:16 | NUR ---
CHANGE OF SHIFT REPORT GIVEN TO DAY SHIFT NURSEJUDY.
[2020-05-11 07:25] LABS: ALBUMIN 3.5 gm/dL (3.5-5.0); BILIRUBIN,TOTAL 0.5 mg/dL (0.0-1.0); CALCIUM 8.7 mg/dL (8.4-10.2); CREATININE, serum 0.73 (0.52-1.25); POTASSIUM 3.7 mmol/L (3.4-5.0)
[2020-05-11 10:38] LABS: BAND 1 % (0-10); BURR CELLS 1+; LYMPHOCYTE 4 % (20.0-51.0); NEUTROPHILS 93 % (42.0-75.2); OVALOCYTES 1+; PLATELET ESTIMATE NORMAL (NORMAL)
--- NOTE | 2020-05-11 11:00 | NUR ---
Patient has been sleeping since getting dilauded this am. When awake she states having pain to right lower abdomen. Denies nausea. She alert and oriented but seems to have a hard time understanding her diagnosis. Offered to print of education, she said she couldn't read it because of the pain. She is weak with ambulation and is not able to go far. Her family has been updated. No other changes at this time. Call light within reach. Bed alarm on.
--- NOTE | 2020-05-11 12:15 | NUR ---
Chaplain marquis and offered support with patient.
--- NOTE | 2020-05-11 13:26 | NUR ---
SW met with patient to complete intake. Patient states that she lives alone in [place], [place]. Patient states that she utilizes a walker and receives some assistance with ADL's from home care and hospice. Patient states that her PCP is Dr. Lugo, pharmacy is [facility], and is able to afford her medications at this time. Patient states that her son is her DPOA-HC, Elieser. Patient states that she plans to return to her home in [facility] on [place]. SW will provide home care and hospice updated information on patient. LYDIA will continue to follow.
[2020-05-11 17:07] LABS: COLLECTION METHOD CLEAN CATCH
[2020-05-11 17:14] LABS: PH 7 (5-8); SQUAMOUS EPITHELIAL 0-2 /hpf; URINE APPEARANCE Clear; URINE BACTERIA None Seen /hpf; URINE BILIRUBIN Negative (NEGATIVE); URINE BLOOD Negative (NEGATIVE); URINE COLOR Straw; URINE GLUCOSE Negative (NEGATIVE); URINE KETONE Negative (NEGATIVE); URINE LEUKOCYTE ESTERASE Negative (NEGATIVE); URINE NITRATE Negative (NEGATIVE); URINE PROTEIN(semi-quant) Negative (NEGATIVE); URINE RBC 0-2 /hpf; URINE UROBILINOGEN Negative (NEGATIVE)
--- NOTE | 2020-05-11 18:00 | NUR ---
Patient has been started on a CLUB MANAGER for pain control. She verbalized understanding of the CLUB MANAGER works but whenever asked if she pressed the button for pain meds, she states no. She was having a hard time voiding this morning but was able to go. This afternoon she could not void, waggoner catheter placed. Codi care provided. Explained why placing the waggoner, patient verbalized understanding. 1000ml clear yellow urine returned from catheter. Patient continues to state shes having pain with the CLUB MANAGER. She keeps forgetting to press the button or states she can not find the button. She seems to be resting more comfortably since waggoner catheter being placed. No other changes at this time. Call light within reach.
--- NOTE | 2020-05-11 23:40 | NUR ---
REPORT FROM DAY SHIFT NURSE OBTAINED. PT RESTING IN BED WITH EYES CLOSED BUT SOON OPENS HER EYES WHEN WE WALK IN HER ROOM. BOOK MENDER AND IV FLUIDS INFUSING WITHOUT ANY DIFFICULTY. REMINDED PT THAT SHE HAS TO PUCH HER BOOK MENDER BUTTON TO GET PAIN MED. CALL LIGHT IN REACH.
[2020-05-12] VITALS (287 sets, daily range): BP systolic 83–131; BP diastolic 29–91; PULSE 120–143; TEMP 96.6–98.9; O2SAT 81–100
--- NOTE | 2020-05-12 00:57 | NUR ---
PT REPOSITIONS SELF IN BED AND WILL SIT ON EDGE OF BED. HAS MEDICAL RECORDS DIRECTOR PUMP WITH DILAUDID AT O.2MG EVERY 15 MIN. SHE DOES HAVE TO BE REMINDED TO USE THE BUTTON WHEN SHE HAS PAIN. ROSENTHAL CATH TO DD WITH CLEAR, YELLOW URINE. SCD'S ON BILAT. IV SITE WITH NO S/S OF INFILTRATION. NS INFUSING AT 150ML/HR. CALL LIGHT WITHIN REACH.
[2020-05-12 07:08] LABS: HEMATOCRIT 46.7 % (37.0-47.0); HEMOGLOBIN 15.3 g/dl (12.5-16.0); MEAN CELL VOLUME 100 fl (80.0-100.0); MEAN CORPUSCULAR HEMOGLOBIN 33 pg (27.0-31.0); MEAN CORPUSCULAR HGB CONC 33 g/dl (33.0-37.0); MEAN PLATELET VOLUME 9.4 fl (7.4-10.4); PLATELET COUNT 222 K/mm3 (130-400); RED BLOOD COUNT 4.65 M/mm3 (4.10-5.30)
[2020-05-12 07:16] LABS: CALCIUM 8.7 mg/dL (8.4-10.2); CREATININE, serum 0.74 (0.52-1.25); MAGNESIUM 1.8 mg/dL (1.6-2.3); POTASSIUM 3.4 mmol/L (3.4-5.0)
--- NOTE | 2020-05-12 07:25 | NUR ---
Received in shift report that patients respirations have jumpted up, her heart rate has been in the 120's and her oxygen saturation dropped and is now on oxygen with an oxymask. Patients respirations have been between 40-50 a min. Her oxygen is 88% on 6L on oxymask. Tried to get her breathing slowed, she will not take deep breaths. She just keeps saying she is having pain. She is more confused today. She keeps saying she is having pain in her abdomen but that is not new from yesterday. She denies nausea. She keeps saying she did not know where she is. Notified Dr Alejandra, stat portable chest xray ordered. No other changes at this time. Will continue to monitor. Dr Alejandra also ordered to stop IVF's.
--- NOTE | 2020-05-12 07:29 | NUR ---
PT UP TO EDGE OF BED EARLIER AND STATES SHE FELT NAUSEATED. ASKED HER IF SHE WANTED SOME MEDICATION. SHE REFUSED AND SAID SHE WAS NOT NAUSEATED. LAYS BACK DOWN IN BED. O2 ON PER OXY MASK AT 6L. BRINGS SATS TO 89-91%. RESTING WITH EYES CLOSED. DEPUTY ASSESSOR CONTINUES AT 0.2MG EVERY 15MIN. CALL LIGHT IN REACH.
--- NOTE | 2020-05-12 07:58 | NUR ---
0730 THIS RN NOTIFIED PATIENT'S RN THAT SAO2 87% ON 6L VIA MASK. PATIENT ALSO CONFUSED AND TRYING TO GET UP AT THIS TIME WELL
--- NOTE | 2020-05-12 08:29 | NUR ---
This nurse at bedside. Called RT Gisselle to provide breathing treatment, she reports patient is on her list. Anastasia primary nurse at bedside, she has called for the second time for orders. This nurse also called executive housekeeper to come see patient . Patient tachycardic & tachypneic and requiring increasing needs in O2. Patient unable to follow instructions to slow her breathing. Attempted multiple times to instruct her.
--- NOTE | 2020-05-12 09:00 | NUR ---
EKG completed. Dr Alejandra has seen patient. ABG ordered but they were not able to that at this time. Patient has still been breathing at about 40 respirations a min. She is becoming more anxious. She will be transferring to ICU. She is still on the oxymask, her saturations are dropping to 84-86% on 6-10 liters. VENEER LAYER discontinued. Patient spoke with Dr Alejandra and said she wants everything done. Waiting for a room assignment. Her heart rate has increased to the 140's. No other changes at this time. Call light within reach.
--- NOTE | 2020-05-12 09:23 | NUR ---
PT ARRIVED BY STRETCHER WITH BONNIE TRAORE. PT IS CONFUSED ON 10L OXY MASK SPO2 88%. PT ALERT TO SELF. PT CONFUSED ON DAY, SITUATION AND PLACE. DR. DAVILA BEDSIDE.
[2020-05-12 09:24] LABS: TROPONIN-I < 0.012 ng/mL (0.000-0.035)
--- NOTE | 2020-05-12 09:30 | NUR ---
Patient has been transferred to ICU. Report called to RN taking over. Notified family that patient was transferred to ICU. Dr Alejandra is downstairs with the patient. All belongings packed up and sent with patient. Chart with patient.
[2020-05-12 10:06] LABS: BAND 45 % (0-10); LYMPHOCYTE 8 % (20.0-51.0); METAMYELOCYTE 11 % (0-0); MYELOCYTE 5 % (0-0); NEUTROPHILS 27 % (42.0-75.2)
[2020-05-12 10:07] LABS: ARTERIAL BLD GAS O2 SATURATION 86.4 % (92-100); ARTERIAL BLOOD GAS BASE EXCESS -16.8 (-2-2); ARTERIAL BLOOD GAS HCO3 8.4 meq/L (22-26); ARTERIAL BLOOD GAS PO2 50.9 mmHg (80-100); ARTERIAL BLOOD GAS pH 7.23 (7.35-7.45)
[2020-05-12 10:07] LABS: HYPOCHROMIA 1+; PLATELET ESTIMATE NORMAL (NORMAL)
[2020-05-12 10:08] LABS: ARTERIAL BLOOD GAS PCO2 20.6 mmHg (35-45)
--- NOTE | 2020-05-12 10:10 | NUR ---
PT TAKEN TO CT
--- NOTE | 2020-05-12 11:33 | NUR ---
SW informed that patient's son Elieser was only 17 years of age and unable to to make health care decisions. Patient's son's father Rodrigo Kendall [phone] (not her ) called and stated that he would like to be informed of any information in regards to patient's care. (Elieser is currently residing with Rodrigo) SW informed Rodrigo that information in regards patient's care will need to go to next of kin. LYDIA asked about other children and Rodrigo provided 2 other children. Son Luis F [phone], and daughter Ying [phone]. Ying called LYDIA and inquired about the above information and stated that she is 26 years old and would like to be the primary contact in regards to her mother's care. Patient is unable to verbalize any needs at this time, currently in ICU, and also does not have a documented DPOA-HC in facility file. LYDIA called Rodrigo back and informed him of Ying being the primary contact for information in regards to patient care. LYDIA will continue to follow.
[2020-05-12 12:53] LABS: ARTERIAL BLD GAS O2 SATURATION 95.8 % (92-100); ARTERIAL BLD GAS TCO2 CT 15.7; ARTERIAL BLOOD GAS BASE EXCESS -11.8 (-2-2); ARTERIAL BLOOD GAS HCO3 14.6 meq/L (22-26); ARTERIAL BLOOD GAS PO2 82.1 mmHg (80-100); ARTERIAL BLOOD GAS pH 7.24 (7.35-7.45)
[2020-05-12 13:10] LABS: SALICYLATE < 1.0 mg/dL
[2020-05-12 13:26] LABS: TROPONIN-I < 0.012 ng/mL (0.000-0.035)
[2020-05-12 13:47] LABS: INR 1.7 (0.8-3.0); PROTHROMBIN TIME 19.5 SECONDS (9.7-12.8)
--- NOTE | 2020-05-12 14:16 | NUR ---
Vancomycin Initial Dosing Pharmacy Note Ordering provider: Esequiel Hurtado MD Indication/duration: Empiric coverage Relevant comorbidities: Intubated patient LABS: eCrCl~ 80 mL/min Recommendation: Maintenance dose: 1.25 grams every 12 hours Trough goal: 15-20 ug/mL Pharmacy will continue to follow.
[2020-05-12 17:29] LABS: ARTERIAL BLD GAS O2 SATURATION 99.2 % (92-100); ARTERIAL BLD GAS TCO2 CT 16.9; ARTERIAL BLOOD GAS BASE EXCESS -5.4 (-2-2); ARTERIAL BLOOD GAS HCO3 16.2 meq/L (22-26); ARTERIAL BLOOD GAS pH 7.45 (7.35-7.45)
[2020-05-12 17:30] LABS: ARTERIAL BLOOD GAS PCO2 23.8 mmHg (35-45); ARTERIAL BLOOD GAS PO2 209.3 mmHg (80-100)
--- NOTE | 2020-05-12 19:07 | NUR ---
1101- TIME OUT FOR INTUBATION AND CENTRAL LINE PLACEMENT 1102- MEDS GIVEN PLEASE SEE EMAR [address] AT 25 AT TEETH. COLOR CHANGE GOOD 1105- MEDS GIVEN PLEASE SEE EMAR 1108 BICAR BOLUS STARTED [address] 1138- BICAB BOLUS DONE AND RESUMED AT 75ML/HR
--- NOTE | 2020-05-12 20:21 | NUR ---
REPORT GIVEN TO BONNIE GIVENS. CARE RELINQUISHED AT THIS TIME.
[2020-05-12 20:37] LABS: ARTERIAL BLOOD GAS pH 7.47 (7.35-7.45)
[2020-05-12 20:38] LABS: ARTERIAL BLD GAS O2 SATURATION 97.4 % (92-100); ARTERIAL BLOOD GAS BASE EXCESS 15.5 (-2-2); ARTERIAL BLOOD GAS PO2 84.8 mmHg (80-100)
[2020-05-12 20:44] LABS: CALCIUM 7.9 mg/dL (8.4-10.2); CREATININE, serum 0.91 (0.52-1.25); POTASSIUM 3.9 mmol/L (3.4-5.0)
[2020-05-13] VITALS (575 sets, daily range): BP systolic 64–114; BP diastolic 48–88; PULSE 122–140; TEMP 97.3–101.7; O2SAT 63–100
[2020-05-13 05:26] LABS: ARTERIAL BLD GAS O2 SATURATION 96.9 % (92-100); ARTERIAL BLOOD GAS BASE EXCESS -6.1 (-2-2); ARTERIAL BLOOD GAS HCO3 17.1 meq/L (22-26); ARTERIAL BLOOD GAS PCO2 28.3 mmHg (35-45); ARTERIAL BLOOD GAS PO2 87.8 mmHg (80-100)
--- NOTE | 2020-05-13 05:30 | NUR ---
PATIENT BECOMES RESTLESS WHEN MEDICATION IS PUT ON STAND BY WHEN LABS WER DRAWN, PATIENT HAS AN INCREASED PULSE UP TO 140/MIN. KEPT PAtIENT SEDATED TO PROMOTE REST AT THIS TIME
[2020-05-13 05:56] LABS: HEMATOCRIT 42.3 % (37.0-47.0); HEMOGLOBIN 14.2 g/dl (12.5-16.0); MEAN CELL VOLUME 99 fl (80.0-100.0); MEAN CORPUSCULAR HEMOGLOBIN 33 pg (27.0-31.0); MEAN CORPUSCULAR HGB CONC 34 g/dl (33.0-37.0); MEAN PLATELET VOLUME 10.3 fl (7.4-10.4); PLATELET COUNT 142 K/mm3 (130-400); RED BLOOD COUNT 4.29 M/mm3 (4.10-5.30); REDCELL DISTRIBUTION WIDTH-CV 13.2 % (11.5-14.5)
[2020-05-13 06:10] LABS: CALCIUM 7.3 mg/dL (8.4-10.2); CREATININE, serum 1.08 (0.52-1.25); MAGNESIUM 1.8 mg/dL (1.6-2.3); PHOSPHOROUS 2.1 mg/dL (2.5-4.5); POTASSIUM 3.9 mmol/L (3.4-5.0)
--- NOTE | 2020-05-13 07:30 | NUR ---
REPORT RECEIVED FROM BONNIE GIVENS
[2020-05-13 08:02] LABS: BAND 40 % (0-10); LYMPHOCYTE 19 % (20.0-51.0); NEUTROPHILS 28 % (42.0-75.2); PLATELET ESTIMATE NORMAL (NORMAL)
[2020-05-13 08:03] LABS: BURR CELLS 1+
[2020-05-13 08:11] LABS: PATHOLOGY DIFF REVIEW OK
--- NOTE | 2020-05-13 09:30 | NUR ---
DR. PASCAL HERE TO SEE PATIENT. HE CALLS DAUGHTER WITH UPDATE. ORDER RECEIVED FOR GI CONSULT
--- NOTE | 2020-05-13 11:56 | NUR ---
Chaplain steeld for patient while standing outside of door
--- NOTE | 2020-05-13 15:00 | NUR ---
PATIENT TAKEN TO CT AT THIS TIME. SHE TOLERATES WELL.
--- NOTE | 2020-05-13 16:00 | NUR ---
DR. WRIGHT CALLED WITH CT RESULTS.
--- NOTE | 2020-05-13 20:00 | NUR ---
BONNIE GIVENS GIVEN REPORT.
--- NOTE | 2020-05-13 20:29 | NUR ---
DR. DIXON CALLED TO NOTIFY OF CONSULT.
[2020-05-14] VITALS (666 sets, daily range): BP systolic 92–119; BP diastolic 67–75; PULSE 108–126; TEMP 99.3–101.3; O2SAT 83–100
[2020-05-14 05:34] LABS: HEMATOCRIT 38.9 % (37.0-47.0); MEAN CELL VOLUME 98 fl (80.0-100.0); MEAN CORPUSCULAR HEMOGLOBIN 33 pg (27.0-31.0); MEAN CORPUSCULAR HGB CONC 33 g/dl (33.0-37.0); MEAN PLATELET VOLUME 10.3 fl (7.4-10.4); PLATELET COUNT 85 K/mm3 (130-400); RED BLOOD COUNT 3.97 M/mm3 (4.10-5.30); REDCELL DISTRIBUTION WIDTH-CV 13.5 % (11.5-14.5)
[2020-05-14 05:41] LABS: ARTERIAL BLD GAS O2 SATURATION 91.3 % (92-100); ARTERIAL BLD GAS TCO2 CT 20.7; ARTERIAL BLOOD GAS BASE EXCESS -3.2 (-2-2); ARTERIAL BLOOD GAS HCO3 19.7 meq/L (22-26); ARTERIAL BLOOD GAS PCO2 29.6 mmHg (35-45); ARTERIAL BLOOD GAS PO2 53.1 mmHg (80-100); ARTERIAL BLOOD GAS pH 7.44 (7.35-7.45)
[2020-05-14 05:42] LABS: CALCIUM 7.4 mg/dL (8.4-10.2); CREATININE, serum 0.84 (0.52-1.25); MAGNESIUM 2.5 mg/dL (1.6-2.3); PHOSPHOROUS 2.3 mg/dL (2.5-4.5); POTASSIUM 3.4 mmol/L (3.4-5.0)
[2020-05-14 06:21] LABS: BAND 25 % (0-10); LYMPHOCYTE 4 % (20.0-51.0); NEUTROPHILS 70 % (42.0-75.2); PLATELET ESTIMATE DECREASED (NORMAL)
[2020-05-14 11:58] LABS: INR 2.4 (0.8-3.0); PROTHROMBIN TIME 27.6 SECONDS (9.7-12.8)
[2020-05-14 12:00] LABS: PARTIAL THROMBOPLASTIN TIME 57.5 SECONDS (26.0-37.0)
[2020-05-15] VITALS (440 sets, daily range): BP systolic 85–119; BP diastolic 53–82; PULSE 68–81; TEMP 97.4–97.8; O2SAT 97–100
--- NOTE | 2020-05-15 07:00 | NUR ---
ALL SEDATION STOPPED AT THIS TIME DURING REPORT FROM BONNIE GIVENS. PATIENT HAS NO NEURO RESPONSE AT THIS TIME. EYES ARE DEVIATING IN OPPOSITE DIRECTIONS. WILL ALERT DR. PASCAL WHEN HE GETS HERE FOR MORNING ROUNDS.
--- NOTE | 2020-05-15 07:30 | NUR ---
DR. PASCAL ORDERS CT HEAD AT THIS TIME. PATIENT CONTINUES TO MAKE NO EFFORTS TO MOVE WHILE SEDATIONIS OFF. WILL KEEP SEDATION OFF AND ASSESS NEURO STATUS FREQUENTLY
--- NOTE | 2020-05-15 09:00 | NUR ---
DR. PASCAL CALLS DAUGHTER, CORY AT THIS TIME TO GIVE AN UPDATE.
--- NOTE | 2020-05-15 10:00 | NUR ---
RETURN FROM CT OF HEAD AT THIS TIME. AWAITING RESULTS.
[2020-05-15 12:10] LABS: HEMATOCRIT 32.1 % (37.0-47.0); HEMOGLOBIN 10.8 g/dl (12.5-16.0); MEAN CELL VOLUME 99 fl (80.0-100.0); MEAN CORPUSCULAR HEMOGLOBIN 33 pg (27.0-31.0); MEAN CORPUSCULAR HGB CONC 34 g/dl (33.0-37.0); MEAN PLATELET VOLUME 10.6 fl (7.4-10.4); PLATELET COUNT 60 K/mm3 (130-400); RED BLOOD COUNT 3.24 M/mm3 (4.10-5.30); REDCELL DISTRIBUTION WIDTH-CV 13.9 % (11.5-14.5)
[2020-05-15 12:45] LABS: INR 2.5 (0.8-3.0); PROTHROMBIN TIME 27.8 SECONDS (9.7-12.8)
--- NOTE | 2020-05-15 13:03 | NUR ---
Automated Process Operator attempted to call patient's daughter, Ying but the voicemail box was full.
[2020-05-15 13:29] LABS: ANISOCYTOSIS 1+; BAND 17 % (0-10); LYMPHOCYTE 2 % (20.0-51.0); NEUTROPHILS 75 % (42.0-75.2); PLATELET ESTIMATE DECREASED (NORMAL)
[2020-05-15 13:30] LABS: CALCIUM 7.5 mg/dL (8.4-10.2); CREATININE, serum 0.73 (0.52-1.25); MAGNESIUM 2.7 mg/dL (1.6-2.3); PHOSPHOROUS 2.4 mg/dL (2.5-4.5); POTASSIUM 3.3 mmol/L (3.4-5.0)
--- NOTE | 2020-05-15 16:34 | NUR ---
SEDATION REMAINS OFF SINCE 0700. NO NEURO RESPONSE. NO PURPOSEFUL MOVEMENT. EYES CONTINUE TO BE DEVIATED IN OPPOSITE DIRECTIONS. WILL CONTINUE TO MONITOR.
--- NOTE | 2020-05-15 19:00 | NUR ---
BEDSIDE REPORT GIVEN TO BONNIE RODRIGUEZ
--- NOTE | 2020-05-15 19:05 | NUR ---
Received report from BONNIE Van. All drips verified at bedside. Vitals within normal limits. Patient resting quietly in bed. No further needs noted at this time.
[2020-05-16] VITALS (562 sets, daily range): BP systolic 89–119; BP diastolic 64–89; PULSE 85–103; TEMP 97.7–98.7; O2SAT 88–100
[2020-05-16 04:49] LABS: ARTERIAL BLD GAS O2 SATURATION 98.1 % (92-100); ARTERIAL BLD GAS TCO2 CT 21.8; ARTERIAL BLOOD GAS BASE EXCESS -2.3 (-2-2); ARTERIAL BLOOD GAS HCO3 20.8 meq/L (22-26); ARTERIAL BLOOD GAS PCO2 30.9 mmHg (35-45); ARTERIAL BLOOD GAS PO2 106.5 mmHg (80-100); ARTERIAL BLOOD GAS pH 7.45 (7.35-7.45)
--- NOTE | 2020-05-16 05:00 | NUR ---
All sedation on standby since 05/15/2020, at 0700. Patient continues to be minimally responsive. She does slightly move lower extremities on the bed. Pupils equal and reactive to light; she does not track movements. Eyes are open more frequently, but action does not appear to be purposeful. Does not follow verbal commands. Will continue to monitor.
[2020-05-16 05:37] LABS: MEAN CELL VOLUME 99 fl (80.0-100.0); MEAN CORPUSCULAR HEMOGLOBIN 32 pg (27.0-31.0); MEAN CORPUSCULAR HGB CONC 32 g/dl (33.0-37.0); MEAN PLATELET VOLUME 12.1 fl (7.4-10.4); PLATELET COUNT 66 K/mm3 (130-400); RED BLOOD COUNT 3.42 M/mm3 (4.10-5.30); REDCELL DISTRIBUTION WIDTH-CV 14.4 % (11.5-14.5)
[2020-05-16 05:39] LABS: HEMATOCRIT 33.9 % (37.0-47.0)
[2020-05-16 06:08] LABS: BAND 3 % (0-10); LYMPHOCYTE 3 % (20.0-51.0); METAMYELOCYTE 2 % (0-0); MYELOCYTE 1 % (0-0); NEUTROPHILS 86 % (42.0-75.2); NUCLEATED RED BLOOD CELL 1 (0-6)
[2020-05-16 06:09] LABS: ANISOCYTOSIS 1+; HYPOCHROMIA 1+; PLATELET ESTIMATE DECREASED (NORMAL)
--- NOTE | 2020-05-16 07:20 | NUR ---
Report given to BONNIE Laws.
[2020-05-16 07:42] LABS: CREATININE, serum 0.6 (0.52-1.25); POTASSIUM 3.9 mmol/L (3.4-5.0)
--- NOTE | 2020-05-16 08:00 | NUR ---
at bedside. Wants to d/c IVF, consult neurology, get an EEG and ABG.
--- NOTE | 2020-05-16 08:48 | NUR ---
technical document writer at bedside to start procedure.
[2020-05-16 09:26] LABS: ARTERIAL BLD GAS O2 SATURATION 98.3 % (92-100); ARTERIAL BLD GAS TCO2 CT 21.7; ARTERIAL BLOOD GAS BASE EXCESS -2.3 (-2-2); ARTERIAL BLOOD GAS HCO3 20.7 meq/L (22-26); ARTERIAL BLOOD GAS PCO2 30.1 mmHg (35-45); ARTERIAL BLOOD GAS pH 7.46 (7.35-7.45)
--- NOTE | 2020-05-16 09:26 | NUR ---
talked to patients daughter to give her an update.
[2020-05-16 09:27] LABS: ARTERIAL BLOOD GAS PO2 128.7 mmHg (80-100)
--- NOTE | 2020-05-16 09:40 | NUR ---
Called to notify him of neurology consult on patient by . He will come see patient today.
--- NOTE | 2020-05-16 10:52 | NUR ---
Daina, cylinder die machine operator, at bedside. SHe said to leave feeds at 45ml/hr and we will not increase it anymore. Order is being changed for 45 to be new goal.
--- NOTE | 2020-05-16 11:35 | NUR ---
Professional Driver contacted patient's daughter, Ying to check in. Ying had no questions or concerns for SW at this time. SW provided Ying with SW's contact information. LYDIA also collaborated with BONNIE Laws and advised that patient's two adult children, Ying and Luis F are legal next of kin. LYDIA added Luis F's contact information to chart. LYDIA will continue to follow.
--- NOTE | 2020-05-16 18:03 | NUR ---
DID NOT DO SESDATION VACATION, PATIENT WAS OFF SEDATION FOR ABOUT 29 HOURS UNTIL VERSED WAS RESTARTED FOR COMFORT FOR THE PATIENT.
--- NOTE | 2020-05-16 21:50 | NUR ---
Dr. Velazquez finishing central line placement at this time. CXR ordered. Central line okay to use per Dr. Velazquez.
[2020-05-17] VITALS (783 sets, daily range): BP systolic 106–140; BP diastolic 76–97; PULSE 95–106; TEMP 98.4–99.7; O2SAT 94–100
--- NOTE | 2020-05-17 00:38 | NUR ---
PT to CT at 0019 and back at 0037. Tolerated scan well. No issues.
[2020-05-17 05:29] LABS: HEMOGLOBIN 10.8 g/dl (12.5-16.0); MEAN CELL VOLUME 99 fl (80.0-100.0); MEAN CORPUSCULAR HEMOGLOBIN 32 pg (27.0-31.0); MEAN CORPUSCULAR HGB CONC 32 g/dl (33.0-37.0); MEAN PLATELET VOLUME 12.2 fl (7.4-10.4); PLATELET COUNT 76 K/mm3 (130-400); RED BLOOD COUNT 3.36 M/mm3 (4.10-5.30); REDCELL DISTRIBUTION WIDTH-CV 14.6 % (11.5-14.5)
[2020-05-17 05:34] LABS: HEMATOCRIT 33.3 % (37.0-47.0)
[2020-05-17 05:36] LABS: ARTERIAL BLD GAS O2 SATURATION 98.8 % (92-100); ARTERIAL BLD GAS TCO2 CT 20.6; ARTERIAL BLOOD GAS BASE EXCESS -3.1 (-2-2); ARTERIAL BLOOD GAS HCO3 19.8 meq/L (22-26); ARTERIAL BLOOD GAS PCO2 27.1 mmHg (35-45); ARTERIAL BLOOD GAS pH 7.48 (7.35-7.45)
[2020-05-17 05:37] LABS: ARTERIAL BLOOD GAS PO2 134.7 mmHg (80-100)
[2020-05-17 05:38] LABS: CALCIUM 8.1 mg/dL (8.4-10.2); CREATININE, serum 0.6 (0.52-1.25)
--- NOTE | 2020-05-17 05:45 | NUR ---
SEDATION INCREASED RATHER THAN DECREASED DUE TO PATIENT OVERBREATHING VENT AND FREQUENTLY BITING ET TUBE.
[2020-05-17 05:58] LABS: LYMPHOCYTE 4 % (20.0-51.0); NEUTROPHILS 91 % (42.0-75.2); PLATELET ESTIMATE DECREASED (NORMAL)
[2020-05-17 05:59] LABS: HYPOCHROMIA 1+; TOXIC GRANULATION PRESENT
[2020-05-17 06:00] LABS: OVALOCYTES 1+; POIKILOCYTOSIS 1+
[2020-05-17 09:53] LABS: INR 1.1 (0.8-3.0)
[2020-05-17 17:07] LABS: ARTERIAL BLD GAS O2 SATURATION 98.7 % (92-100); ARTERIAL BLD GAS TCO2 CT 23.9; ARTERIAL BLOOD GAS BASE EXCESS -0.2 (-2-2); ARTERIAL BLOOD GAS HCO3 22.9 meq/L (22-26); ARTERIAL BLOOD GAS PCO2 32.3 mmHg (35-45); ARTERIAL BLOOD GAS PO2 114.9 mmHg (80-100); ARTERIAL BLOOD GAS pH 7.47 (7.35-7.45)
[2020-05-18] VITALS (778 sets, daily range): BP systolic 104–127; BP diastolic 75–83; PULSE 104–137; TEMP 97.5–100.1; O2SAT 59–100
--- NOTE | 2020-05-18 05:00 | NUR ---
NO SEDATION VACATION PATIENT IS CURRENTLY OVERBREATHING THE VENT.
[2020-05-18 05:24] LABS: MEAN CELL VOLUME 103 fl (80.0-100.0); MEAN CORPUSCULAR HEMOGLOBIN 33 pg (27.0-31.0); MEAN CORPUSCULAR HGB CONC 32 g/dl (33.0-37.0); MEAN PLATELET VOLUME 11.7 fl (7.4-10.4); PLATELET COUNT 114 K/mm3 (130-400); RED BLOOD COUNT 3.34 M/mm3 (4.10-5.30); REDCELL DISTRIBUTION WIDTH-CV 15.1 % (11.5-14.5)
[2020-05-18 05:28] LABS: HEMATOCRIT 34.4 % (37.0-47.0); INR 1.1 (0.8-3.0); PROTHROMBIN TIME 11.8 SECONDS (9.7-12.8)
[2020-05-18 05:34] LABS: ARTERIAL BLD GAS O2 SATURATION 98.3 % (92-100); ARTERIAL BLD GAS TCO2 CT 20.7; ARTERIAL BLOOD GAS BASE EXCESS -3.4 (-2-2); ARTERIAL BLOOD GAS HCO3 19.8 meq/L (22-26); ARTERIAL BLOOD GAS PCO2 29.7 mmHg (35-45); ARTERIAL BLOOD GAS pH 7.44 (7.35-7.45)
[2020-05-18 05:34] LABS: CALCIUM 8.4 mg/dL (8.4-10.2); CREATININE, serum 0.63 (0.52-1.25); MAGNESIUM 2.8 mg/dL (1.6-2.3); PHOSPHOROUS 1.8 mg/dL (2.5-4.5); POTASSIUM 3.5 mmol/L (3.4-5.0)
[2020-05-18 06:04] LABS: ANISOCYTOSIS 1+; BAND 5 % (0-10); EOSINOPHIL 1 % (0-4); LYMPHOCYTE 5 % (20.0-51.0); METAMYELOCYTE 1 % (0-0); MYELOCYTE 2 % (0-0); NEUTROPHILS 86 % (42.0-75.2); NUCLEATED RED BLOOD CELL 1 (0-6)
[2020-05-18 06:05] LABS: OVALOCYTES 1+; PLATELET ESTIMATE DECREASED (NORMAL)
--- NOTE | 2020-05-18 07:00 | NUR ---
PT neuro status remains the same; does not follow commands or track, pupils unequal, does not move extremities. PT will occasionally open eyes to physical stimulus (turning, sternal rub) and rub gums against ET tube.
[2020-05-18 12:37] LABS: COLLECTION METHOD CLEAN CATCH
[2020-05-18 12:43] LABS: PH 6 (5-8); SQUAMOUS EPITHELIAL 0-2 /hpf; URINE APPEARANCE Clear; URINE BACTERIA None Seen /hpf; URINE BILIRUBIN Negative (NEGATIVE); URINE BLOOD Negative (NEGATIVE); URINE COLOR Straw; URINE GLUCOSE Negative (NEGATIVE); URINE KETONE Negative (NEGATIVE); URINE LEUKOCYTE ESTERASE Negative (NEGATIVE); URINE NITRATE Negative (NEGATIVE); URINE PROTEIN(semi-quant) Negative (NEGATIVE); URINE RBC 0-2 /hpf; URINE UROBILINOGEN Negative (NEGATIVE); URINE WBC 0-2 /hpf
--- NOTE | 2020-05-18 13:31 | NUR ---
Spoke with Dr. Brown, no need for LP. Cancel at this time
[2020-05-18 14:16] LABS: CLOSTRIDIUM DIFF A/B NEG; CLOSTRIDIUM DIFF A/B INTERP No C.diff present
--- NOTE | 2020-05-18 17:00 | NUR ---
No sedation vacation at this time DT tachycardia and tachypnea; sedation increased
--- NOTE | 2020-05-18 19:30 | NUR ---
Received report from BONNIE Hall.
--- NOTE | 2020-05-18 19:40 | NUR ---
Contacted CHELSI regarding patient's tachycardia of mid-high 130s and tachypnea into 40s. Patient's BPs remain within normal limits and patient continues to be minimally responsive to verbal and painful stimuli. Received orders for STAT CBC, BMP, and ABG. To follow up with Dr. Glez once labs have resulted. At 2028, notified Dr. Glez of all lab results. Received orders to resume fentanyl drip. To continue to monitor.
[2020-05-18 19:52] LABS: ARTERIAL BLD GAS O2 SATURATION 97.1 % (92-100); ARTERIAL BLD GAS TCO2 CT 21.4; ARTERIAL BLOOD GAS BASE EXCESS -1.9 (-2-2); ARTERIAL BLOOD GAS HCO3 20.6 meq/L (22-26); ARTERIAL BLOOD GAS PCO2 28.3 mmHg (35-45); ARTERIAL BLOOD GAS PO2 86.1 mmHg (80-100); ARTERIAL BLOOD GAS pH 7.48 (7.35-7.45)
[2020-05-18 20:01] LABS: BASO # 0.2 (0.0-0.2); BASO % 0.5 % (0.0-2.0); EOS # 0.2 (0.0-0.7); EOS % 0.5 % (0-4.0); GRAN # 28.1 (1.4-6.5); GRAN % 85.6 % (42.2-75.2); LYMPH % 6.2 % (20.0-51.0); MEAN CELL VOLUME 102 fl (80.0-100.0); MEAN CORPUSCULAR HEMOGLOBIN 32 pg (27.0-31.0); MEAN CORPUSCULAR HGB CONC 32 g/dl (33.0-37.0); MEAN PLATELET VOLUME 11.3 fl (7.4-10.4); MONO # 0.7 (0.1-0.6); PLATELET COUNT 135 K/mm3 (130-400)
[2020-05-18 20:07] LABS: CALCIUM 8.1 mg/dL (8.4-10.2); CREATININE, serum 0.71 (0.52-1.25); MAGNESIUM 2.6 mg/dL (1.6-2.3); POTASSIUM 4.3 mmol/L (3.4-5.0)
[2020-05-18 20:13] LABS: HEMATOCRIT 34.8 % (37.0-47.0)
[2020-05-18 20:27] LABS: BAND 3 % (0-10); LYMPHOCYTE 5 % (20.0-51.0); METAMYELOCYTE 2 % (0-0); NEUTROPHILS 88 % (42.0-75.2); NUCLEATED RED BLOOD CELL 1 (0-6); PLATELET ESTIMATE NORMAL (NORMAL)
[2020-05-18 20:28] LABS: TARGET CELLS 1+
[2020-05-19] VITALS (675 sets, daily range): BP systolic 93–110; BP diastolic 64–72; PULSE 102–134; TEMP 97.5–98.8; O2SAT 89–100
[2020-05-19 05:12] LABS: MEAN CELL VOLUME 101 fl (80.0-100.0); MEAN CORPUSCULAR HGB CONC 32 g/dl (33.0-37.0); MEAN PLATELET VOLUME 11.7 fl (7.4-10.4); PLATELET COUNT 127 K/mm3 (130-400); RED BLOOD COUNT 3.05 M/mm3 (4.10-5.30)
[2020-05-19 05:13] LABS: HEMOGLOBIN 9.8 g/dl (12.5-16.0); MEAN CORPUSCULAR HEMOGLOBIN 32 pg (27.0-31.0)
[2020-05-19 05:14] LABS: HEMATOCRIT 30.9 % (37.0-47.0)
[2020-05-19 05:18] LABS: ARTERIAL BLD GAS O2 SATURATION 96.3 % (92-100); ARTERIAL BLD GAS TCO2 CT 21.6; ARTERIAL BLOOD GAS BASE EXCESS -2.7 (-2-2); ARTERIAL BLOOD GAS HCO3 20.6 meq/L (22-26); ARTERIAL BLOOD GAS PCO2 30.9 mmHg (35-45); ARTERIAL BLOOD GAS PO2 82.4 mmHg (80-100); ARTERIAL BLOOD GAS pH 7.44 (7.35-7.45)
[2020-05-19 05:23] LABS: CREATININE, serum 0.62 (0.52-1.25); MAGNESIUM 2.7 mg/dL (1.6-2.3); POTASSIUM 3.8 mmol/L (3.4-5.0)
[2020-05-19 05:33] LABS: BAND 9 % (0-10); EOSINOPHIL 1 % (0-4); LYMPHOCYTE 3 % (20.0-51.0); NEUTROPHILS 87 % (42.0-75.2); PLATELET ESTIMATE DECREASED (NORMAL)
[2020-05-19 05:34] LABS: ANISOCYTOSIS 1+; HYPOCHROMIA 2+
[2020-05-19 05:39] LABS: TARGET CELLS 1+
--- NOTE | 2020-05-19 08:00 | NUR ---
Shift assessment complete at this time. Unable to review plan of care at bedside with patient r/t unresponsivness to stimulation. Vitals stable at this time. CPOT score 0. Bed in low position. Will continue to monitor.
[2020-05-19 11:32] LABS: ALBUMIN 2.2 gm/dL (3.5-5.0); TOTAL PROTEIN 4.8 gm/dL (6.4-8.2)
[2020-05-19 11:40] LABS: BILIRUBIN UNCONJUGATED 0.5 mg/dL (0.0-1.1); BILIRUBIN,TOTAL 0.5 mg/dL (0.0-1.0)
--- NOTE | 2020-05-19 12:00 | NUR ---
Shift reassessment complete at this time. No changes from previous assessment noted. All sedation currently off at this time. No responses from patient noted on neurological examination. Vitals stable at this time. Bed in low position.
--- NOTE | 2020-05-19 14:21 | NUR ---
BONNIE Lara received a call from patient's family. They were able to find a copy of patient's DPOA paperwork that labels Luis F Salinas as primary DPOA. Ying is listed as an alternate agent. Advanced Directives list patient as a DNR; however, Luis F did not wish to alter Full Code status at this time. A copy of AD was placed on patient chart by RN. Social work will continue to follow.
--- NOTE | 2020-05-19 16:00 | NUR ---
Shift reassessment complete at this time. No changes from previous assessment noted. All sedation still currently off. Pt does not respond to any stimulation but does nonpurposefully open eyes spontaneously and grimaces when oral care is performed. Vitals stable at this time. Bed in low position.
--- NOTE | 2020-05-19 20:00 | NUR ---
PATIENT SQUITED EYES, WHEN BEING SPOKEN TO, ALSO MADE A FROWN WHEN STRAIGHTEN PATIENT'S HEAD, NO OTHER REACTION FOUND DURING ASSESSMENT.
--- NOTE | 2020-05-19 22:30 | NUR ---
PATIENT HAS EYES OPEN WILL FOLLOW WITH PUPILS TO VOICE WITH [employer], LABORED BREATHING AT 40, PULSE INCREASE TO 136, MOVES RIGHT ARM INVOLUNTARY ADMINISTER 50 MCQ OF FENTANYL IV PUSH NO CHANGE, CALLED [facility], WILL BEGIN IV SEDATION AND PAIN RELIEF DRIPS, ABG, CHEST XRAY
[2020-05-19 23:53] LABS: ARTERIAL BLD GAS O2 SATURATION 96.6 % (92-100); ARTERIAL BLD GAS TCO2 CT 19.8; ARTERIAL BLOOD GAS BASE EXCESS -3.3 (-2-2); ARTERIAL BLOOD GAS PO2 82.6 mmHg (80-100); ARTERIAL BLOOD GAS pH 7.48 (7.35-7.45)
[2020-05-20] VITALS (713 sets, daily range): BP systolic 97–133; BP diastolic 54–90; PULSE 106–129; TEMP 98.7–99.4; O2SAT 54–100
--- NOTE | 2020-05-20 02:41 | NUR ---
PATIENT RESIDUALS HAVE 70 OR LESS TONIGHT INCREASED FEED TO 20 MLS/HR. WILL CONTINUE TO OBSERVE
--- NOTE | 2020-05-20 04:11 | NUR ---
AT THIS TIME DURING ASSESSMENT PATIENT WOULD MOVE FEET WHEN PULSE CHECKS BEING PERFORMED PATIENT SQUINTS EYES AND FROWNS WHEN TOUCHING THE PATIENT'S NECK.
[2020-05-20 05:12] LABS: ARTERIAL BLD GAS O2 SATURATION 96.1 % (92-100); ARTERIAL BLD GAS TCO2 CT 24.2; ARTERIAL BLOOD GAS BASE EXCESS 0.7 (-2-2); ARTERIAL BLOOD GAS HCO3 23.3 meq/L (22-26); ARTERIAL BLOOD GAS PCO2 30.4 mmHg (35-45); ARTERIAL BLOOD GAS PO2 82.3 mmHg (80-100)
[2020-05-20 05:15] LABS: MEAN CELL VOLUME 104 fl (80.0-100.0); MEAN CORPUSCULAR HGB CONC 32 g/dl (33.0-37.0); MEAN PLATELET VOLUME 11.3 fl (7.4-10.4); PLATELET COUNT 195 K/mm3 (130-400); RED BLOOD COUNT 2.86 M/mm3 (4.10-5.30); REDCELL DISTRIBUTION WIDTH-CV 14.5 % (11.5-14.5)
[2020-05-20 05:18] LABS: HEMATOCRIT 29.6 % (37.0-47.0); HEMOGLOBIN 9.4 g/dl (12.5-16.0); MEAN CORPUSCULAR HEMOGLOBIN 33 pg (27.0-31.0)
[2020-05-20 05:27] LABS: ALBUMIN 2.3 gm/dL (3.5-5.0); BILIRUBIN,TOTAL 0.5 mg/dL (0.0-1.0); CALCIUM 8.3 mg/dL (8.4-10.2); CREATININE, serum 0.7 (0.52-1.25); MAGNESIUM 2.5 mg/dL (1.6-2.3); PHOSPHOROUS 3.8 mg/dL (2.5-4.5); POTASSIUM 4.1 mmol/L (3.4-5.0); TOTAL PROTEIN 5.1 gm/dL (6.4-8.2)
[2020-05-20 05:34] LABS: PRE ALBUMIN 13.9 mg/dL (17.6-36.0)
[2020-05-20 05:35] LABS: BAND 3 % (0-10); EOSINOPHIL 1 % (0-4); LYMPHOCYTE 4 % (20.0-51.0); NEUTROPHILS 89 % (42.0-75.2); PLATELET ESTIMATE NORMAL (NORMAL)
[2020-05-20 05:36] LABS: HYPOCHROMIA 2+; SCHISTOCYTES 1+
[2020-05-20 05:37] LABS: ANISOCYTOSIS 1+
--- NOTE | 2020-05-20 05:49 | NUR ---
PATIENT WILL FLEX BOTH ARMS TOGETHER OR SEPARATLY, MOVES HEAD LEFT RIGHT ALSO HOLDS HEAD UPRIGHT
--- NOTE | 2020-05-20 09:33 | NUR ---
Vibration Engineer staffed with the patient's nurse and Dr. Hurtado. The patient to have trach and peg placed Wednesday of this week. LTACH referral needs to be sent. Referral sent to [facility] with [facility].
--- NOTE | 2020-05-20 17:07 | NUR ---
No sedation vacation at this time. Had to increase sedation twice today and patient now resting comfortably.
[2020-05-21] VITALS (817 sets, daily range): BP systolic 89–114; BP diastolic 55–65; PULSE 92–120; TEMP 98.5–102.4; O2SAT 96–100
[2020-05-21 05:26] LABS: BASO % 0.2 % (0.0-2.0); EOS # 0.4 (0.0-0.7); EOS % 1.7 % (0-4.0); GRAN # 18.6 (1.4-6.5); GRAN % 85.7 % (42.2-75.2); LYMPH # 1.4 (1.2-3.4); LYMPH % 6.3 % (20.0-51.0); MEAN CELL VOLUME 106 fl (80.0-100.0); MEAN CORPUSCULAR HGB CONC 31 g/dl (33.0-37.0); MEAN PLATELET VOLUME 10.7 fl (7.4-10.4); MONO # 1.1 (0.1-0.6); MONO % 4.8 % (1.7-9.3); PLATELET COUNT 253 K/mm3 (130-400); RED BLOOD COUNT 2.52 M/mm3 (4.10-5.30); REDCELL DISTRIBUTION WIDTH-CV 14.6 % (11.5-14.5)
[2020-05-21 05:27] LABS: HEMATOCRIT 26.7 % (37.0-47.0); HEMOGLOBIN 8.2 g/dl (12.5-16.0); MEAN CORPUSCULAR HEMOGLOBIN 33 pg (27.0-31.0)
[2020-05-21 05:29] LABS: ARTERIAL BLD GAS O2 SATURATION 97.9 % (92-100); ARTERIAL BLD GAS TCO2 CT 22.3; ARTERIAL BLOOD GAS BASE EXCESS -3.4 (-2-2); ARTERIAL BLOOD GAS HCO3 21.2 meq/L (22-26); ARTERIAL BLOOD GAS PCO2 36.1 mmHg (35-45); ARTERIAL BLOOD GAS pH 7.39 (7.35-7.45)
[2020-05-21 05:37] LABS: CALCIUM 8.2 mg/dL (8.4-10.2); CREATININE, serum 0.73 (0.52-1.25); MAGNESIUM 2.5 mg/dL (1.6-2.3); PHOSPHOROUS 4.2 mg/dL (2.5-4.5); POTASSIUM 3.6 mmol/L (3.4-5.0)
--- NOTE | 2020-05-21 07:00 | NUR ---
PULSE WOULD ELEVATE AND PATIENT BREATHS OVER VENT, MORE SEDATION NEEDS
--- NOTE | 2020-05-21 08:00 | NUR ---
SEDATION STOPPED PER TO ASSESS NEURO STATUS. PT OPENS EYES TO TOUCH BUT NOT TO VOICE. PT DOES NOT TRACK OR FOLLOW COMMANDS. PT BECOMMING RESTLESS. SEDATTION RESTARTED.
--- NOTE | 2020-05-21 10:43 | NUR ---
Patient is slotted to DC to [facility] per [facility] on 05/23/20. Will continue follow.
--- NOTE | 2020-05-21 11:55 | NUR ---
'S OFFICE CALLED AND STATED PLAN FOR TRACH TOMORROW AT 1200. THIS RN CALLED AND NOTIFIED HIM OF TIME.
--- NOTE | 2020-05-21 12:30 | NUR ---
RIGHT CHEST CENTRAL LINE DC'D PER . GAUZE AND TEGADERM APPLIED. WILL CONTINUE TO MONITOR
--- NOTE | 2020-05-21 17:05 | NUR ---
Pt placed on sedation vacation earlier in shift per request. Pt opens eyes to pain/touch only. Pt does not follow commands. Pt becomes restless and tachypnic without sedation. Will continue to monitor.
--- NOTE | 2020-05-21 19:00 | NUR ---
Received report from BONNIE Thompson.
--- NOTE | 2020-05-21 19:01 | NUR ---
PT HAS A TEMP OF 102 AND TACHY AT 120. OTHER VSS. TYLENOL GIVEN AND VERSED INCREASED. WILL ENDORSE TO FOLLOWING RN.
--- NOTE | 2020-05-21 19:03 | NUR ---
MADHURI LAURA ASKED US TO GIVE PT'S HOUSE KEYS TO MOTHER LUIS. WERE GIVEN TO HER IN THE ED.
--- NOTE | 2020-05-21 23:30 | NUR ---
Patient's axillary temp at 1945 102.4 F. Reviewed patient's EMAR; patient had tylenol administered at 1845. Temperature rechecked at 2034; patient's temp 102.8 F. Ice packs applied to patients armpits and groin, alternating 20 minutes on/off. Temperature began trending down; 100.7 F at 2130. Temp at 2330 check 99 F.
[2020-05-22] VITALS (655 sets, daily range): BP systolic 73–110; BP diastolic 44–64; PULSE 89–101; TEMP 97.5–99.5; O2SAT 89–100
--- NOTE | 2020-05-22 02:07 | NUR ---
Patient's vent began frequently alarming "low minute ventilation," at approximately 2300. This RN promptly notified RT for assistance. RT, Yung, and RT Maricel, both assessed ventilator, determining patient had a cuff leak. All patient vitals within normal limits. RTs were able to temporarily fix the leak, however, vent continued to alarm, progressing to a "circuit disconnect," alarm and "low mandatory tidal volume," alarm, both of which were alarming in 2-5 minute intervals. Patient's oxygen saturation maintained 97-99%. Anesthesiologist, David Neri, paged at 0132. Call back received at 0135. It was decided patient's ET tube needed replaced. Anesthesiologist arrived at 0145, with ET tube exchange beginning at 0154, finishing at 0200. ET tube replaced with 7.5 tube, measuring 22in at the lip. Breath sounds auscultated bilaterally and a chest xray was obtained to confirm placement. Ventilator currently working appropriately; no alarms sounding. Patient tolerated procedure well. Will continue to [facility].
--- NOTE | 2020-05-22 04:07 | NUR ---
CALLED AT 2300 BY RNMICHAEL ABOUT VENT ALARMING AND SAYING LOW MINUTE VENTILATION. WENT TO ASSESS PT WITH RT SHEBLY. COULD HEAR GURGLING WOULDN'T RESOLVE WITH ADDED AIR TO CUFF. HAD A TEMPOROARY FIX FOR CUFF. AFTER ABOUT AN HOUR VENTILATOR WOULD BEEP EVERY 2 TO 5 MINUTES WITH LOW MANDATORY VT AND SAY THAT CIRCUT WAS DISCONNECTED. IT WAS DECIDED THAT THIS RT WOULD CALL ANESTHESIA TO REPLACE THE ETT. PAGED MORRIS MEYER AT 0132, WAS CALLED BACK AT 0135. DISCUSSED PROBLEM AND HOW THIS WAS A PATIENT SAFTEY ISSUE AND TUBE NEEDED TO BE EXCHANGED. MORRIS MEYER WAS IN ICU AT 0145 AND ETT CHANGE BEGAN AT 0154 AND FINISHED AT 0200. TUBE WAS EXCHANGED FOR A 7.5 THAT WAS PLACED AT 22 AND THE LIP. THERE WERE BILATERAL BREATH SOUNDS, EQUAL AND CLEAR CHEST RISE AND A CHEST XRAY WAS OBTAINED. UPON CHANGING OF TUBE THE VENTILATOR WENT BACK TO GETTING NORMAL VOLUMES AND MINUTE VENTILATION VALUES. VITALS WERE ALWAYS WITHIN NORMAL LIMITS NO DISTRESS NOTED FROM PATIENT. WILL CONTINUE TO MONITOR AND ASSESS
[2020-05-22 05:38] LABS: MEAN CELL VOLUME 105 fl (80.0-100.0); MEAN CORPUSCULAR HGB CONC 30 g/dl (33.0-37.0); MEAN PLATELET VOLUME 10.6 fl (7.4-10.4); PLATELET COUNT 327 K/mm3 (130-400); RED BLOOD COUNT 2.57 M/mm3 (4.10-5.30); REDCELL DISTRIBUTION WIDTH-CV 14.6 % (11.5-14.5)
[2020-05-22 05:50] LABS: CALCIUM 8.1 mg/dL (8.4-10.2); CREATININE, serum 0.66 (0.52-1.25); MAGNESIUM 2.4 mg/dL (1.6-2.3); PHOSPHOROUS 4.2 mg/dL (2.5-4.5); POTASSIUM 3.5 mmol/L (3.4-5.0)
[2020-05-22 05:59] LABS: ARTERIAL BLD GAS O2 SATURATION 98.1 % (92-100); ARTERIAL BLOOD GAS BASE EXCESS -1.2 (-2-2); ARTERIAL BLOOD GAS HCO3 23.8 meq/L (22-26); ARTERIAL BLOOD GAS PCO2 40.7 mmHg (35-45); ARTERIAL BLOOD GAS PO2 114.4 mmHg (80-100); ARTERIAL BLOOD GAS pH 7.38 (7.35-7.45)
[2020-05-22 06:04] LABS: HEMATOCRIT 27.1 % (37.0-47.0); HEMOGLOBIN 8.2 g/dl (12.5-16.0); MEAN CORPUSCULAR HEMOGLOBIN 32 pg (27.0-31.0)
--- NOTE | 2020-05-22 06:15 | NUR ---
Patient experiencing soft BPs of 70s/50s with MAPs < 65. Notified CHELSI nurseSerena, who passed this information on to Dr. Rebollar. Received orders for a one time liter bolus of NS. Will continue to monitor.
[2020-05-22 06:18] LABS: BAND 3 % (0-10); EOSINOPHIL 1 % (0-4); LYMPHOCYTE 4 % (20.0-51.0); NEUTROPHILS 89 % (42.0-75.2)
[2020-05-22 06:19] LABS: HYPOCHROMIA 1+; PLATELET ESTIMATE NORMAL (NORMAL)
--- NOTE | 2020-05-22 07:28 | NUR ---
Report given to BONNIE Ramirez.
--- NOTE | 2020-05-22 09:07 | NUR ---
This am during initial morning assessment PT was tracking with eyes, able to make fist with both hands along with wiggling her toes. On the next assessment with Dr. Hurtado bedside PT would not track or follow commands. Sedation was completely off at this time.
--- NOTE | 2020-05-22 11:39 | NUR ---
PT left to OR for trach placement and peg tube placement.
--- NOTE | 2020-05-22 13:00 | NUR ---
pt back to ICU room 4. All vitals WNL. PT has a 6.0 shiley trach and appears comfortable. Vitals monitored. PT afebrile.
--- NOTE | 2020-05-22 15:49 | NUR ---
PT AT PROCEDURE HAVING TRACH INSERTED.
[2020-05-22 16:54] LABS: COLLECTION METHOD CLEAN CATCH
[2020-05-22 17:03] LABS: MUCOUS Present /lpf; PH 7 (5-8); SQUAMOUS EPITHELIAL 0-2 /hpf; URINE APPEARANCE Clear; URINE BACTERIA None Seen /hpf; URINE BILIRUBIN Negative (NEGATIVE); URINE BLOOD Negative (NEGATIVE); URINE COLOR Yellow; URINE GLUCOSE Negative (NEGATIVE); URINE KETONE Negative (NEGATIVE); URINE LEUKOCYTE ESTERASE Negative (NEGATIVE); URINE NITRATE Negative (NEGATIVE); URINE PROTEIN(semi-quant) 1+ (NEGATIVE)
[2020-05-22 17:43] LABS: CLOSTRIDIUM DIFF A/B NEG; CLOSTRIDIUM DIFF A/B INTERP No C.diff present
--- NOTE | 2020-05-22 19:09 | NUR ---
Report given to BONNIE Worley.
--- NOTE | 2020-05-22 19:10 | NUR ---
Received report from BONNIE Ramirez.
[2020-05-23] VITALS (367 sets, daily range): BP systolic 101–109; BP diastolic 56–67; PULSE 96–103; TEMP 98.9–99.5; O2SAT 92–100
[2020-05-23 05:53] LABS: ARTERIAL BLD GAS O2 SATURATION 96.6 % (92-100); ARTERIAL BLD GAS TCO2 CT 24.5; ARTERIAL BLOOD GAS BASE EXCESS -0.4 (-2-2); ARTERIAL BLOOD GAS HCO3 23.5 meq/L (22-26); ARTERIAL BLOOD GAS PCO2 34.3 mmHg (35-45); ARTERIAL BLOOD GAS PO2 86.9 mmHg (80-100); ARTERIAL BLOOD GAS pH 7.45 (7.35-7.45)
--- NOTE | 2020-05-23 06:19 | NUR ---
PT GOING TO [facility] TODAY AND WILL NOT HAVE A WEAN TRIAL DONE. PT ON DOCUMENTED SETTINGS ANANDA WELL WITH NO DISTRESS NOTED AT THIS TIME
[2020-05-23 06:50] LABS: BASO % 0.2 % (0.0-2.0); EOS # 0.2 (0.0-0.7); EOS % 0.8 % (0-4.0); GRAN # 15.8 (1.4-6.5); GRAN % 87.8 % (42.2-75.2); HEMATOCRIT 25.3 % (37.0-47.0); HEMOGLOBIN 7.8 g/dl (12.5-16.0); LYMPH # 1.1 (1.2-3.4); MEAN CELL VOLUME 104 fl (80.0-100.0); MEAN CORPUSCULAR HEMOGLOBIN 32 pg (27.0-31.0); MEAN CORPUSCULAR HGB CONC 31 g/dl (33.0-37.0); MEAN PLATELET VOLUME 10.4 fl (7.4-10.4); MONO # 0.8 (0.1-0.6); MONO % 4.3 % (1.7-9.3); PLATELET COUNT 378 K/mm3 (130-400); RED BLOOD COUNT 2.43 M/mm3 (4.10-5.30); REDCELL DISTRIBUTION WIDTH-CV 14.2 % (11.5-14.5)
[2020-05-23 06:56] LABS: CALCIUM 8.4 mg/dL (8.4-10.2); CREATININE, serum 0.64 (0.52-1.25); POTASSIUM 3.3 mmol/L (3.4-5.0)
--- NOTE | 2020-05-23 08:47 | NUR ---
Remedial Project Manager faxed updates to [facility] with [facility] then attempted to contact him regarding bed status, left message.
[2020-05-23] MEDS ORDERED: MERREM VIA500 MG/VIA IV (09:16)
[2020-05-23] MEDS ORDERED: DIFLUCAN 2200 MG/100 IV (09:17)
[2020-05-23] MEDS ORDERED: ZOVIRAX INJ V1000 MG IV (09:18)
[2020-05-23] MEDS ORDERED: PROTONIX 40MG T40 MG PO (09:19)
[2020-05-23] MEDS ORDERED: ZOFRAN INJ4 MG/2 ML IV (09:19)
[2020-05-23] MEDS ORDERED: PEPCID 20M20 MG/2 ML IV (09:19)
[2020-05-23] MEDS ORDERED: NOVLOG SQ (09:19)
[2020-05-23] MEDS ORDERED: ROMAZICON 00.1 MG/ML IV (09:20)
[2020-05-23] MEDS ORDERED: BUMEX 1MG TA1 MG/TA1 PO (09:20)
[2020-05-23] MEDS ORDERED: NARCAN .4MG0.4 MG/ML IV (09:21)
[2020-05-23] MEDS ORDERED: VERSED 2MG/2M1 MG/ML IV (09:21)
[2020-05-23] MEDS ORDERED: FENT 5ML50 MCG/ML IV (09:22)
[2020-05-23] MEDS ORDERED: TYLENOL 325MG325 MG PO (09:22)
[2020-05-23] MEDS ORDERED: RT Albuterol HFA MDI IH (09:23)
[2020-05-23] MEDS ORDERED: IPRATROPIUM BROM3 M1 IH (09:23)
[2020-05-23] MEDS ORDERED: LOVENOX 4040 MG/0.4 SQ (09:23)
--- NOTE | 2020-05-23 10:30 | NUR ---
A copy of the DPOA-HC was provided. Upon review of the DPOA-HC form it is not signed by the patient, therefore not valid. SW contacted the patient's son, Luis F to discuss this matter. He does not know where the patient had the paperwork notarized but understood that he and his sister, Ying would have to be the decision makers, together. LYDIA collaborated the above information with the patient's nurse. The patient is to discharge today, 05/23 to [facility]. The patient will be transported by [facility], pharmacy picking technician at 1300. The team was in agreeance. LYDIA faxed discharge orders. LYDIA contacted Luis F and Ying, both were in agreeance with the above discharge plan. There are no additional needs.
--- NOTE | 2020-05-23 11:58 | NUR ---
REPORT GIVEN VIA PHONE TO [facility]. ALL QUESTIONS ANSWERED.
--- NOTE | 2020-05-23 13:56 | NUR ---
PT DISCHARGE TO [facility]. REPORT GIVEN TO EMS. PT TRANSFERED TO THEIR VENT WITH NOT PROBLEMS. PT'S VSS. OBTURATOR AND BELONGINGS GIVEN TO EMS FOR TRANSPORT.
== END 2020-05-23 13:40 | disposition short-term general hospital (02) | DRG 4 ==
LOC: SDCO 09:28 → SURG 09:28 → SDCO 11:00 → SURG 18:34 → SDCO 18:35 → SURG 18:36 → ICU 18:36
PROVIDERS: Hospitalist; Internal Medicine; Internal Medicine Cardiovascular Disease; Internal Medicine Critical Care Medicine; Internal Medicine Gastroenterology; Internal Medicine Pulmonary Disease; Physician Assistant; Psychiatry & Neurology Neurology; Student in an Organized Health Care Education/Training Program; ADMIT Student in an Organized Health Care Education/Training Program
PROC: 0F9C8ZZ Drainage of Ampulla of Vater, Via Natural or Artificial Opening Endoscopic (ICD-10-PCS; 2020-05-10)
PROC: 0B110F4 Bypass Trachea to Cutaneous with Tracheostomy Device, Open Approach (ICD-10-PCS; principal; 2020-05-10 11:00)
PROC: 5A1955Z Respiratory Ventilation, Greater than 96 Consecutive Hours (ICD-10-PCS; 2020-05-12)
PROC: 0BH17EZ Insertion of Endotracheal Airway into Trachea, Via Natural or Artificial Opening (ICD-10-PCS; 2020-05-12)
PROC: 02HV33Z Insertion of Infusion Device into Superior Vena Cava, Percutaneous Approach (ICD-10-PCS; 2020-05-20)
DX: R10.11 Right upper quadrant pain (principal); K85.90 Acute pancreatitis without necrosis or infection, unspecified; A41.9 Sepsis, unspecified organism; G92 Toxic encephalopathy; J96.01 Acute respiratory failure with hypoxia; J18.9 Pneumonia, unspecified organism; R65.21 Severe sepsis with septic shock; E87.2 Acidosis; K31.5 Obstruction of duodenum; E87.3 Alkalosis; D69.6 Thrombocytopenia, unspecified; F41.9 Anxiety disorder, unspecified; K21.9 Gastro-esophageal reflux disease without esophagitis; G47.00 Insomnia, unspecified; F31.9 Bipolar disorder, unspecified; J44.9 Chronic obstructive pulmonary disease, unspecified; G89.29 Other chronic pain; M54.9 Dorsalgia, unspecified; F17.210 Nicotine dependence, cigarettes, uncomplicated; E87.6 Hypokalemia; N32.81 Overactive bladder; E83.42 Hypomagnesemia; R33.9 Retention of urine, unspecified; K83.4 Spasm of sphincter of Oddi; K31.9 Disease of stomach and duodenum, unspecified; Z98.51 Tubal ligation status; Z90.49 Acquired absence of other specified parts of digestive tract; Z90.711 Acquired absence of uterus with remaining cervical stump; Z20.828 Contact with and (suspected) exposure to other viral communicable diseases; E16.2 Hypoglycemia, unspecified; N83.202 Unspecified ovarian cyst, left side
CPT/HCPCS: 99223-AI; 99233-AI; 99239; C1751; C1769; G0378; G0379; J0133; J1170; J1450; J1650; J1940; J2060; J2185; J2250; J2270; J2405; J2704; J2920; J3010; J3370; J3475; J3480; J7030; J7040; J7050; J7060; J7120; Q9967

== ENCOUNTER 2020-08-11 14:34 | Emergency (ER) | payer MEDICARE, MEDICAID ==
[2005-12-31 18:10] VITALS: BP 97/63
[~2020-08-11] VITALS: Ht 154.9 cm; Wt 62.3 kg
[~2020-08-11 14:34] MED LIST changes: +BUMEX 1MG TA1 MG/TA1 PO; +DIFLUCAN 2200 MG/100 IV; +FENT 5ML50 MCG/ML IV; +IPRATROPIUM BROM3 M1 IH; +LOVENOX 4040 MG/0.4 SQ; +MERREM VIA500 MG/VIA IV; +NARCAN .4MG0.4 MG/ML IV; +NOVLOG SQ; +PEPCID 20M20 MG/2 ML IV; +ROMAZICON 00.1 MG/ML IV; +RT Albuterol HFA MDI IH; +TYLENOL 325MG325 MG PO; +VERSED 2MG/2M1 MG/ML IV; +ZOFRAN INJ4 MG/2 ML IV; +ZOVIRAX INJ V1000 MG IV
[2020-08-11 15:37] VITALS: BP 105/64; PULSE 76; TEMP 97.6
== END 2020-08-11 15:38 | disposition home or self-care (01) ==
LOC: COL.ER 14:34
DX: R10.9 Unspecified abdominal pain (principal); I25.10 Atherosclerotic heart disease of native coronary artery without angina pectoris; J44.9 Chronic obstructive pulmonary disease, unspecified; F31.9 Bipolar disorder, unspecified; K21.9 Gastro-esophageal reflux disease without esophagitis; E78.5 Hyperlipidemia, unspecified; G89.29 Other chronic pain; M54.9 Dorsalgia, unspecified; F17.290 Nicotine dependence, other tobacco product, uncomplicated; F17.210 Nicotine dependence, cigarettes, uncomplicated; Z88.8 Allergy status to other drugs, medicaments and biological substances; Z88.1 Allergy status to other antibiotic agents; Z79.4 Long term (current) use of insulin; Z79.02 Long term (current) use of antithrombotics/antiplatelets; Z95.5 Presence of coronary angioplasty implant and graft

== ENCOUNTER 2020-08-22 07:41 | Observation (INO) | payer MEDICARE, MEDICAID ==
[~2020-08-22] VITALS: Ht 154.9 cm; Wt 61.4 kg
[2020-08-22 08:23] LABS: BASO % 0.3 % (0.0-2.0); EOS # 0.3 (0.0-0.7); EOS % 4.8 % (0-4.0); GRAN % 72.3 % (42.2-75.2); HEMATOCRIT 45.1 % (37.0-47.0); HEMOGLOBIN 13.6 g/dl (12.5-16.0); LYMPH # 1.2 (1.2-3.4); MEAN CELL VOLUME 99 fl (80.0-100.0); MEAN CORPUSCULAR HEMOGLOBIN 30 pg (27.0-31.0); MEAN CORPUSCULAR HGB CONC 30 g/dl (33.0-37.0); MEAN PLATELET VOLUME 8.5 fl (7.4-10.4); MONO # 0.4 (0.1-0.6); MONO % 5.5 % (1.7-9.3); PLATELET COUNT 246 K/mm3 (130-400); RED BLOOD COUNT 4.54 M/mm3 (4.10-5.30); REDCELL DISTRIBUTION WIDTH-CV 13.1 % (11.5-14.5)
[2020-08-22 08:32] LABS: ALBUMIN 4.3 gm/dL (3.5-5.0); BILIRUBIN,TOTAL 0.3 mg/dL (0.0-1.0); CALCIUM 10.2 mg/dL (8.4-10.2); CREATININE, serum 1.07 (0.52-1.25); POTASSIUM 3.5 mmol/L (3.4-5.0); TOTAL PROTEIN 7.8 gm/dL (6.4-8.2)
[2020-08-22 09:03] LABS: TSH w REFLEX 2.61 uIU/mL (0.465-4.680)
[2020-08-22 10:03] LABS: TRICYCLIC ANTIDEPRESS URINE NEGATIVE
--- NOTE | 2020-08-22 13:15 | NUR ---
PATIENT ARRIVED TO ROOM 310 VIA CART FROM ED. PATIENT SETTELED AND ORIENTED TO ROOM. ADMISSION ASSESSMENTS COMPLETE. FALL RISK PRECAUTIONS IN PLACE. CALL LIGHT WITHIN REACH. BED ALARM ON.
[2020-08-22] MEDS ORDERED: CELEBREX 200MG200 MG PO (14:18)
[2020-08-22] MEDS ORDERED: CYMBALTA 30MG30 MG PO (14:20)
[2020-08-22] MEDS ORDERED: ROXICODONE 55 MG/TAB PO (14:21)
[2020-08-22] MEDS ORDERED: OXYCONTIN 10MG10 MG PO (14:22)
[2020-08-22] MEDS ORDERED: OXYCONTIN15 MG PO (14:24)
[2020-08-22] MEDS ORDERED: NIZORAL CR 30GM TOP (14:26)
[2020-08-22] MEDS ORDERED: VALISONE OI 15GM TP (14:29)
[2020-08-22] MEDS ORDERED: ATARAX 25MG25 MG/TAB PO (14:31)
[2020-08-22] MEDS ORDERED: REMERON 15M15 MG/TA1 PO (14:33)
[2020-08-22] MEDS ORDERED: UROCIT-K 1010 MEQ PO (14:35)
[2020-08-22] MEDS ORDERED: HYTRIN 5MG C5 MG/CAP PO (14:36)
[2020-08-22] MEDS ORDERED: GEODON60 MG PO (14:38)
[2020-08-22] MEDS ORDERED: ATIVAN 0.50.5 MG/TAB PO (14:40)
[2020-08-22] MEDS ORDERED: DAZIDOX10 MG PO (14:42)
--- NOTE | 2020-08-22 14:49 | NUR ---
MEDICATION LIST REVIEWED WITH FAXED MED LIST FROM [facility]. PATIENT STATES THAT SHE DOES NOT KNOW WHAT MEDICATIONS SHE IS TAKING. AWARE OF PATIENT ARRIVAL TO ROOM 310. AWAITING PHYSICIAN ORDERS.
--- NOTE | 2020-08-22 15:03 | NUR ---
GALO MARQUIS CALLED AND NOTIFIED OF PATIENT ARRIVAL TO UNIT AND COMPLETED ADMISSION ASSESSMENTS.
--- NOTE | 2020-08-22 15:17 | NUR ---
CARDIOPULMONARY CALLED AND NOTIFIED OF EKG ORDERS.
[2020-08-22 16:44] VITALS: BP 99/59; PULSE 72; TEMP 98
--- NOTE | 2020-08-22 17:50 | NUR ---
PATIENT HAD LARGE LIQUID BM IN BED WILSON. RUBBER FLAP TUBER MACHINE OPERATOR CALLED NURSE INTO ROOM. 10 WHOLE WHITE OBLONG PILLS IDENTIFIED IN BOWEL CONTENT. NOTIFIED, PHYSICIAN STATES THAT THE PATIENT HAD A BOWEL MOVEMENT IN ED WITH PILLS FOUND IN FECAL CONTENT. NO NEW ORDERS AT THIS TIME.
[2020-08-22 19:18] VITALS: BP 107/68; PULSE 72; TEMP 98.7
[2020-08-22 22:44] VITALS: BP 124/74; PULSE 73; TEMP 98.5
--- NOTE | 2020-08-23 05:32 | NUR ---
PATIENT HAS RESTED QUIETLY IN BED SINCE RECEIVING THE MELATONIN AND TYLENOL. PATIENT APOLOGIZED FOR HOW SHE BEHAVED EARLIER IN THE NIGHT. SHE STATED SHE JUST WANTS TO GO BECAUSE SHE JUST GOT OUT OF THE HOSPITAL 2 WEEKS AGO AFTER BEING IN THE HOSPITAL/[facility]/REHAB FOR 3 MONTHS. EDUCATED PATIENT ON THE IMPORTANCE OF FOLLOWING THE DR.'S ORDERS AND TAKING HER MEDICATION PRESCRIBED BY THE DR.'S. PATIENT VERBALIZED UNDERSTANDING.
[2020-08-23 08:15] VITALS: BP 115/58; PULSE 58; TEMP 98
[2020-08-23 10:00] VITALS: BP 114/76; PULSE 74; TEMP 98.3
--- NOTE | 2020-08-23 10:18 | NUR ---
Initial visit; Patient using telephone, Shaper Set Up Operator let patient know of her availability.
--- NOTE | 2020-08-23 10:45 | NUR ---
PATIENT ALERT & ORIENTED X4. VITAL SIGNS STABLE. DENIES N/V AT THIS TIME. DENIES PAIN AT THIS TIME. PATIENT ADMITTED WITH FALLS. IV RIGHT AC WITH NS @ 125 ML/HR AND NO REDNESS, DRAINGE, OR EDEMA. ALL ASSESSMENTS WNL. WILL CONTINUE TO MONITOR. FALL PRECAUTIONS IN PLACE AND PATIENT EDUCATED TO CALL WHEN NEEDING ASSISTANCE.
--- NOTE | 2020-08-23 12:50 | NUR ---
UPON ENTRY TO THE ROOM THE PATIENT IS RESTLESS AND SHAKING HER LEGS IN BED. PATIENT STATES THAT SHE'S GOING TO TRY AND BE NICE BUT BLUNT, I NEED MY PAIN MEDS BECAUSE IM GOING THROUGH WITHDRAWALS. PATIENT EDUCATED THAT HER NARCOTIC MEDICATIONS ARE CURRENTLY ON HOLD DUE TO HER BEING OVER MEDICATED. LUNCH TRAY ARRIVED TO ROOM WHILE THIS NURSE WAS PRESENT. PATIENT SET UP FOR LUNCH. GALO MARQUIS CALLED AND NOTIFIED THAT THE PATIENT IS IN PAIN AND IS READY TO DISCHARGE AFTER EATING HER LUNCH.
--- NOTE | 2020-08-23 13:06 | NUR ---
The patient's RN transferred SW a phone call from the patient's ex-life partner, Rodrigo Kendall (ph#[phone]). Rodrigo expressed his concerns for the patient. He reports that he believes the patient is being over medicated and thinks she could benefit from SNF again. He states that she went to [facility] upon her stay at [facility]. LYDIA notified the clinical team of his concerns. LYDIA attended clinical rounds. The patient is ready to d/c today. LYDIA met with the patient to discuss discharge plan. The patient lives alone in [place]. She states that Rodrigo and her youngest son, Elieser, also live in [place]. She reports needing some assistance with bathing and does not have any DME. She states that she has home health services that help her bathe, she could not recall the agencies name though. Her PCP is Dr. Robin Ibrahim and she receives her medications from [facility]. She reports no difficulties obtaining her meds. The patient states that she has an appointment with Val Mcgregor at [facility] on 10/29. The patient does not have a DPOA-HC, but she was interested in obtaining a form. LYDIA provided. The patient states that she is not and she has two adult children: Luis F (ph#[phone]) and Ying (ph#[phone]). Her son Elieser is seventeen and is with his father, Rodrigo. PT/OT recommend home. OT recommends home health. The patient plans to return home and would like to resume home health services upon discharge. LYDIA contacted Lyn, chairman ceo, at [facility] to inquire home health agency and update her of the plan. Lyn reports that the patient has [facility]. LYDIA contacted and faxed updates to Gayathri at [facility] . Gayathri confirms that they have her on for services and are able to resume services upon discharge. The patient gave SW permission to contact and update her ex-life partner. LYDIA attempted to contact him to update. LYDIA was unable to leave a voicemail. The patient is to discharge today, 08/23, back home with home health services [place] [facility]/PT/OT from [facility]. LYDIA notified and faxed d/c orders to Gayathri at [facility]. No additional needs at this time.
--- NOTE | 2020-08-23 15:00 | NUR ---
PATIENTS INT DISCONTINUED PER PENDING DISCHARGE BY SN MIRNA. DISCHARGE INSTRUCTIONS REVIEWED WITH PATIENT. PATIENT UNINTERESTED IN DISCHARGE INSTRUCTIONS AND STATES "I JUST NEED TO GET OUT OF HERE. I WILL DO WHAT MY DOCTOR SAYS, NOT THE HOSPITAL." PATIENT PERSONAL BELONGINGS GATHERED. AWAITING RIDE FOR DISCHARGE.
--- NOTE | 2020-08-23 15:20 | NUR ---
PATIENT PERSONAL BELONGINGS GATHERED. PATIENT TAKEN TO PERSONAL VEHICLE VIA WHEELCHAIR. PATIENT DISCHARGED.
--- NOTE | 2020-08-23 15:49 | NUR ---
An APS report was made. APS intake ID#[id number].
== END 2020-08-23 15:20 | disposition home health service (06) ==
LOC: COL.ER 07:41 → MEDICAL 11:32
PROVIDERS: Emergency Medicine
DX: R55 Syncope and collapse (principal); S01.112A Laceration without foreign body of left eyelid and periocular area, initial encounter; W19.XXXA Unspecified fall, initial encounter; Z91.81 History of falling; Y93.9 Activity, unspecified; I95.89 Other hypotension; Y92.9 Unspecified place or not applicable; I25.10 Atherosclerotic heart disease of native coronary artery without angina pectoris; E78.5 Hyperlipidemia, unspecified; G89.29 Other chronic pain; M54.9 Dorsalgia, unspecified; F31.9 Bipolar disorder, unspecified; N32.81 Overactive bladder; J44.9 Chronic obstructive pulmonary disease, unspecified; F17.290 Nicotine dependence, other tobacco product, uncomplicated; K83.8 Other specified diseases of biliary tract; Z95.818 Presence of other cardiac implants and grafts; Z93.0 Tracheostomy status; Z79.899 Other long term (current) drug therapy; Z79.1 Long term (current) use of non-steroidal anti-inflammatories (NSAID)
CPT/HCPCS: G0378; J2310; J2405; J7030; Q9967

== ENCOUNTER 2020-10-15 08:38 | Observation (INO) | payer MEDICARE, MEDICAID ==
[~2020-10-15] VITALS: Ht 154.9 cm; Wt 60.9 kg
[~2020-10-15 08:38] MED LIST changes: +ATARAX 25MG25 MG/TAB PO; +ATIVAN 0.50.5 MG/TAB PO; +CYMBALTA 30MG30 MG PO; +DAZIDOX10 MG PO; +GEODON60 MG PO; +HYTRIN 5MG C5 MG/CAP PO; +NIZORAL CR 30GM TOP; +OXYCONTIN 10MG10 MG PO; +OXYCONTIN15 MG PO; +REMERON 15M15 MG/TA1 PO; +UROCIT-K 1010 MEQ PO; +VALISONE OI 15GM TP
[2020-10-15 10:01] LABS: BASO % 0.3 % (0.0-2.0); EOS # 0.3 (0.0-0.7); EOS % 3.1 % (0-4.0); GRAN # 6.1 (1.4-6.5); GRAN % 67.2 % (42.2-75.2); HEMOGLOBIN 13.4 g/dl (12.5-16.0); LYMPH # 2.1 (1.2-3.4); LYMPH % 23.8 % (20.0-51.0); MEAN CELL VOLUME 94 fl (80.0-100.0); MEAN CORPUSCULAR HEMOGLOBIN 31 pg (27.0-31.0); MEAN CORPUSCULAR HGB CONC 33 g/dl (33.0-37.0); MEAN PLATELET VOLUME 8.6 fl (7.4-10.4); MONO # 0.5 (0.1-0.6); MONO % 5.2 % (1.7-9.3); PLATELET COUNT 223 K/mm3 (130-400); RED BLOOD COUNT 4.37 M/mm3 (4.10-5.30); REDCELL DISTRIBUTION WIDTH-CV 14.9 % (11.5-14.5)
[2020-10-15 10:10] LABS: ALBUMIN 3.6 gm/dL (3.5-5.0); BILIRUBIN,TOTAL 0.2 mg/dL (0.0-1.0); CALCIUM 9.3 mg/dL (8.4-10.2); CREATININE, serum 0.84 (0.52-1.25); TOTAL PROTEIN 6.3 gm/dL (6.4-8.2)
[2020-10-15 11:31] LABS: COLLECTION METHOD CLEAN CATCH
[2020-10-15 11:38] LABS: PH 8 (5-8); SQUAMOUS EPITHELIAL 0-2 /hpf; URINE APPEARANCE Clear; URINE BACTERIA Rare /hpf; URINE BILIRUBIN Negative (NEGATIVE); URINE BLOOD Negative (NEGATIVE); URINE COLOR Straw; URINE GLUCOSE Negative (NEGATIVE); URINE KETONE Negative (NEGATIVE); URINE LEUKOCYTE ESTERASE Negative (NEGATIVE); URINE NITRATE Negative (NEGATIVE); URINE PROTEIN(semi-quant) Negative (NEGATIVE); URINE RBC 0-2 /hpf; URINE UROBILINOGEN Negative (NEGATIVE)
[2020-10-15 11:57] LABS: TRICYCLIC ANTIDEPRESS URINE NEGATIVE
[2020-10-15] MEDS ORDERED: INCRUSE EL62.5 MCG/A IH (12:39)
[2020-10-15] MEDS ORDERED: EMGALITY120 MG/1 M SQ (12:41)
[2020-10-15] MEDS ORDERED: ZETIA 10MG TAB10 MG PO (12:43)
[2020-10-15] MEDS ORDERED: DESYREL 100MG100 MG PO (12:43)
[2020-10-15] MEDS ORDERED: SINGULAIR 110 MG/TAB PO (12:44)
[2020-10-15] MEDS ORDERED: LIPITOR 80MG80 MG PO (12:46)
[2020-10-15] MEDS ORDERED: CELEBREX 200MG200 MG PO (12:48)
[2020-10-15] MEDS ORDERED: MYRBETR50MG PO (12:49)
[2020-10-15] MEDS ORDERED: CREON 120000 U-1 ECC PO (13:13)
[2020-10-15] MEDS ORDERED: ROZEREM 8MG TABL8 MG PO (13:21)
[2020-10-15] MEDS ORDERED: PROVENTIL0.09 MG/A1 IH (13:25)
[2020-10-15] MEDS ORDERED: ROXICODONE 55 MG/TAB PO (13:28)
[2020-10-15] MEDS ORDERED: NYSTATIN100000 U/G TOP (13:28)
[2020-10-15] MEDS ORDERED: TRIAMCINOLONE A15 GM TP (13:28)
[2020-10-15 16:44] VITALS: BP 93/55; PULSE 64; TEMP 98
--- NOTE | 2020-10-15 17:31 | NUR ---
Patient has been continuously c/o pain since arrival. Patient grew very upset with this RN and stated, "I've been dealing with this pain for 4 f*cking weeks. I purposely waited this long so they didn't think I was just here for drugs. I don't know what makes them think 2mg (morphine) is going to work up here if 8mg didn't work in the emergency room." PA and hospitalist were notified. Hospitalist will be coming to speak with patient.
[2020-10-15 19:36] VITALS: BP 96/58; PULSE 63; TEMP 98.1
--- NOTE | 2020-10-15 22:26 | NUR ---
ALERT AND OX4. PATIENT RATING PAIN 10/10 TO LOWER ABDOMEN. NO BM FOR 12 DAYS PER PT. STOOL SOFTNER GIVEN W MED PASSED, RN OFFERS SUPPOSITORY OR ENEMA. PT REFUSES FOR TONIGHT WANTS TO WAIT UNTIL AM. WANTED ALL PMS/SLEEP AID/PAIN MEDS AT ONE TIME SHE STATES THEY DONT WORK OTHERWISE. 1 HR AFTER GIVING MEDS CALLS RN AND SAYS HER EYES ARE TIRED BUT BODY WONT RELAX AND TO PLEASE CALL THE DOCTOR AND ASK FOR MORE PAIN MED. LUZ ROSENTHAL CALLED AND COMES TO BEDSIDE. TERESA ADDED TO MAR DISCUSSED THAT SHE NOT TO GET ANY MORE NARCS AND SHES CONSTIPATED W SOFT BP ALL OF WHICH WILL MAKE WORSE. PT V/U. TERESA GIVEN.
[2020-10-16] VITALS (7 sets, daily range): BP systolic 76–102; BP diastolic 41–56; PULSE 69–97; TEMP 97.5–99.2
--- NOTE | 2020-10-16 05:21 | NUR ---
PT CALLED OUT EVERY 2 HRS OVERNIGHT FOR MORPINE. ALWAYS RATES PAIN A 10/10. DID HAVE A VERY LARGE LOOSE BM THIS AM IN BED/BREIF. CLEANED UP, LINEN GOWN CHANGE. NEEDS MET.
[2020-10-16 05:59] LABS: BASO % 0.3 % (0.0-2.0); EOS # 0.3 (0.0-0.7); EOS % 2.2 % (0-4.0); GRAN # 8.7 (1.4-6.5); GRAN % 78.4 % (42.2-75.2); HEMATOCRIT 38.9 % (37.0-47.0); HEMOGLOBIN 12.5 g/dl (12.5-16.0); LYMPH # 1.6 (1.2-3.4); LYMPH % 13.9 % (20.0-51.0); MEAN CELL VOLUME 96 fl (80.0-100.0); MEAN CORPUSCULAR HEMOGLOBIN 31 pg (27.0-31.0); MEAN CORPUSCULAR HGB CONC 32 g/dl (33.0-37.0); MEAN PLATELET VOLUME 8.6 fl (7.4-10.4); MONO # 0.6 (0.1-0.6); MONO % 4.9 % (1.7-9.3); PLATELET COUNT 209 K/mm3 (130-400); RED BLOOD COUNT 4.05 M/mm3 (4.10-5.30); REDCELL DISTRIBUTION WIDTH-CV 14.9 % (11.5-14.5)
[2020-10-16 06:10] LABS: BILIRUBIN,TOTAL 0.3 mg/dL (0.0-1.0); CALCIUM 8.4 mg/dL (8.4-10.2); CREATININE, serum 0.71 (0.52-1.25); MAGNESIUM 1.9 mg/dL (1.6-2.3); POTASSIUM 3.5 mmol/L (3.4-5.0); TOTAL PROTEIN 5.6 gm/dL (6.4-8.2)
--- NOTE | 2020-10-16 08:51 | NUR ---
Assessment completed, alert/oriented, vital signs stable, reports abdominal pain is unreleived and is severe 02/09, she stated she ihaving nause but not vomitting, she did have a large BM last night but reports this did not help her discomfort at all, abdomen is soft, BS+, patient requests her morpine every 2 hours on the dot/ but denies that it is effective at all, she reports she is not tolerating CL diet very well but is currently drinkging sprite, she refused PO potassium, heart RRR, lungs CTA/ no reps.difficulty, dneies other needs at this time, will cotninue to monitor
--- NOTE | 2020-10-16 10:47 | NUR ---
Initial visit; Patient thanked Hand Braille Transcriber for looking in on her and offering God's blessings and to keep her in Hand Braille Transcriber's prayers.
--- NOTE | 2020-10-16 12:46 | NUR ---
Sales Advisory Manager met with patient to discuss discharge planning. Patient lives alone in [place], [place] and sees Dr. Ibrahim for primary care. Patient obtains medications from [facility] with no difficulties and reports she occasionally uses a front wheeled walker. Patient advised that she is independent with ADLS and plans to return home upon discharge. Patient stated that the plan is for discharge home tomorrow. Patient is interested in completing DPOA-HC. Patient would like to designate her 17 year old son, Elieser and SW explained that DPOA-HC has to be 18 or over. Patient stated she wants to designate her friend, Zheng "Rodrigo" until Elieser turns 18. SW assisted patient in completing the DPOA-HC form, which designated Zheng "Rodrigo" then LYDIA and RN-Thao TA provided witness signature. LYDIA provided original and copies to patient, then placed copy in chart. Discharge Plan: Home
--- NOTE | 2020-10-16 23:32 | NUR ---
ALERT AND OX4. RATES PAIN 10/10 TO LOWER ABD AND BACK . PM MEDS W PRN MEDS GIVEN. POC DISCUSSED. IV FLUIDS RUNNING. POSSIBLE DC TOMORROW. NEEDS MET.
[2020-10-17 04:26] VITALS: BP 77/47; PULSE 68; TEMP 98.4
[2020-10-17 06:48] LABS: HEMOGLOBIN 11.5 g/dl (12.5-16.0); MEAN CELL VOLUME 97 fl (80.0-100.0); MEAN CORPUSCULAR HEMOGLOBIN 31 pg (27.0-31.0); MEAN CORPUSCULAR HGB CONC 32 g/dl (33.0-37.0); MEAN PLATELET VOLUME 8.7 fl (7.4-10.4); PLATELET COUNT 192 K/mm3 (130-400); RED BLOOD COUNT 3.76 M/mm3 (4.10-5.30); REDCELL DISTRIBUTION WIDTH-CV 15.4 % (11.5-14.5)
[2020-10-17 06:51] LABS: HEMATOCRIT 36.3 % (37.0-47.0)
[2020-10-17 06:57] LABS: CALCIUM 8.3 mg/dL (8.4-10.2); CREATININE, serum 0.78 (0.52-1.25); POTASSIUM 3.9 mmol/L (3.4-5.0)
[2020-10-17 08:29] VITALS: BP 99/66; PULSE 50; TEMP 98.3
--- NOTE | 2020-10-17 09:42 | NUR ---
Assessment completed, alert/oriented, vital signs stable but remains hypotensive, patient continues to report moderate-several abd pain, we have cut back significantly on her pain meds, she appears to be tolerating PO intake without any real issues, abd is soft and BS +, had BM 10/16, plans for discharge home today
[2020-10-17 11:41] VITALS: BP 138/84; PULSE 100; TEMP 98.5
--- NOTE | 2020-10-17 11:50 | NUR ---
Six Pack Loader Operator attended clinical rounds with the team and patient to discharge home today. LYDIA followed up with patient about PT recommendation for Home Health. Patient has used [facility] in the past and is open to utilizing them again. LYDIA contacted Cinthya at [facility] and faxed referral/orders. Discharge Plan: Home with [facility].
--- NOTE | 2020-10-17 15:35 | NUR ---
Discharge orders discussed, instructed to follow up with PCP, IV sites removed, leaving with son, WEIGHT CONTROL LECTURER escorted out
== END 2020-10-17 15:37 | disposition home or self-care (01) ==
LOC: COL.ER 08:38 → MEDICAL 11:03
PROVIDERS: Personal Emergency Response Attendant; Physician Assistant; ADMIT Internal Medicine
DX: K85.90 Acute pancreatitis without necrosis or infection, unspecified (principal); K86.1 Other chronic pancreatitis; K59.00 Constipation, unspecified; I25.10 Atherosclerotic heart disease of native coronary artery without angina pectoris; K21.9 Gastro-esophageal reflux disease without esophagitis; E78.5 Hyperlipidemia, unspecified; J44.9 Chronic obstructive pulmonary disease, unspecified; G47.00 Insomnia, unspecified; N32.81 Overactive bladder; E44.0 Moderate protein-calorie malnutrition; R29.6 Repeated falls; R63.4 Abnormal weight loss; F41.9 Anxiety disorder, unspecified; F31.9 Bipolar disorder, unspecified; F17.210 Nicotine dependence, cigarettes, uncomplicated; Z65.8 Other specified problems related to psychosocial circumstances; Z95.1 Presence of aortocoronary bypass graft; Z79.891 Long term (current) use of opiate analgesic; Z79.899 Other long term (current) drug therapy; Z90.710 Acquired absence of both cervix and uterus; Z90.49 Acquired absence of other specified parts of digestive tract
CPT/HCPCS: 99222-AI; 99233-AI; G0378; J1650; J1885; J2270; J2405; J7030

== ENCOUNTER 2020-10-28 11:29 | Emergency (ER) | payer MEDICARE, MEDICAID ==
[2005-12-31 18:10] VITALS: BP 97/63
[~2020-10-28] VITALS: Ht 154.9 cm; Wt 61.4 kg
[~2020-10-28 11:29] MED LIST changes: +CREON 120000 U-1 ECC PO; +NYSTATIN100000 U/G TOP; +PROVENTIL0.09 MG/A1 IH; +ROZEREM 8MG TABL8 MG PO; +TRIAMCINOLONE A15 GM TP
[2020-10-28 12:08] VITALS: TEMP 98.6
[2020-10-28 12:26] LABS: COLLECTION METHOD CLEAN CATCH
[2020-10-28 12:32] LABS: PH 6 (5-8); URINE APPEARANCE Hazy; URINE BACTERIA None Seen /hpf; URINE BILIRUBIN Negative (NEGATIVE); URINE BLOOD Negative (NEGATIVE); URINE COLOR Yellow; URINE GLUCOSE Negative (NEGATIVE); URINE KETONE Negative (NEGATIVE); URINE LEUKOCYTE ESTERASE 2+ (NEGATIVE); URINE NITRATE Negative (NEGATIVE); URINE PROTEIN(semi-quant) Negative (NEGATIVE); URINE UROBILINOGEN Negative (NEGATIVE)
[2020-10-28 12:45] LABS: BASO % 0.4 % (0.0-2.0); EOS # 0.4 (0.0-0.7); EOS % 4.5 % (0-4.0); GRAN # 5.6 (1.4-6.5); GRAN % 66.9 % (42.2-75.2); HEMATOCRIT 40.9 % (37.0-47.0); HEMOGLOBIN 13.5 g/dl (12.5-16.0); LYMPH # 1.9 (1.2-3.4); LYMPH % 22.6 % (20.0-51.0); MEAN CELL VOLUME 95 fl (80.0-100.0); MEAN CORPUSCULAR HEMOGLOBIN 31 pg (27.0-31.0); MEAN CORPUSCULAR HGB CONC 33 g/dl (33.0-37.0); MEAN PLATELET VOLUME 8.2 fl (7.4-10.4); MONO # 0.4 (0.1-0.6); MONO % 5.2 % (1.7-9.3); PLATELET COUNT 303 K/mm3 (130-400); RED BLOOD COUNT 4.33 M/mm3 (4.10-5.30)
[2020-10-28 13:00] LABS: ALANINE AMINOTRANSFERASE 16 U/L (4-34); ALBUMIN 3.8 gm/dL (3.5-5.0); ALKALINE PHOSPHATASE 81 U/L (50-136); ANION GAP 6 mmol/L (7-16); AST,SGOT 24 U/L (15-37); BILIRUBIN,TOTAL 0.4 mg/dL (0.0-1.0); BLOOD UREA NITROGEN 10 mg/dL (7-17); CALCIUM 9.4 mg/dL (8.4-10.2); CARBON DIOXIDE 23 mmol/L (22-30); CHLORIDE 110 mmol/L (98-107); CREATININE, serum 1.09 (0.52-1.25); GLUCOSE 93 mg/dL (74-106); LIPASE 67 U/L (23-300); POTASSIUM 3.8 mmol/L (3.4-5.0); SODIUM 138 mmol/L (137-145); TOTAL PROTEIN 6.6 gm/dL (6.4-8.2)
[2020-10-28 13:08] LABS: C-REACTIVE PROTEIN < 0.5 mg/dL (0.0-0.9)
[2020-10-28 15:13] VITALS: BP 102/70; PULSE 63
== END 2020-10-28 15:20 | disposition home or self-care (01) ==
LOC: COL.ER 11:29
PROVIDERS: Family Medicine
DX: R10.11 Right upper quadrant pain (principal); I25.10 Atherosclerotic heart disease of native coronary artery without angina pectoris; J44.9 Chronic obstructive pulmonary disease, unspecified; E78.5 Hyperlipidemia, unspecified; F31.9 Bipolar disorder, unspecified; Z90.49 Acquired absence of other specified parts of digestive tract; Z88.8 Allergy status to other drugs, medicaments and biological substances; Z79.899 Other long term (current) drug therapy
CPT/HCPCS: J2270; J2405; J7120

== ENCOUNTER 2020-10-29 03:06 | Observation (INO) | payer MEDICARE, MEDICAID ==
[~2020-10-29] VITALS: Ht 154.9 cm; Wt 61.4 kg
[2020-10-29 03:55] LABS: BASO % 0.4 % (0.0-2.0); EOS # 0.4 (0.0-0.7); EOS % 4.6 % (0-4.0); GRAN # 5.1 (1.4-6.5); GRAN % 55.5 % (42.2-75.2); HEMATOCRIT 42.9 % (37.0-47.0); LYMPH # 3.2 (1.2-3.4); LYMPH % 34.6 % (20.0-51.0); MEAN CELL VOLUME 95 fl (80.0-100.0); MEAN CORPUSCULAR HEMOGLOBIN 31 pg (27.0-31.0); MEAN CORPUSCULAR HGB CONC 33 g/dl (33.0-37.0); MEAN PLATELET VOLUME 8.2 fl (7.4-10.4); MONO # 0.4 (0.1-0.6); MONO % 4.8 % (1.7-9.3); PLATELET COUNT 340 K/mm3 (130-400); RED BLOOD COUNT 4.54 M/mm3 (4.10-5.30); REDCELL DISTRIBUTION WIDTH-CV 15.1 % (11.5-14.5)
[2020-10-29 04:02] LABS: ALBUMIN 3.9 gm/dL (3.5-5.0); BILIRUBIN,TOTAL 0.5 mg/dL (0.0-1.0); CALCIUM 9.7 mg/dL (8.4-10.2); CREATININE, serum 1.1 (0.52-1.25); POTASSIUM 4.1 mmol/L (3.4-5.0); TOTAL PROTEIN 6.6 gm/dL (6.4-8.2)
[2020-10-29 09:16] VITALS: BP 96/70; PULSE 65; TEMP 97.9
--- NOTE | 2020-10-29 11:25 | NUR ---
First visit from the printing roller polisher. No needs right now.
--- NOTE | 2020-10-29 15:00 | NUR ---
Clinical Ob met with patient to discuss discharge planning. Patient lives alone in [place], [place] and sees Dr. Ibrahim for primary care. Patient obtains medications from [facility] with no difficulties. Patient has a front wheeled walker she uses occasionally and reports she has [facility]. Patient plans to return home upon discharge. PT/OT ordered. Patient has Advance Directives in EMR which designates Zheng "Rodrigo" Kendall as DPOA-HC. SW contacted Cinthya at [facility] and faxed updates. Discharge Plan: Home with Home Health.
[2020-10-29 17:15] VITALS: BP 115/69; PULSE 74; TEMP 97.9
--- NOTE | 2020-10-29 20:00 | NUR ---
Initial shift assessment done- states having abd pain 02/09, states she just finished eating her supper- will give a roxicodone at this time-- understands Morphine IV is not due until 2044. Iv fluids of NS at 75cc/hr. Up to bathroom at this time- steady on feet.
[2020-10-29 20:39] VITALS: BP 98/69; PULSE 65; TEMP 98
[2020-10-29 23:36] VITALS: BP 98/55; PULSE 60; TEMP 97.8
[2020-10-30 03:46] VITALS: BP 99/66; PULSE 59; TEMP 98.6
--- NOTE | 2020-10-30 05:53 | NUR ---
Has been sleeping all night-- when awakened for vitals would ask for Morphine IV but by the time got in the room she would be sound asleep-- Had Morphine for abd pain x2 this shift. VSS
[2020-10-30 06:40] LABS: BASO # 0.1 (0.0-0.2); BASO % 0.6 % (0.0-2.0); EOS # 0.5 (0.0-0.7); EOS % 5.6 % (0-4.0); GRAN # 6.1 (1.4-6.5); GRAN % 65.5 % (42.2-75.2); HEMATOCRIT 40.2 % (37.0-47.0); HEMOGLOBIN 13.2 g/dl (12.5-16.0); LYMPH # 2.2 (1.2-3.4); LYMPH % 23.4 % (20.0-51.0); MEAN CELL VOLUME 94 fl (80.0-100.0); MEAN CORPUSCULAR HEMOGLOBIN 31 pg (27.0-31.0); MEAN CORPUSCULAR HGB CONC 33 g/dl (33.0-37.0); MEAN PLATELET VOLUME 8.4 fl (7.4-10.4); MONO # 0.4 (0.1-0.6); MONO % 4.6 % (1.7-9.3); PLATELET COUNT 326 K/mm3 (130-400); RED BLOOD COUNT 4.26 M/mm3 (4.10-5.30); REDCELL DISTRIBUTION WIDTH-CV 15.1 % (11.5-14.5)
[2020-10-30 06:47] LABS: CALCIUM 9.2 mg/dL (8.4-10.2); CREATININE, serum 0.78 (0.52-1.25); MAGNESIUM 1.8 mg/dL (1.6-2.3); POTASSIUM 4.2 mmol/L (3.4-5.0)
[2020-10-30 08:34] VITALS: BP 108/76; PULSE 67; TEMP 97.8
[2020-10-30] MEDS ORDERED: FLAGYL500 MG PO (08:54)
[2020-10-30] MEDS ORDERED: OMNICEF 300MG300 MG PO (08:54)
[2020-10-30] MEDS ORDERED: TYLENOL 325MG325 MG PO (08:55)
[2020-10-30] MEDS ORDERED: PROTONIX20 MG PO (08:59)
--- NOTE | 2020-10-30 09:35 | NUR ---
Assessment completed, alert/oriented, vital signs stable/ BP remain soft at baseline, she reporst "feeling a little better", but pain is still rated 8/10 and requested pain meds, she is tolerating PO intake just fine without any N/V and denies that eating makes pain any worse, abd is soft and BS+, heart RRR, lungs CTA, denies other needs, discussed plan of care with , plans for discharge home today
--- NOTE | 2020-10-30 10:30 | NUR ---
The patient to tentatively discharge today, 10/30 with [facility]. PT/OT/residential services. Lightning Protection Installer faxed discharge orders. There are no additional needs.
--- NOTE | 2020-10-30 12:18 | NUR ---
discharge instructions reviewed with patient, instructe to follow up with PCP as we have scheduled for her, instructed to finish course of abx/ scripts sent to pharmacy for her, IV sites x2 removed, tele removed, personaly belongings returned from the safe, I escorted her out the door by wheelchair and she is leaving with her son
== END 2020-10-30 12:21 | disposition home or self-care (01) ==
LOC: COL.ER 03:06 → MEDICAL 06:15
PROVIDERS: Personal Emergency Response Attendant; ADMIT Internal Medicine
DX: K57.92 Diverticulitis of intestine, part unspecified, without perforation or abscess without bleeding (principal); K29.80 Duodenitis without bleeding; K52.9 Noninfective gastroenteritis and colitis, unspecified; K59.00 Constipation, unspecified; G89.29 Other chronic pain; I25.10 Atherosclerotic heart disease of native coronary artery without angina pectoris; J44.9 Chronic obstructive pulmonary disease, unspecified; F17.290 Nicotine dependence, other tobacco product, uncomplicated; F99 Mental disorder, not otherwise specified; F31.9 Bipolar disorder, unspecified; Z98.51 Tubal ligation status; Z90.49 Acquired absence of other specified parts of digestive tract; Z90.710 Acquired absence of both cervix and uterus; Z79.891 Long term (current) use of opiate analgesic; Z79.899 Other long term (current) drug therapy
CPT/HCPCS: C9113; G0378; J0696; J1200; J1650; J1956; J2270; J2405; J7030; Q9967

== ENCOUNTER 2021-04-02 08:35 | Emergency (ER) | payer MEDICARE, MEDICAID ==
[~2021-04-02] VITALS: Ht 154.9 cm; Wt 62.3 kg
[~2021-04-02 08:35] MED LIST changes: +OMNICEF 300MG300 MG PO; +PROTONIX20 MG PO
[2021-04-02 08:37] VITALS: TEMP 98.6
[2021-04-02 09:45] LABS: BASO % 0.4 % (0.0-2.0); EOS # 0.3 K/mm3 (0.0-0.7); EOS % 5.3 % (0-4.0); GRAN # 3.1 K/mm3 (1.4-6.5); GRAN % 54.4 % (42.2-75.2); HEMATOCRIT 41.4 % (37.0-47.0); HEMOGLOBIN 13.9 g/dl (12.5-16.0); LYMPH # 1.8 K/mm3 (1.2-3.4); LYMPH % 31.7 % (20.0-51.0); MEAN CELL VOLUME 97 fl (80.0-100.0); MEAN CORPUSCULAR HEMOGLOBIN 32 pg (27.0-31.0); MEAN CORPUSCULAR HGB CONC 34 g/dl (33.0-37.0); MEAN PLATELET VOLUME 8.9 fl (7.4-10.4); MONO # 0.4 K/mm3 (0.1-0.6); MONO % 7.8 % (1.7-9.3); PLATELET COUNT 246 K/mm3 (130-400); RED BLOOD COUNT 4.29 M/mm3 (4.10-5.30); REDCELL DISTRIBUTION WIDTH-CV 12.5 % (11.5-14.5)
[2021-04-02 10:07] LABS: ALANINE AMINOTRANSFERASE 23 U/L (0-55); ALBUMIN 3.7 gm/dL (3.5-5.0); ALKALINE PHOSPHATASE 86 U/L (40-150); ANION GAP 6 mmol/L (7-16); AST,SGOT 27 U/L (5-34); BILIRUBIN,TOTAL 0.6 mg/dL (0.2-1.2); BLOOD UREA NITROGEN 7 mg/dL (7-19); CARBON DIOXIDE 22 mmol/L (22-29); CHLORIDE 112 mmol/L (98-107); CREATININE, serum 0.98 mg/dL (0.57-1.11); GLUCOSE 98 mg/dL (70-99); POTASSIUM 4.4 mmol/L (3.5-4.5); SODIUM 140 mmol/L (136-145); TOTAL PROTEIN 5.8 gm/dL (6.2-8.1)
[2021-04-02 10:16] LABS: TROPONIN-I < 0.010 ng/mL (0.00-0.033)
--- NOTE | 2021-04-02 11:26 | NUR ---
fellmongery worker met with patient and provided written and verbal information on advance directives. Patient was administered medication that will prohibit patient in completing the directives at this time. Patient verbalizes understanding and will take documents to complete at a later time. Worker collaborated with patient's nurse regarding the above information.
[2021-04-02 13:53] VITALS: BP 89/68; PULSE 80
== END 2021-04-02 14:10 | disposition home or self-care (01) ==
LOC: COL.ER 08:35
PROVIDERS: Personal Emergency Response Attendant
DX: R07.89 Other chest pain (principal); I95.9 Hypotension, unspecified; I25.10 Atherosclerotic heart disease of native coronary artery without angina pectoris; Z95.5 Presence of coronary angioplasty implant and graft; Z79.891 Long term (current) use of opiate analgesic
CPT/HCPCS: J2405; J3010; J7030; Q9967

== ENCOUNTER 2021-04-24 06:54 | Emergency (ER) | payer MEDICARE, MEDICAID ==
[~2021-04-24] VITALS: Ht 154.9 cm; Wt 63.6 kg
[2021-04-24 06:56] VITALS: TEMP 97
[2021-04-24 07:33] LABS: BASO % 0.3 % (0.0-2.0); EOS # 0.3 K/mm3 (0.0-0.7); EOS % 4.4 % (0.0-4.0); GRAN # 3.6 K/mm3 (1.4-6.5); GRAN % 59.6 % (42.2-75.2); HEMATOCRIT 37.8 % (37.0-47.0); HEMOGLOBIN 12.7 g/dl (12.5-16.0); LYMPH # 1.7 K/mm3 (1.2-3.4); MEAN CELL VOLUME 97 fl (80.0-100.0); MEAN CORPUSCULAR HEMOGLOBIN 33 pg (27-31); MEAN CORPUSCULAR HGB CONC 34 g/dl (33.0-37.0); MEAN PLATELET VOLUME 8.4 fl (7.4-10.4); MONO # 0.4 K/mm3 (0.1-0.6); MONO % 6.5 % (1.7-9.3); PLATELET COUNT 215 K/mm3 (130-400); REDCELL DISTRIBUTION WIDTH-CV 12.3 % (11.5-14.5)
[2021-04-24 07:37] LABS: ALANINE AMINOTRANSFERASE 32 U/L (0-55); ALBUMIN 3.4 gm/dL (3.5-5.0); ALKALINE PHOSPHATASE 86 U/L (40-150); ANION GAP 6 mmol/L (7-16); AST,SGOT 31 U/L (5-34); BILIRUBIN,TOTAL 0.6 mg/dL (0.2-1.2); BLOOD UREA NITROGEN 9 mg/dL (7-19); CALCIUM 8.6 mg/dL (8.4-10.2); CARBON DIOXIDE 23 mmol/L (22-29); CHLORIDE 109 mmol/L (98-107); CREATININE, serum 0.87 mg/dL (0.57-1.11); GLUCOSE 107 mg/dL (70-99); POTASSIUM 3.5 mmol/L (3.5-4.5); SODIUM 138 mmol/L (136-145); TOTAL PROTEIN 5.5 gm/dL (6.2-8.1)
[2021-04-24 07:45] LABS: TROPONIN-I < 0.010 ng/mL (0.00-0.033)
[2021-04-24] MEDS ORDERED: OMNICEF 300MG300 MG PO (08:25)
[2021-04-24] MEDS ORDERED: ZITHROMAX TRI-500 MG PO (08:25)
[2021-04-24 08:43] VITALS: BP 106/72; PULSE 60
== END 2021-04-24 10:40 | disposition home or self-care (01) ==
LOC: COL.ER 06:54
PROVIDERS: Emergency Medicine
DX: J18.9 Pneumonia, unspecified organism (principal); J44.9 Chronic obstructive pulmonary disease, unspecified; I25.10 Atherosclerotic heart disease of native coronary artery without angina pectoris; F31.9 Bipolar disorder, unspecified; Z99.81 Dependence on supplemental oxygen; Z20.822 Contact with and (suspected) exposure to COVID-19; Z79.899 Other long term (current) drug therapy
CPT/HCPCS: J3010

== ENCOUNTER 2021-04-28 02:59 | Emergency (ER) | payer MEDICARE, MEDICAID ==
[~2021-04-28] VITALS: Ht 154.9 cm; Wt 63.6 kg
[~2021-04-28 02:59] MED LIST changes: +ZITHROMAX TRI-500 MG PO
[2021-04-28 03:02] VITALS: TEMP 98.5
[2021-04-28] MEDS ORDERED: ROBAXIN 75750 MG/TAB PO (03:12)
[2021-04-28 03:51] VITALS: BP 110/70; PULSE 53
== END 2021-04-28 03:54 | disposition home or self-care (01) ==
LOC: COL.ER 02:59
DX: G89.29 Other chronic pain (principal); M54.50 Low back pain, unspecified; I25.10 Atherosclerotic heart disease of native coronary artery without angina pectoris; J44.9 Chronic obstructive pulmonary disease, unspecified; F31.9 Bipolar disorder, unspecified; Z79.899 Other long term (current) drug therapy; Z79.1 Long term (current) use of non-steroidal anti-inflammatories (NSAID)

== ENCOUNTER 2021-05-17 08:19 | Emergency (ER) | payer MEDICARE, MEDICAID ==
[~2021-05-17] VITALS: Ht 154.9 cm; Wt 63.6 kg
[~2021-05-17 08:19] MED LIST changes: +ROBAXIN 75750 MG/TAB PO
[2021-05-17 08:21] VITALS: TEMP 98.1
[2021-05-17 08:34] LABS: BASO % 0.3 % (0.0-2.0); EOS # 0.4 K/mm3 (0.0-0.7); EOS % 5.4 % (0.0-4.0); GRAN # 4.2 K/mm3 (1.4-6.5); GRAN % 53.7 % (42.2-75.2); HEMOGLOBIN 12.9 g/dl (12.5-16.0); LYMPH # 2.5 K/mm3 (1.2-3.4); LYMPH % 32.1 % (20.0-51.0); MEAN CELL VOLUME 103 fl (80.0-100.0); MEAN CORPUSCULAR HEMOGLOBIN 32 pg (27-31); MEAN CORPUSCULAR HGB CONC 32 g/dl (33.0-37.0); MEAN PLATELET VOLUME 8.3 fl (7.4-10.4); MONO # 0.6 K/mm3 (0.1-0.6); MONO % 8.2 % (1.7-9.3); PLATELET COUNT 239 K/mm3 (130-400); REDCELL DISTRIBUTION WIDTH-CV 12.4 % (11.5-14.5)
[2021-05-17 08:51] LABS: ALBUMIN 3.6 gm/dL (3.5-5.0); BILIRUBIN,TOTAL 0.6 mg/dL (0.2-1.2); C-REACTIVE PROTEIN 0.03 mg/dL (0.00-0.50); CALCIUM 8.9 mg/dL (8.4-10.2); CREATININE, serum 0.94 mg/dL (0.57-1.11); POTASSIUM 4.2 mmol/L (3.5-4.5)
[2021-05-17 09:13] VITALS: BP 97/73; PULSE 78
== END 2021-05-17 09:17 | disposition home or self-care (01) ==
LOC: COL.ER 08:19
PROVIDERS: Family Medicine
DX: R10.9 Unspecified abdominal pain (principal); J44.9 Chronic obstructive pulmonary disease, unspecified; F31.9 Bipolar disorder, unspecified; I25.10 Atherosclerotic heart disease of native coronary artery without angina pectoris; Z79.899 Other long term (current) drug therapy
CPT/HCPCS: J2405; J7120

== ENCOUNTER 2021-09-03 10:50 | Day surgery (SDC) | payer MEDICARE, MEDICAID ==
[2005-12-31 18:10] VITALS: BP 97/63
[2021-09-03] VITALS (9 sets, daily range): BP systolic 83–117; BP diastolic 55–89; PULSE 50–67; TEMP 98.9
[~2021-09-03] VITALS: Ht 154.9 cm; Wt 82.3 kg
[2021-09-03 12:30] LABS: HEMATOCRIT 43.6 % (37.0-47.0); HEMOGLOBIN 14.3 g/dl (12.5-16.0); MEAN CELL VOLUME 99 fl (80.0-100.0); MEAN CORPUSCULAR HEMOGLOBIN 33 pg (27-31); MEAN CORPUSCULAR HGB CONC 33 g/dl (33.0-37.0); MEAN PLATELET VOLUME 8.9 fl (7.4-10.4); PLATELET COUNT 223 K/mm3 (130-400); RED BLOOD COUNT 4.39 M/mm3 (4.10-5.30); REDCELL DISTRIBUTION WIDTH-CV 11.7 % (11.5-14.5)
[2021-09-03 12:32] LABS: CALCIUM 8.6 mg/dL (8.4-10.2); CREATININE, serum 0.95 mg/dL (0.57-1.11)
[2021-09-03 12:33] LABS: INR 0.9 (0.8-3.0); PROTHROMBIN TIME 10.7 SECONDS (9.7-12.8)
[2021-09-03 12:35] LABS: PARTIAL THROMBOPLASTIN TIME 35.4 SECONDS (26.0-37.0)
[2021-09-03] MEDS ORDERED: MOVANTIK25 MG PO (12:35)
[2021-09-03] MEDS ORDERED: KAPSPARGO SPRIN25 MG PO (12:36)
[2021-09-03] MEDS ORDERED: MAGNESIUM200 MG PO (12:37)
[2021-09-03] MEDS ORDERED: ASPIRIN E.C. 8181 MG PO (12:38)
[2021-09-03] MEDS ORDERED: REMERON30 MG PO (12:40)
[2021-09-03] MEDS ORDERED: OXYCONTIN 10MG10 MG PO (12:40)
[2021-09-03] MEDS ORDERED: KLONOPIN 0.5MG0.5 MG PO (12:41)
--- NOTE | 2021-09-03 13:15 | NUR ---
PATIENT ALERT AND ORIENTED, DENIES CHEST PAIN BUT REPORTS CHRONIC BACK PAIN. CONSENT VERIFIED. PATIENT ATE BREAKFAST THIS AM. SEE MERGE FOR VITALS AND MEDICATION ADMINISTRATION
--- NOTE | 2021-09-03 16:06 | NUR ---
Pt has done well during her recovery. Pt is ready for departure at this time. TR band has been removed, site dressed with bandaid, folded 2x2 and coban. cms remains intact distal. Pt is up and ambulatory with steady gait. Pt appears tired and sbp 90's. pt states has been exhausted, and that this is a normal bp for her. She denies any dizziness or any other problem. IV is dc'd with cath intact, dressing is applied. I reviewed dc/fu instructions again with pt who denied any questions. I escorted her to her son's vehicle via wheelchair.
--- NOTE | 2021-09-03 17:00 | NUR ---
Clarification - pt was discharged and departed at 1700. instructions were reviewed with pt by Britta NICOLE at 1606, then were reviewed again prior to departure at 1700.
== END 2021-09-03 17:00 | disposition home or self-care (01) ==
LOC: COL.CAR 10:50
PROVIDERS: Internal Medicine Cardiovascular Disease
DX: I25.10 Atherosclerotic heart disease of native coronary artery without angina pectoris (principal)
CPT/HCPCS: C1769; J1644; J2250; J3010

== ENCOUNTER 2022-06-11 09:24 | Emergency (ER) | payer MEDICARE, MEDICAID ==
[~2022-06-11] VITALS: Ht 154.9 cm; Wt 86.4 kg
[~2022-06-11 09:24] MED LIST changes: +KAPSPARGO SPRIN25 MG PO; +MAGNESIUM200 MG PO; +MOVANTIK25 MG PO; +REMERON30 MG PO
[2022-06-11 09:26] VITALS: TEMP 98.3
[2022-06-11] MEDS ORDERED: BENADRYL25 M2 PO (09:34)
[2022-06-11 10:45] LABS: BASO % 0.3 % (0.0-2.0); EOS # 0.4 K/mm3 (0.0-0.7); EOS % 6.6 % (0.0-4.0); GRAN # 3.3 K/mm3 (1.4-6.5); GRAN % 57.5 % (42.2-75.2); HEMATOCRIT 40.4 % (37.0-47.0); HEMOGLOBIN 13.2 g/dl (12.5-16.0); LYMPH # 1.6 K/mm3 (1.2-3.4); LYMPH % 27.5 % (20.0-51.0); MEAN CELL VOLUME 98 fl (80.0-100.0); MEAN CORPUSCULAR HEMOGLOBIN 32 pg (27-31); MEAN CORPUSCULAR HGB CONC 33 g/dl (33.0-37.0); MEAN PLATELET VOLUME 8.9 fl (7.4-10.4); MONO # 0.5 K/mm3 (0.1-0.6); MONO % 7.9 % (1.7-9.3); PLATELET COUNT 221 K/mm3 (130-400); RED BLOOD COUNT 4.14 M/mm3 (4.10-5.30); REDCELL DISTRIBUTION WIDTH-CV 13.8 % (11.5-14.5)
[2022-06-11 11:00] LABS: ALANINE AMINOTRANSFERASE 15 U/L (0-55); ALKALINE PHOSPHATASE 101 U/L (40-150); ANION GAP 5 mmol/L (7-16); AST,SGOT 17 U/L (5-34); BILIRUBIN,TOTAL 0.2 mg/dL (0.2-1.2); BLOOD UREA NITROGEN 16 mg/dL (7-19); CALCIUM 8.8 mg/dL (8.4-10.2); CARBON DIOXIDE 19 mmol/L (22-29); CHLORIDE 116 mmol/L (98-107); CREATININE, serum 0.85 mg/dL (0.57-1.11); GLUCOSE 92 mg/dL (70-99); POTASSIUM 4.3 mmol/L (3.5-4.5); SODIUM 140 mmol/L (136-145); TOTAL PROTEIN 5.5 gm/dL (6.2-8.1)
[2022-06-11 11:20] LABS: TROPONIN-I < 0.010 ng/mL (0.00-0.033)
[2022-06-11 13:40] VITALS: BP 112/69; PULSE 65
== END 2022-06-11 13:54 | disposition home or self-care (01) ==
LOC: COL.ER 09:24
PROVIDERS: Personal Emergency Response Attendant
DX: R07.9 Chest pain, unspecified (principal)
CPT/HCPCS: J2060

== ENCOUNTER 2022-07-30 18:34 | Emergency (ER) | payer MEDICARE, MEDICAID ==
[~2022-07-30] VITALS: Ht 154.9 cm; Wt 86.4 kg
[2022-07-30 18:34] VITALS: TEMP 97.7
[~2022-07-30 18:34] MED LIST changes: +BENADRYL25 M2 PO
[2022-07-30 18:49] LABS: BASO % 0.3 % (0.0-2.0); EOS # 0.4 K/mm3 (0.0-0.7); EOS % 4.8 % (0.0-4.0); GRAN # 5.7 K/mm3 (1.4-6.5); GRAN % 63.9 % (42.2-75.2); HEMATOCRIT 40.8 % (37.0-47.0); HEMOGLOBIN 13.6 g/dl (12.5-16.0); LYMPH # 2.3 K/mm3 (1.2-3.4); LYMPH % 25.3 % (20.0-51.0); MEAN CELL VOLUME 98 fl (80.0-100.0); MEAN CORPUSCULAR HEMOGLOBIN 33 pg (27-31); MEAN CORPUSCULAR HGB CONC 33 g/dl (33.0-37.0); MEAN PLATELET VOLUME 8.8 fl (7.4-10.4); MONO # 0.5 K/mm3 (0.1-0.6); MONO % 5.5 % (1.7-9.3); PLATELET COUNT 285 K/mm3 (130-400); RED BLOOD COUNT 4.15 M/mm3 (4.10-5.30); REDCELL DISTRIBUTION WIDTH-CV 13.6 % (11.5-14.5)
[2022-07-30 19:44] LABS: ALBUMIN 3.4 gm/dL (3.5-5.0); BILIRUBIN,TOTAL 0.3 mg/dL (0.2-1.2); C-REACTIVE PROTEIN 0.22 mg/dL (0.00-0.50); CALCIUM 8.6 mg/dL (8.4-10.2); CREATININE, serum 1.02 mg/dL (0.57-1.11); POTASSIUM 3.7 mmol/L (3.5-4.5); TOTAL PROTEIN 5.8 gm/dL (6.2-8.1)
[2022-07-30 20:20] VITALS: BP 112/81; PULSE 80
== END 2022-07-30 20:25 | disposition home or self-care (01) ==
LOC: COL.ER 18:34
PROVIDERS: Family Medicine; Nurse Practitioner
DX: R10.11 Right upper quadrant pain (principal); N39.0 Urinary tract infection, site not specified; Z87.19 Personal history of other diseases of the digestive system; Z79.1 Long term (current) use of non-steroidal anti-inflammatories (NSAID)
CPT/HCPCS: J2270; J7030

== ENCOUNTER 2024-01-14 08:58 | Day surgery (SDC) | payer MEDICARE, MEDICAID ==
[~2024-01-14] VITALS: Ht 154.9 cm; Wt 90.0 kg
[~2024-01-14 08:58] MED LIST changes: +BUSPAR10 MG PO; +K-DUR 10 MEQ T10 MEQ PO; +LITHOBID 3300 MG/TAB PO; +LR 1,000 ML IV SCH; +Ondansetron 4 MG/2 ML VIAL IV PRN
[2024-01-14] MEDS ORDERED: Lidocaine PF 2% (20 MG/ML) 5 ML VIAL ONE (10:46)
[2024-01-14] MEDS ORDERED: ELAVIL100 MG PO (10:52)
[2024-01-14] MEDS ORDERED: BUSPAR5 MG PO (10:58)
[2024-01-14] MEDS ORDERED: DAYVIGO10 MG PO (10:58)
[2024-01-14] MEDS ORDERED: DEPAKOTE500 MG PO (11:01)
[2024-01-14] MEDS ORDERED: EMGALITY120 MG/1 M SQ (11:01)
[2024-01-14] MEDS ORDERED: MAGNESIUM PO (11:02)
[2024-01-14] MEDS ORDERED: VISTARIL100 MG PO (11:02)
[2024-01-14] MEDS ORDERED: TIROSINT50 MC1 PO (11:03)
[2024-01-14] MEDS ORDERED: NYSTATIN100000 U/1 TOP (11:04)
[2024-01-14] MEDS ORDERED: NALTREXONE PO (11:04)
[2024-01-14] MEDS ORDERED: MINIPRESS2 MG PO (11:05)
[2024-01-14] MEDS ORDERED: TOPAMAX50 MG PO (11:05)
[2024-01-14] MEDS ORDERED: MYLANTA (11:06)
[2024-01-14] MEDS ORDERED: DESYREL 100MG100 MG PO (11:06)
[2024-01-14 11:08] VITALS: BP 111/82; PULSE 70; TEMP 97.6
[2024-01-14 11:20] VITALS: BP 93/73; PULSE 70; TEMP 97.5
[2024-01-14 11:35] VITALS: BP 108/80; PULSE 74
--- NOTE | 2024-01-14 11:52 | NUR ---
1120 RETURNS TO ROOM 3 PER CART. AWAKE, ALERT. RESP UNLABORED. AMBULATES TO RECLINER WITH STAND BY ASSIST. DENIES NAUSEA, ABD/CHEST PAIN OR DYSPHAGIA. VITAL SIGNS OBTAINED. CALL LIGHT AT SIDE. FRIEND IN ROOM 1134 DR NIX HERE TO VISIT WITH PATIENT 1135 TOLERATES PO SODA AND MUFFIN WITHOUT NAUSEA. SWALLOWS WITHOUT DIFFICULTY. DISCHARGE INSTRUCTIONS REVIEWED. PATIENT VERBALIES UNDERSTANDING. COPY PROVIDED IN DISCHARGE FOLDER. 1145 DRESSES SELF
== END 2024-01-14 11:52 | disposition home or self-care (01) ==
LOC: SDCO 08:58
DX: K21.9 Gastro-esophageal reflux disease without esophagitis (principal); F17.210 Nicotine dependence, cigarettes, uncomplicated; Z98.890 Other specified postprocedural states
CPT/HCPCS: J2704; J7120

== ENCOUNTER 2024-01-28 09:42 | Emergency (ER) | payer MEDICARE, MEDICAID ==
[~2024-01-28] VITALS: Ht 154.9 cm; Wt 92.3 kg
[~2024-01-28 09:42] MED LIST changes: +BUSPAR5 MG PO; +DAYVIGO10 MG PO; +DEPAKOTE500 MG PO; +ELAVIL100 MG PO; -LR 1,000 ML IV SCH; +MAGNESIUM PO; +MYLANTA; +NALTREXONE PO; +NYSTATIN100000 U/1 TOP; -Ondansetron 4 MG/2 ML VIAL IV PRN; +TIROSINT50 MC1 PO; +TOPAMAX50 MG PO; +VISTARIL100 MG PO
[2024-01-28 09:44] VITALS: TEMP 98.5
[2024-01-28 10:38] LABS: COLLECTION METHOD CLEAN CATCH
[2024-01-28 10:58] LABS: PH 6.5 (5.0-8.5); URINE APPEARANCE CLEAR (CLEAR/HAZY); URINE BLOOD NEGATIVE (NEGATIVE); URINE COLOR YELLOW (YELLOW); URINE GLUCOSE NEGATIVE (NEGATIVE); URINE KETONE NEGATIVE (NEGATIVE); URINE NITRATE NEGATIVE (NEGATIVE); URINE PROTEIN(semi-quant) NEGATIVE (NEGATIVE); URINE UROBILINOGEN 0.2 E.U/dL (0.2-1.0)
[2024-01-28] MEDS ORDERED: droPERidol 2.5 MG/ML 2 ML VIAL IM ONE (11:00)
[2024-01-28 11:50] VITALS: BP 114/66; PULSE 78
== END 2024-01-28 11:57 | disposition home or self-care (01) ==
LOC: COL.ER 09:42
PROVIDERS: Physician Assistant
DX: M54.50 Low back pain, unspecified (principal); G89.29 Other chronic pain; N39.0 Urinary tract infection, site not specified; F17.210 Nicotine dependence, cigarettes, uncomplicated; Z88.0 Allergy status to penicillin
CPT/HCPCS: J1790